=== PATIENT | male | born 1945 | race Caucasian/White ===

== ENCOUNTER 2024-12-18 11:32 | Outpatient (AMB) | payer MEDICARE, SELFPAY ==
--- NOTE | 2024-12-18 12:14 | MHC.OFFVIS ---
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 He is presenting with evaluation concerns for tremors and neuropathy. He notes that despite an increased dosage of carbidopa-levodopa, prescribed to manage resting hand tremors indicative of Parkinson's Disease, the symptoms have remained unimproved. His current approach to suppressing tremors involves intentional thumb movements. Parkinsonian symptoms have also manifested with gait irregularities, primarily shuffling movements, without significant climate change risk assessor the last few months. The patient is concurrently experiencing symptoms of neuropathy characterized by burning pain and muscle atrophy. The neuropathy is managed with high doses of gabapentin, supplemented by oxycodone for pain relief. Despite these measures, functional difficulties persist, contributing to deficits in hand strength and dexterity. His medical history includes atrial fibrillation managed with an implant and well-controlled diabetes with maintained blood sugar levels. Significant past events include a fall resulting in trauma and a leg bypass surgery. There is no recent change in symptoms or additional systemic manifestations noted. [facility] Medical History (Updated 12/18/24 @ 12:33 by Neha Ansari MD) Peripheral neuropathy Osteoarthritis Multifactorial gait disorder Review of Systems Const Details: - Neurological: Reports hand tremors, muscle atrophy, and changes in gait. Denies any new stroke symptoms. - Musculoskeletal: Reports pain and muscle atrophy associated with arthritis and neuropathy. - Endocrine: Denies recent changes in blood sugar levels or symptoms attributed to diabetes. - Cardiovascular: Reports controlled AFib with an implant. Physical Exam Neuro Other: Mental Status: Alert and oriented to person, place, and time. Normal attention. Normal spontaneous speech, fluency, and comprehension. No obvious issues with mood and memory. Affect is appropriate. Cranial Nerves: CN II: Visual harris full to confrontation, visual acuity intact. CN III, IV, : Pupils equal, round, reactive to light and accommodation. Extraocular movements are normal. CN V: Facial sensation is normal. CN VII: Facial movements symmetrical. CN VIII: Hearing intact to bedside conversation is normal. CN IX, X: Palate elevates symmetrically. CN XI: Shoulder shrug and head turn symmetrical. CN XII: Tongue midline without atrophy or fasciculations. Significant hand muscle atrophy, left hand resting tremor Extrapyramidal: Full facial expressions and blinking. No rigidity. Movements are appropriate with no tremor or abnormality. Speech: Normal; no dysarthria or tremor. Assessment & Plan Assessment & Plan (1) Multifactorial gait disorder: Code(s): R26.89 - Other abnormalities of gait and mobility Category: Medical (2) Peripheral neuropathy: Code(s): G62.9 - Polyneuropathy, unspecified Category: Medical Qualifiers: Peripheral neuropathy type: polyneuropathy, unspecified Qualified Code(s): G62.9 - Polyneuropathy, unspecified (3) Parkinson disease: Code(s): G20.A1 - Parkinson's disease without dyskinesia, without mention of fluctuations Category: Medical Qualifiers: Dyskinesia presence: without dyskinesia Fluctuating manifestations: without fluctuating manifestations Qualified Code(s): G20.A1 - Parkinson's disease without dyskinesia, without mention of fluctuations (4) Osteoarthritis: Code(s): M19.90 - Unspecified osteoarthritis, unspecified site Category: Medical Qualifiers: Osteoarthritis location: unspecified site Osteoarthritis type: unspecified Qualified Code(s): M19.90 - Unspecified osteoarthritis, unspecified site Plan Impression: a: Multifactorial gait disorder b: Significant arthritis c: Significant Neuropathy d: Parkinson disease Rec: a: Continue carbidopapa levodopa 25/100 3 times a day b: EMG/NCS arms to classify in upper extremities c: Gabapentin dose probably can be decreased d: CT brain w/o cont to r/o alternate cause of parkinson, like NPH Orders: Orders CT head/brain wo IV con Today G20.A1 - Parkinson's disease without dyskinesia, without mention of fluctuations NE nerve conduction velocity Today G62.9 - Polyneuropathy, unspecified NE electromyogram (EMG) Today G62.9 - Polyneuropathy, unspecified Coding Level of Care Code Est Pt Level 4 (51220) Diagnoses Multifactorial gait disorder R26.89 Peripheral polyneuropathy G62.9 Peripheral neuropathy type: polyneuropathy, unspecified Parkinson's disease without dyskinesia or fluctuating manifestations G20.A1 Dyskinesia presence: without dyskinesia Fluctuating manifestations: without fluctuating manifestations Osteoarthritis, unspecified osteoarthritis type, unspecified site M19.90 Osteoarthritis location: unspecified site Osteoarthritis type: unspecified
--- OUTSIDE RECORDS SUMMARY | 2024-12-18 12:53 | XMS_ITS | Clinical Summary ---
Author Organization [address] [facility] Address [address] [place] [address] Phone Care Team Providers Care Test Baker Name Role Phone Snow Cueto MD Primary Care Provider Allergies No known active allergies Medications No known medications Active Problems Problem Noted Date Diagnosed Date CKD (chronic kidney disease) stage 3, GFR 30-59 ml/min ([facility] V24, [facility] V28) 07/04/2013 DJD (degenerative joint disease) 07/04/2013 DM (diabetes mellitus), type 2 with neurological complications ([facility] V24, [facility] V28) 07/04/2013 Type 2 diabetes mellitus wit h renal manifestations, controlled ([facility] V24, [facility] V28) 07/04/2013 GERD (gastroesophageal reflux disease) 4 Mixed hyperlipidemia 07/04/2013 Surgical History Surgery Date Site/Laterality Comments CARPAL TUNNEL RELEASE 05/03/1994 PROCEDURE: OK NEUROPLASTY &/TRANSPOS MEDIAN NRV CARPAL TUNNE TOTAL KNEE ARTHROPLASTY 05/03/1989 PROCEDURE: HISTORICAL TOTAL KNEE REPLACE; COMMENT: left TONSILLECTOMY 05/03/1955 PROCEDURE: HISTORICAL TONSILLECTOMY APPENDECTOMY 05/03/1954 PROCEDURE: HISTORICAL APPENDECTOMY COLONOSCOPY 04/15/2009 PROCEDURE: OK COLONOSCOPY STOMA DX INCLUDING COLLJ SPEC SPX COLONOSCOPY 07/14/13 [facility] PROCEDURE: OK COLONOSCOPY STOMA DX INCLUDING COLLJ SPEC SPX; COMMENT: tics; would not repeat ESOPHAGOGASTRODUODENOSCOPY 07/14/13 [facility] PROCEDURE: OK ESOPHAGOGASTRODUODENOSCOPY TRANSORAL DIAGNOSTIC; COMMENT: normal OTHER SURGICAL HISTORY 08/03/2021 PROCEDURE: OK SLCTV CATHJ 3RD+ ORD SLCTV ABDL PEL/LXTR BRNCH OTHER SURGICAL HISTORY 08/03/2021 PROCEDURE: X-RAY ABDOMINAL AORTA, LEG ARTERIES OTHER SURGICAL HISTORY 08/03/2021 PROCEDURE: X-RAY EXAM OF ARM/LEG ARTERY OTHER SURGICAL HISTORY 08/03/2021 PROCEDURE: ULTRASOUND GUIDANCE FOR VASCULAR AC Family History Relation Name Status Comments Brother (Age 20) [place] Father (Age 83) MVA; prost ate cancer Mother (Age 50) Breast can cer; DM Social History Tobacco Use Types Packs/Day Years Used Date Smoking Tobacco: Some Days Smokeless Tobacco: Never Tobacco Cessation:Ready to Q uit: Not Asked; Counseling Given: Not Answered Alcohol Use Standard Drinks/Week Comments Yes 0.8 (1 standard drink = 0.6 oz p ure alcohol) Sex and Gender Information Value Date Recorded Sex Assigned at Not on file Legal Sex Male 6:12 AM EST Gender Identity Not on file Sexual Orientation Not on file Obstetrics History Last Filed Vital Signs Vital Sign Reading Time Taken Comments Blood Pressure - - Pulse - - Temperature - - Respiratory Rate - - Oxygen Saturation - - Inhaled Oxygen Concentration - - Weight 79.4 kg (175 lb) 05/10/2024 1:29 PM EST Height 188 cm (6' 2.02 ) 05/10/2024 1:29 PM EST Body Mass Index 22.46 05/10/2024 1:29 PM EST Plan of Treatment Health Maintenance Due Date Last Done Comments Diabetes: Annual Foot Exam 1955 Diabetes: Annual Retina Eye Exam 1955 RSV Immunization Adult Patients (1 - 1-dose 75+ series) 2018 Zoster Vaccines (2 of 2) 04/10/2021 02/13/2021, 01/02 Cholesterol Screening (Lipid Panel) 04/05/2022 Colorectal Cancer Screening: Colonoscopy 04/05/2022 Falls Risk Assessment 04/05/2022 Social Influencers of Health Screening 04/05/2022 Diabetes: Annual Urine Albumin-Creatinine Ratio (uACR) 04/16/2022 Diabetes: Blood Sugar Control Test (HGBA1C) 04/16/2022 01/13/2021 Diabetes: Annual GFR (Glomerular Filtration Rate) 11/03/2023 11/02/2022, 07/02/2022, 02/10/2022, Additional history exists COVID-19 Vaccine ( season) 2024 06/02/2022, 12/19/2020, 12/18/2020, Additional history exists Hypertension/CHF/CAD Annual BMP Blood Test 03/16/2024 11/02/2022, 07/02/2022, 02/10/2022, Additional history exists Depression Screening 05/03/2024 Influenza Vaccine (#1) 2025 , 04/06/2023, 03/19/2022, Additional history exists DTaP,Tdap,and Td Vaccines (3 - Td or Tdap) 02/05/2025 02/05/2015, 05/03/2009 Pneumococcal Vaccine: 50+ Years Completed 11/28/2014, 11/28/2014, 09/16/2011 HIB Vaccines Aged Out No longer eligi ble based on patient's age to complete this topic HPV Vaccines Aged Out No longer eligi ble based on patient's age to complete this topic Hepatitis A Vaccines Aged Out No long er eligible based on patient's age to complete this topic Hepatitis B Vaccines Aged Out No long er eligible based on patient's age to complete this topic IPV Vaccines Aged Out No longer eligi ble based on patient's age to complete this topic MMR Vaccines Aged Out No longer eligi ble based on patient's age to complete this topic Meningococcal ACWY Vaccine Aged Out N o longer eligible based on patient's age to complete this topic Meningococcal B Vaccine Aged Out No l onger eligible based on patient's age to complete this topic RSV Immunization Patients Under 20 months Aged Out No longer eligible based on patient's age to complete this topic Varicella Vaccines Aged Out No longer eligible based on patient's age to complete this topic Insurance [facility] Care Teams Test Baker Relationship Specialty Start Date End Date Snow Cueto MD [address] [place] [address] PCP - General 03/22/13
--- OUTSIDE RECORDS SUMMARY | 2024-12-18 12:53 | XMS_ITS | Clinical Summary ---
Author Organization [facility] Address [address] [place] [id number] Care Team Providers Care Mold Burner Name Role Phone Snow Cueto MD Primary Care Provider [phone] Allergies Active Allergy Reactions Criticality Noted Date Comments Sulfamethoxazole-Trim ethoprim Rash/Dermatitis Low 01/13/2021 Honey Bee Venom Anaphylaxis High 01/13/2021 Pregabalin Unknown/Patient and Family Unable to Define Medium 01/13/2021 Other Hives Medium 01/13/2021 Spider venom- open wounds -cellulitis Medications albuterol (PROVENTIL HFA; VENTOLIN HFA) 108 (90 Base) MCG/ACT inhaler Inhale 2 puffs every 4 (four) hours as needed for wheezing. Take day of surgery If needed. Active buPROPion (WELLBUTRIN SR) 150 MG 12 hr tablet Take 150 mg by mouth 2 (two) times a day in the morning and the early evening.. Take day of surgery Active carvedilol (COREG) 6.25 MG tablet Take 6.25 mg by mouth every morning. Take day of surgery Active VITAMIN D PO Take 5,000 Units by mouth every morning. Stop medication today, 01/13/21 Active apixaban (Eliquis) 5 MG tablet Take 5 mg by mouth 2 (two) times a day. Stop medication on 01/16/21. Active fentaNYL (DURAGESIC) 50 mcg/hr patch Place 1 patch on the skin every third day (72 hrs). Take day of surgery Active folic acid (FOLVITE) 1 MG tablet Take 1 mg by mouth every morning. Stop medication today 01/13/21 Active gabapentin (NEURONTIN) 300 MG capsule Take 300 mg by mouth 4 (four) times a day. Take day of surgery Active lisinopril (PRINIVIL,ZeSTR IL) 2.5 MG tablet Take 2.5 mg by mouth every morning. Do not take day of surgery Active OMEprazole (PriLOSEC) 20 MG capsule Take 20 mg by mouth every morning before breakfast. Take day of surgery Active oxyCODONE (ROXICODONE) 10 mg immediate release tablet Take 10 mg by mouth every 4 (four) hours as needed. Take day of surgery. Active predniSONE (DELTASONE) 20 MG tablet Take 1 mg by mouth 2 (two) times a day. Takes one tab in the morning and 1/2 tab in the evening. Take day of surgery Active simvastatin (ZOCOR) 20 MG tablet Take 20 mg by mouth nightly. Take the night before surgery Active Multiple Vitamin (MULTIVITAMIN ADULT PO) Take 1 tablet by mouth every morning. Stop today, 01/13/21 Active acetaminophen (TYLENOL) 325 MG tabletIndicatio ns:Strain of peroneal tendon, right, initial encounter Take 3 tablets (975 mg total) by mouth 4 times daily (every 6 hours) as needed for mild pain or moderate pain. 1 Active senna-docusate (SENNA-S) 8.6-50 MGIndications:S train of peroneal tendon, right, initial encounter Take 2 tablets by mouth nightly. 60 tablet 1 Active lactulose (ENULOSE) 10 gm/15 mL solutionIndicat ions:Strain of peroneal tendon, right, initial encounter Take 30 mL (20 g total) by mouth every 4 (four) hours as needed (if no bowel movment by day 3). Do not start before January 23, 2021. 240 mL 1 Active Active Problems Problem Noted Date Diagnosed Date Strain of peroneal tendon, right, initial encoun ter 01/20/2021 Osteoporosis 08/20/2020 [facility] current use of anticoagulant 9 Overview (01/13/2021): Last Assessment & Plan: Continue exactly as prescribed. Due to chronic anticoagulation I took extra caution of the right knee aspiration to make sure that he formed stable clot at the procedure site before letting him leave the office. Chronic obstructive pulmonary disease 07/17/2017 Chronic deep vein thrombosis (DVT) of femoral vein of left lower extremity 07/17/2017 Essential hypertension 07/17/2017 Overview (01/13/2021): Last Assessment & Plan: Blood pressure today well controlled on his current regimen. CKD (chronic kidney disease) 07/17/2017 GERD (gastroesophageal reflux disease) 8 Overview (01/13/2021): Last Assessment & Plan: Continue omeprazole 20 mg daily as a gastroprotective agent. Hyperlipidemia 07/17/2017 Overview (01/13/2021): Last Assessment & Plan: Continue simvastatin. PAD (peripheral artery disease) 07/17/2017 Overview (01/13/2021): Last Assessment & Plan: He has been treated with a new prosthesis which fits his stump very well without pain or excessive motion and he is more confident when walking with, and he is quite happy with this. He will go back to the reel system operator to fine tune this prosthetic device. Type 2 diabetes mellitus wit h circulatory disorder, without long-term current use of insulin 07/17/2017 Typical atrial flutter 07/17/2017 Overview (01/13/2021): Last Assessment & Plan: Status post ablation, he is hemodynamically stable on current medications and anticoagulation. Family History Medical History Relation Name Comments Other Brother 1 [place] Lung cancer Brother 2 71 Kidney cancer Father Breast cancer Mother Relation Name Status Comments Brother 1 Alive Brother 2 71 Alive Daughter 1 Alive Daughter 2 Alive Father (Age 82) Mother (Age 52) Sister Alive Son 1 Alive Son 2 Alive Son 3 Alive Social History Tobacco Use Types Packs/Day Years Used Date Smoking Tobacco: Former Cigarettes Smokeless Tobacco: Never Comments:Pipe occasionally Sex and Gender Information Value Date Recorded Sex Assigned at Not on file Legal Sex Male 4:02 PM EDT Gender Identity Not on file Sexual Orientation Not on file Last Filed Vital Signs Vital Sign Reading Time Taken Comments Blood Pressure 126/58 01/20/2021 1:22 PM EDT Pulse 54 01/20/2021 1:22 PM EDT Temperature 35.6 C (96 F) 01/20/2021 1:22 PM EDT Respiratory Rate 16 01/20/2021 1:22 PM EDT Oxygen Saturation 99% 01/20/2021 1:2 2 PM EDT Inhaled Oxygen Concentration - - Weight 85.1 kg (187 lb 9.6 oz) 01/13/2021 11:00 AM EDT with leg prosthesis Height 188 cm (6' 2 ) 01/13/2021 11:00 AM EDT Body Mass Index 24.09 01/13/2021 11:00 AM EDT Plan of Treatment Health Maintenance Due Date Last Done Comments Foot Exam 1955 Lipid Panel 1955 Ophthalmology Exam 1953 Microalbumin/Creatinine Ratio Urine 1961 DTaP/Tdap/Td Vaccines (1 - Tdap) 1962 Pneumococcal Vaccines 50+ (1 of 2 - PCV) 1962 Zoster (Shingles) Vaccine (1 of 2) 1993 RSV Vaccine 60 years and older and Patients (1 - 1-dose 75+ series) 2018 Hemoglobin A1C 07/13/2021 01/13/2021, 10/10/2019 Creatinine with GFR 01/13/2022 01/13/2021 COVID-19 Vaccine ( season) 2024 07/13/2020, 06/08/2020 Influenza Vaccine 12/01/2024 03/01/2019, , 01/05/2017, Additional history exists Hepatitis B Vaccines Aged Out No long er eligible based on patient's age to complete this topic Medical Devices Implanted Type Area Sewer And Cutter Finger Buff Material Device Identifier Shelf Expiration Date Model / Serial / Lot [id number] Screw Interference Bcmps 15mm 5.5mm Acl [employer] Sterl - [id number] Implanted:Qty: 1 on 01/20/2021 by Antwon Lord MD at [facility] Screw Right: Foot [employer] 06/02/2024 [id number] / / [id number] 4.0x 26mm Cannulated Screw Implanted:Qty: 1 on 01/20/2021 by Antwon Lord MD at [facility] Screw Right: Foot [employer] [id number] / / Procedures Procedure Name Priority Date/Time Associated Diagnosis Comments HEMOGLOBIN A1C WITH ESTIMATED AVERAGE GLUCOSE Routine 01/13/2021 1:24 PM EDT Gastroesophageal reflux disease, unspecified whether esophagitis present Type 2 diabetes mellitus with diabetic peripheral angiopathy without gangrene, without long-term current use of insulin (HCC) Chronic bronchitis, unspecified chronic bronchitis type (HCC) Essential hypertension Preop examination Strain of peroneal tendon, right, initial encounter COMPREHENSIVE METABOLIC PANEL Routine 01/13/2021 1:24 PM EDT Gastroesophageal reflux disease, unspecified whether esophagitis present Type 2 diabetes mellitus with diabetic peripheral angiopathy without gangrene, without long-term current use of insulin (HCC) Chronic bronchitis, unspecified chronic bronchitis type (HCC) Essential hypertension Preop examination Strain of peroneal tendon, right, initial encounter from Last 3 Months or Most Recently Relevant to Health Maintenance Results * Hemoglobin A1c with Estimated Average Glucose (01/13/2021 1:24 PM EDT) Hemoglobin A1C 4.8 <5.7 % 01/13/2021 11:03 PM EDT Comment: A1c% Interpretation 5.7 - 6.0 Increase risk of diabetes 6.1 - 6.4 Higher risk of diabetes > or = 6.5 Consistent with diabetes Diabetes Care, 33(Supp 1):S1-S61, 2009 Estimated Average Glucose 91 mg/dL 01/13/2021 11:03 PM EDT Blood specimen (specimen) Blood specimen / Unknown 01/13/2021 1:24 PM EDT 01/13/2021 8:15 PM EDT us Damian Dockery [facility] BLOOD ORDERABLES Final Result [facility] [address] [place] [address] * (ABNORMAL) Comprehensive Metabolic Panel (01/13/2021 1:24 PM EDT) Glucose 90 65 - 99 mg/dL 01/13/2021 9:40 PM [facility] Comment:Fasting: <100 mg/dL, Non-Fasting: <200 mg/dL (ADA 2005) Blood Urea Nitrogen (BUN) 26(H) 8 - 21 mg/dL 01/13/2021 9:40 PM [facility] Creatinine 1.3 0.5 - 1.3 mg/dL 01/13/2021 9:40 PM [facility] eGFR 54(L) >59 01/13/2021 9:40 PM [facility] Comment:MDRD in mL/min/1.73 sq meters. GFR - 65 >59 01/13/2021 9:40 PM [facility] Comment:MDRD in mL/min/1.73 sq meters. Sodium 139 136 - 145 mmol/L 01/13/2021 9:40 PM [facility] Potassium 5.5(H) 3.4 - 5.3 mmol/L 01/13/2021 9:40 PM [facility] Chloride 105 98 - 107 mmol/L 01/13/2021 9:40 PM [facility] CO2 23 22 - 33 mmol/L 01/13/2021 9:40 PM [facility] Calcium 9.1 8.7 - 10.5 mg/dL 01/13/2021 9:40 PM [facility] Alkaline Phosphatase 254(H) 45 - 128 U/L 01/13/2021 9:40 PM [facility] Aspartate Aminotrans (AST) 67(H) 10 - 55 U/L 01/13/2021 9:40 PM [facility] Alanine Aminotrans (ALT) 59(H) 10 - 55 U/L 01/13/2021 9:40 PM [facility] Bilirubin, Total 0.7 0.2 - 1.0 mg/dL 01/13/2021 9:40 PM [facility] Protein, Total 6.8 6.3 - 8.3 g/dL 01/13/2021 9:40 PM EDT Albumin 3.8 3.4 - 4.8 g/dL 01/13/2021 9:40 PM EDT BUN/Creatinine Ratio 20 10.0 - 25.0 Ratio 01/13/2021 9:40 PM EDT Globulin 3.0 1.5 - 3.9 g/dL 01/13/2021 9:40 PM EDT Albumin/Globulin Ratio 1.3 1.0 - 3.0 Ratio 01/13/2021 9:40 PM EDT Anion Gap 11 7 - 17 01/13/2021 9:40 PM EDT Blood specimen (specimen) (Plasma/Serum) 01/13/2021 1:24 PM EDT 01/13/2021 8:15 PM EDT Damian Dockery [facility] BLOOD ORDERABLES Final Result Performing Organization Address City/State/[facility] Co de Phone Number [facility] [address] [id number] from Last 3 Months or Most Recently Relevant to Health Maintenance Insurance [facility] MEDICARE [facility] MEDICARE Advance Directives * Full Code (Latest Code Status on File) Date Activated Date Inactivated Comments 01/20/2021 9:39 AM * Full Code Date Activated Date Inactivated Comments 01/20/2021 7:35 AM 01/20/2021 9:39 AM Care Teams Mold Burner Relationship Specialty Start Date End Date Snow Cueto MD [address] [place] [id number] PCP - General Family Medicine 01/01/21
--- OUTSIDE RECORDS SUMMARY | 2024-12-18 12:53 | XMS_ITS | Encounter Summary ---
Author Organization [facility] Address [address] [place] [address] Phone Care Team Providers Care Physicist Solid State Name Role Phone Snow Cueto MD Primary Care Provider [phone] Zenon Bruce MD Unavailable [email or web address] Chyna James MD Unavailable [phone] Encounter Details Date Type Department Care Team (Late st Contact Info) Description 06/06/2021 Procedure Pass Non-Invasive Cardiology [address] [place] [address] Social History Tobacco Use Types Packs/Day Years Used Date Smoking Tobacco: Former Pipe Q uit: 06/16/2012 Smokeless Tobacco: Never 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 Alcohol Use Standard Drinks/Week Comments Never 0 (1 standard drink = 0.6 oz pur e alcohol) Sex and Gender Information Value Date Recorded Sex Assigned at Male 02/26/2019 7:27 PM EDT Legal Sex Male 10:10 PM EDT Gender Identity Male 02/26/2019 7:27 PM EDT Sexual Orientation Don't know 02/28/2024 5: 32 PM EDT documented as of this encounter Plan of Treatment Upcoming Encounters Date Type Department Care Team (Late st Contact Info) Description 12/20/2024 1:30 AM EDT Home Care Visit [facility] [address] [place] [phone] Monae Orr RN [address] [place] [address] carlos 12/22/2024 Home Care Visit [facility] [address] [place] [phone] Monae Orr, JUVE [address] [place] [address] carlos 12/27/2024 12:30 AM EDT Home Care Visit [facility] [address] [place] [phone] Monae Orr, JUVE [address] [place] [address] carlos 12/29/2024 Home Care Visit [facility] [address] [place] [phone] Monae Orr RN [address] [place] [phone] carlos 01/02/2025 1:00 PM EDT Office Visit [facility] [address] [place] [address] [address]rd Floor, [address] [address] Echo Mckeon DNP [address] [place] [phone] 01/03/2025 12:30 AM EDT Home Care Visit [facility] [address] [place] [phone] Monae Orr, JUVE [address] [place] [address] carlos 01/05/2025 Home Care Visit [facility] [address] [place] [phone] Monae Orr, JUVE [address] [place] [address] carlos 01/10/2025 12:30 AM EDT Home Care Visit [facility] [address] [place] [phone] Monae Orr RN [address] [place] [address] carlos 01/12/2025 Appointment [facility] [address], [place] [phone] Monae Orr RN [address] [place] [address] carlos 03/01/2025 4:00 PM EDT Office Visit [facility] Rheumatology [address] [place] [address] Chyna James MD [address] [facility], [facility] [address] [place] [address] [email or web address] documented as of this encounter Visit Diagnoses Not on filedocumented in this encounter Additional Health Concerns Infection Onset Date Last Indicated Resolved Time CoV-Risk 10/10/2021 10/10/2021 10/21/2021 1:22 AM EDT CoV-Risk 11/26/2022 11/26/2022 12/07/2022 1:21 AM EDT CoV-Exposed Comment:Positive COVID-19 02/28/2024 02/28/2024 02/28/2024 7:2 9 PM EDT CoV-Risk 02/28/2024 02/28/2024 02/28/2024 7:29 PM EDT COVID-19 02/28/2024 02/28/2024 03/20/2024 1:24 AM EST documented as of this encounter Care Teams Physicist Solid State Relationship Specialty Start Date End Date Snow Cueto MD [address] [place] [phone] [email or web address] - General 10/19/17 Zenon Bruce MD [email or web address] Historical LMR Provider 02/18/17 Chyna James MD [address] [place] [address], [address] [address] Historical LMR Provider 02/18/17 documented as of this encounter Additional Source Comments The information contained in this document represents components of the legal health record. It is not the complete legal health record.[facility]
--- OUTSIDE RECORDS SUMMARY | 2024-12-18 12:53 | XMS_ITS | Patient Health Record ---
Author Organization [facility] Address [address] [place] [address] Care Team Providers Care Consulting Technical Manager Name Role Phone Snow Cueto Primary Care Provider Unavailab Jeannette Espinal Unavailable [phone] Nasim Bella Unavailable [phone] Allergies Allergen (clinical drug ingredient) Drug/Non Drug Allergy documented on EMR Reaction Allergy Type Onset Date Status Bee Sting Unknown Allergy Active Results Component Value Reference Range Notes HEMOGLOBIN A1C (GLYCOHEMOGLO BIN) Reviewed date:12/30/2023 02:10:52 PM Interpretation: Performing Lab: Notes/Report: HEMOGLOBIN A1C % (HH) 6.1 HEMOGLOBIN A1C (GLYCOHEMOGLO BIN) Reviewed date:10/25/2024 03:30:27 PM Interpretation: Performing Lab: Notes/Report: HEMOGLOBIN A1C % (HH) 5.8 Reason For Referral No Information Medications Medication SIG (Take, Route, Frequency, Duration) Notes Start Date End Date Status Keflex 500 MG 1 capsule Orally bianca ry 12 hrs; Duration: 30 days 03/21/2015 Not-Taking Probiotic Not-Taking Extra Depth Diabetic Shoes with 3 Pair Custom heat-molded multi-density innersoles for 1 year Dx: 07/14/2018 A ctive Diabetic Insoles Act khalif Vitamin B-12 100 MCG 1 tablet Orally Onc e a day Active Omeprazole 20 MG 1 capsule 30 minutes before morning meal Orally Once a day; Duration: 30 day(s) Active Meloxicam 7.5 MG 1 tablet Orally bid pc; Duration: 30 days 03/21/2015 Not-Taking Albuterol PRN Active OxyCONTIN Not-Taking Ranitidine & Diet Manage Prod Not-Taking Doxycycline 7 Days Not-Taki ng Carvedilol Active Bupropion & Diet Manage Prod Active Multivitamin Active Augmentin 500-125 MG 1 tablet Orally Twi ce a day; Duration: 7 days 02/21/2015 Not-Taking PreserVision AREDS A ctive Orencia 125 MG/ML 1 ml Subcutaneous 12/19/2015 Not-Taking fentaNYL 50 MCG/HR 1 patch to skin Transdermal Active Morphine Sulfate 15 MG 1 tablet as neede d Orally twice a day Not-Taking Eliquis 2.5 MG Orally Twice daily Active Wellbutrin Not-Takin g Coreg Active Sulindac Not-Taking Augmentin 500-125 MG as directed Orally every 12 hrs; Duration: 30 days 02/25/2015 Not-Taking Methotrexate 1 tab Oral Active Lisinopril 2.5 MG 1 tablet Orally Once a day; Duration: 30 day(s) Active Gabapentin Active Folic Acid 1 MG 1 tablet Orally twic e a day Active Simvastatin 20 MG 1 tablet in the even ing Orally Once a day Active predniSONE 1 MG 1 tablet Orally Once a day Active oxyCODONE HCl 5 MG 1 tablet Orally ever y 6 hrs Active Immunizations Vaccine Route Administration Date Status Comme nts Influenza Unknown 06/12/2014 Administered Influenza Unknown 02/12/2015 Administered Influenza Unknown 01/02/2016 Administered Influenza Unknown 02/03/2017 Administered Influenza Unknown 01/01/2018 Administered Influenza Unknown 01/01/2021 Administered Influenza Unknown 03/03/2023 Administered Influenza Unknown 02/01/2024 Administered Pneumococcal Unknown 02/13/2016 Administered COVID-19 Moderna Vaccine Unknown 01/01/2021 Administere d 1st 06/08/2020 2nd 06/29/2020 Social History Tobacco Use: Social History Observation Description Date Details (start date - stop date) Never Smoker NA - NA Tobacco use other than smoking: Question Answer Notes Are you an other tobacco user? No Tobacco Control (Standard) Question Answer Notes Tobacco use: Nonsmoker Additional Findings: Tobacco non-user Current no nsmoker AUDIT-C (Standard) Question Answer Notes Did you have a drink containing alcohol in the p ast year? No Points 0 Interpretation Negative Section Notes: eye exam 05/2014 flu shot 01/2015 eye exam 05/2014 flu shot 01/2015 eye exam 05/2014 flu shot 01/2015 eye exam 05/2014 flu shot 01/2015 eye exam 05/2014 flu shot 01/2015 Problems Problem Type SNOMED Code ICD Code Onset Dates Problem Status W/U Status Risk Notes Problem Ischemic ulcer of right heel, limited to breakdown of skin (L97.411) Active confirmed Response to treatment Vital Signs Blood pressure diastolic 65 mm Hg 10/25/2024 Height 6 ft 1 in in 10/25/2024 Blood pressure systolic 115 mm Hg 10/25/2024 Weight 197 lbs 10/25/2024 BMI 25.99 kg/m2 10/25/2024 Procedures Procedure Date Ordered Date Performed Result Body Sit e 62560-AZHMKNW NAIL, 1-5 10/25/2024 N/A Encounters Encounter Location Date Provider Diagnosis [address] [address] 12/30/2023 Nasim Bella Other hammer toe(s) (acquired), right foot M20.41 ; Pain in right toe(s) M79.674 ; Type 2 diabetes mellitus with diabetic polyneuropathy E11.42 and Tinea unguium B35.[address] [address] 10/25/2024 Jeannette Vee Type 2 diabetes mellitus with diabetic polyneuropathy E11.42 ; Tinea unguium B35.1 ; Ischemic ulcer of right heel, limited to breakdown of skin L97.411 and Deep tissue injury T14.8XXA [address] [address] 10/25/2024 Jeannette Vee Assessments Encounter Date Diagnosis (ICD Code) Assessment Notes Treatment Notes Treatment Clinical Notes Section Notes 12/30/2023 Other hammer toe(s) (acquired), right foot (ICD-10 - M20.41) 10/25/2024 Type 2 diabetes mellitus with diabetic polyneuropathy (ICD-10 - E11.42) 10/25/2024 Tinea unguium (ICD-10 - B35.1) 10/25/2024 Ischemic ulcer of right heel, limited to breakdown of skin (ICD-10 - L97.411) Response to treatment 12/30/2023 Pain in right toe(s) (ICD-10 - M79.674) 12/30/2023 Type 2 diabetes mellitus with diabetic polyneuropathy (ICD-10 - E11.42) 10/25/2024 Deep tissue injury (ICD-10 - T14.8XXA) 12/30/2023 Tinea unguium (ICD-10 - B35.1) Plan Of Treatment Pending Test Test Name Order Date X ray : Foot, right 2V 03/18/2011 X ray : Foot, right 2V 02/23/2011 X ray : Foot, right 2V 03/05/2011 X ray : Foot, right 2V 04/13/2011 X ray : Foot, right 2V 06/29/2011 X ray : Foot, right 2V 11/23/2011 X ray : Foot, right 2V 12/03/2011 X ray : Foot, right 2V 12/17/2011 X ray : Foot, right 2V 04/22/2015 X ray : Foot, right 2V 05/06/2015 X ray : Foot, right 2V 05/22/2015 Hemoglobin A1c 04/22/2015 Microalbumin, 24 hr Urine 05/01/2015 X ray : Foot, right 3V 05/21/2020 X ray : Foot, right 3V 12/27/2014 X ray : Foot, right 3V 10/05/2011 X ray : Foot, right 3V 02/16/2011 08798-QHELWGY NAIL, -01/22/2011 11960-DBEMEIP NAIL, 05-0709/03/2011 74384-EFWINJZ NAIL, 05-0704/13/2011 02091-ISIOFXC NAIL, 05-0706/29/2011 28851-LFBTCEX NAIL, 05-0711/12/2011 84001-NAIUABK NAIL, 05-0712/27/2014 26767-JEQBRZG NAIL, -07/31/2015 64201-HYQQFPU NAIL, 05-0701/27/2012 74070-WWVLQTS NAIL, 05-0704/13/2012 06157-ASACFAX NAIL, 05-0707/27/2012 11999-CAGWRKI NAIL, 05-0712/07/2012 68965-KSHSLSC NAIL, 05-0704/05/2013 51536-ZMUCCHN NAIL, 05-0708/07/2013 42551-CVYPCCQ NAIL, 05-0712/11/2013 29213-XNAJWZB NAIL, 1-5 04/12/2014 68696-LRLZGJK NAIL, -5 09/29/2017 75787-LHXVZOF NAIL, -5 12/23/2017 13339-ATGATUU NAIL, -5 03/31/2018 34750-EKOSQES NAIL, 1-5 10/10/2015 36766-TDPQJLV NAIL, -5 12/19/2015 56135-DMJMIDD NAIL, -5 06/15/2016 77029-EBYDCIR NAIL, -5 03/16/2016 22813-TTCBIBU NAIL, -5 12/16/2016 21211-YERYHRC NAIL, -5 03/10/2017 03456-SZYAFJR NAIL, -5 07/05/2017 49529-HXQMAIE NAIL, -10/25/2024 53038-Swakvwvh Plate 04/12/2014 08803-Ousjqben Plate 12/27/2014 55838-Gtzbiziz Plate 04/13/2011 36625- Debride <25 sq cm 10/12/2011 07921- Debride <25 sq cm 10/28/2011 57858- Debride <25 sq cm 09/03/2011 91855- Debride <25 sq cm 03/11/2015 99615- Debride <25 sq cm 12/27/2014 20305- Debride <25 sq cm 01/31/2015 18154- Debride <25 sq cm 05/17/2014 91091- Debride <25 sq cm 04/12/2014 43936- Debride <25 sq cm 03/20/2021 62521-OHXVBFX SKIN/TISSUE 07/31/2021 00666-IAYWPOD SKIN/TISSUE 07/01/2020 36867-AMZEGAR SKIN/TISSUE 04/17/2020 35675-STTHANH SKIN/TISSUE 01/31/2015 39676-BZKKVER SKIN/TISSUE 02/21/2015 22663-VGFOZKJ SKIN/TISSUE 03/11/2015 36182-ETNFOEL SKIN/TISSUE 03/21/2015 07542-FOGMCBE SKIN/TISSUE 02/25/2015 26562-BKMFECF SKIN/TISSUE 10/05/2011 37149-DQJUXZL SKIN/TISSUE 11/12/2011 22395-WJBKAJR SKIN/TISSUE 01/22/2011 19789-CAVQOLG SKIN/TISSUE 02/16/2011 79439-QHTA SKIN LESIONS, OVER 4 07/31/19 16 31441-DULN SKIN LESIONS, OVER 4 12/28/19 15 00688-FBKX SKIN LESIONS, OVER 4 12/12/19 14 99385-HCLN SKIN LESIONS, OVER 4 08/08/19 14 92731-LYHA SKIN LESIONS, OVER 4 03/31/20 18 29616-XCEY SKIN LESIONS, OVER 4 12/24/19 18 97646-WDIC SKIN LESIONS, OVER 4 07/15/19 19 51539-RQCZ SKIN LESIONS, OVER 4 10/19/19 19 02415-KDGC SKIN LESIONS, OVER 4 01/17/20 19 21780-ISBR SKIN LESIONS, OVER 4 05/24/19 20 97207-IWBN SKIN LESIONS, OVER 4 08/31/19 20 67735-BXMC SKIN LESIONS, OVER 4 12/29/19 20 81434-FTJL SKIN LESIONS, OVER 4 04/17/20 20 74133-NZHJ SKIN LESIONS, OVER 4 03/10/20 17 40125-RZMJ SKIN LESIONS, OVER 4 03/16/20 16 40790-KZEG SKIN LESIONS, OVER 4 06/15/19 17 83868-AVNB SKIN LESIONS, OVER 4 09/15/19 17 50580-WRBV SKIN LESIONS, OVER 4 12/17/19 17 37253-ZAJC SKIN LESIONS, OVER 4 12/19/19 16 92578-SUAG SKIN LESIONS, OVER 4 10/10/19 16 77923-UYJT SKIN LESIONS, OVER 4 07/06/19 18 36992-CINC SKIN LESIONS, OVER 4 03/20/20 21 06874-LFMP SKIN LESIONS, 2 TO 4 08/01/19 22 94274-LYGK SKIN LESIONS, 2 TO 4 09/30/19 18 83066-NNVE SKIN LESIONS, 2 TO 4 04/05/20 13 34629-HJTA SKIN LESIONS, 2 TO 4 12/08/19 13 20633-QNUK SKIN LESIONS, 2 TO 4 07/28/19 13 53347-NATD SKIN LESIONS, 2 TO 4 04/13/20 12 46527-ELGL SKIN LESIONS, 2 TO 4 02/22/20 15 53280-JYAZ SKIN LESIONS, 2 TO 4 01/23/20 11 46973-YYSZ SKIN LESIONS, 2 TO 4 04/13/20 11 33775-JGDB SKIN LESIONS, 2 TO 4 06/29/19 12 92711-CONP SKIN LESIONS, 2 TO 4 01/27/20 12 60410-TVLA SKIN LESIONS, 2 TO 4 09/03/19 12 30482-EUBPJYFE OF HEMATOMA/FLUID 011 35808-EJTXWRRK OF HEMATOMA/FLUID 018 08436-PDVQGKWH OF HEMATOMA/FLUID 018 50722-UPNFAFDU OF HEMATOMA/FLUID 020 85830-EYQROXQS OF HEMATOMA/FLUID 021 11765- Short Leg Cast 02/23/2011 93681- Unna Boot 03/05/2011 Next Appt Details Provider Name:Jeannette Garg johnny, 01/29/2025 02:30:00 PM, [address] [facility], [place], [address], Insurance Providers Payer Name Payer Address Payer Phone Subscriber Number Group Number Insured Name Patient Relationship to Insured Coverage Start Date Coverage End Date [employer] [address] [place] [address] [id number] [place] Nayak Self - patient is the insured Medical (General) History Medical History History ICD Code mumps measles chicken pox Arthritis Rheumatoid arthritis Macular degeneration type II diabetes Surgical History Surgery Date(Month/Year) carpal tunnel surgery hernia shoulder surgery left foot amputation 2010 hammer toe 11/11 colonoscopy/endoscopy 2014 hammertoe right 04/18/2015 right cataract 01/2018 left cataract 01/2018t stent 06/2020 Rt foot sx 01/20/21 Hospitalization History Reason Date(Month/Year) las 6 months, a few visits to ER 03/2022 [facility] -everyother day [facility] wound clinic - was admit mikey DX celulitis - removed LT ft due to infection 04/2017 Admitted to [facility] and transferred to [facility], x 4 days, fall 03/2014
--- OUTSIDE RECORDS SUMMARY | 2024-12-18 12:53 | XMS_ITS | Patient Health Record ---
Author Organization [facility] Address [address] [facility] [address] [place] [address] Care Team Providers Care Mill Order Scheduler Name Role Phone Liane Miranda Unavailable [phone] Figueroa Gracia Unavailable [phone] Allergies Allergen (clinical drug ingredient) Drug/Non Drug Allergy documented on EMR Reaction Allergy Type Onset Date Status sulfamethoxazole / trimethoprim Bactrim Unknown Drug Allergy Active pregabalin Lyrica Unknown Drug Allergy Active Reason For Referral No Information Medications Medication SIG (Take, Route, Frequency, Duration) Notes Start Date End Date Status Albuterol Sulfate HFA 108 (90 Base) MCG/ACT 1 puff as needed Inhalation every 4 hrs 03/23/2024 Active Methotrexate Sodium 2.5 MG as directed Orally 03/04 Active Ammonium Lactate 12 % 1 application Exte rnally Twice a day 03/23/2024 Active Naloxone HCl 0.4 MG/ML as directed Injection 03/23 Active Azithromycin 250 MG as directed Orally 03/23/2024 Active oxyCODONE HCl 10 MG 1 tablet as needed O rally every 6 hrs 03/23/2024 Active buPROPion HCl ER (SR) 150 MG 1 tablet in the morning Orally Once a day; Duration: 30 day(s) 03/23/2024 Active Simvastatin 20 MG 1 tablet in the even ing Orally Once a day; Duration: 30 day(s) 03/23/2024 Active Diclofenac 03/23/2024 Active Eliquis 5 MG as directed Orally 03/23/2024 Active EPINEPHrine 0.3 MG/0.3ML as directed Injection Active fentaNYL 50 MCG/HR 1 patch to skin Transdermal 03/23/2024 Active Gabapentin 300 MG 1 capsule Orally Onc e a day; Duration: 30 day(s) 03/23/2024 Active Ibuprofen 800 MG 1 tablet with food o r milk as needed Orally every 8 hrs 03/23/2024 Active Carbidopa-Levodopa 25-100 MG 2 tablets Orally 3x daily Ac tive K[place] [id number] UNIT/GM 1 application Ex ternally Twice a day 03/23/2024 Active Social History Tobacco Use: Social History Observation Description Date Details (start date - stop date) Never Smoker NA - NA Tobacco Control (Standard) Question Answer Notes Tobacco use: Nonsmoker Section Notes: Retired Disabled Lives with 8 children Former smoker, smokes occasional pipe rare alcohol Retired Disabled Lives with 8 children Former smoker, smokes occasional pipe rare alcohol Problems Problem Type SNOMED Code ICD Code Onset Dates Problem Status W/U Status Risk Notes Problem Essential hypertension (21207681) Essential (primary) hypertension (I10) Active confirmed Problem Chronic obstructive pulmonary disease (68594086) Chronic obstructive pulmonary disease, unspecified (J44.9) Active confirmed Problem Chronic ulcer of foot (827723891) Non-pressure chronic ulcer of right heel and midfoot with fat layer exposed (L97.412) Active confirmed Problem Chronic ulcer of right foot (disorder) (86401240176546080) 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) Active confirmed Problem Chronic ulcer of skin (88206344) Non-pressure chronic ulcer of skin of other sites with unspecified severity (L98.499) Active confirmed Problem 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) Active confirmed Problem Peripheral vascular disease (449115354) Peripheral vascular disease (I73.9) Active confirmed Problem Gastroesophageal reflux disease (497818659) Gastroesophageal reflux disease, unspecified whether esophagitis present (K21.9) Active confirmed Problem Neuropathy (544247903) Neuropathy (G62.9) Active confirmed Problem Chronic kidney disease stage 3 (disorder) (276014184) Chronic kidney disease, stage 3 (N18.30) Active confirmed Problem Atrial fibrillation (47791849) Atrial fibrillation (I48.91) Active confirmed Problem Degenerative joint disease (019102831) Degenerative joint disease (M19.90) Active confirmed Problem Abdominal aortic aneurysm (972314253) Abdominal aortic aneurysm (I71.40) Active confirmed Problem Age-related macular degeneration (disorder) (048519155) Macular degeneration (H35.30) Active confirmed Vital Signs Heart Rate 70 /min 12/18/2024 Temperature 97.2 degrees Fahrenheit 12/18/2024 Respiratory Rate 18 /min 12/18/2024 Height-cm 187.96 cm 12/18/2024 Oximetry 92 % 12/18/2024 Blood pressure diastolic 60 mm Hg 12/18/2024 Weight-kg 85.73 kg 12/18/2024 Height 74 in 12/18/2024 Blood pressure systolic 100 mm Hg 12/18/2024 Weight 189 lbs 12/18/2024 BMI 24.26 kg/m2 12/18/2024 Encounters Encounter Location Date Provider Diagnosis [facility] [address] [address] 12/18/2024 Figueroa Gracia Peripheral vascular disease I73.9 and Non-pressure chronic ulcer of right heel and midfoot with fat layer exposed L97.412 [facility] [address] [address] 04/03/2024 Liane Miranda Peripheral vascular disease I73.9 ; Non-pressure chronic ulcer of other part of right foot with necrosis of muscle L97.513 ; Non-pressure chronic ulcer of right heel and midfoot with fat layer exposed L97.412 and Neuropathy G62.9 [facility] [address] [address] 04/10/2024 Liane Miranda Peripheral vascular disease I73.9 ; Non-pressure chronic ulcer of other part of right foot with necrosis of muscle L97.513 ; Non-pressure chronic ulcer of right heel and midfoot with fat layer exposed L97.412 and Neuropathy G62.9 [facility] [address] [address] 04/17/2024 Liane Miranda Peripheral vascular disease I73.9 ; Non-pressure chronic ulcer of other part of right foot with necrosis of muscle L97.513 ; Non-pressure chronic ulcer of right heel and midfoot with fat layer exposed L97.412 ; Neuropathy G62.9 and Cellulitis of right leg L03.115 [facility] [address] [address] 04/24/2024 Liane Miranda Peripheral vascular disease I73.9 ; Non-pressure chronic ulcer of other part of right foot with necrosis of muscle L97.513 ; Non-pressure chronic ulcer of right heel and midfoot with fat layer exposed L97.412 ; Neuropathy G62.9 and Cellulitis of right leg L03.[address] [address] 05/08/2024 Liane Miranda Peripheral vascular disease I73.9 ; Non-pressure chronic ulcer of other part of right foot with necrosis of muscle L97.513 ; Non-pressure chronic ulcer of right heel and midfoot with fat layer exposed L97.412 and Neuropathy G62.[address] [address] 05/15/2024 Liane Miranda Peripheral vascular disease I73.9 ; Non-pressure chronic ulcer of other part of right foot with necrosis of muscle L97.513 ; Non-pressure chronic ulcer of right heel and midfoot with fat layer exposed L97.412 and Neuropathy G62.[address] [address] 05/29/2024 Liane Miranda Peripheral vascular disease I73.9 ; Non-pressure chronic ulcer of other part of right foot with necrosis of muscle L97.513 ; Non-pressure chronic ulcer of right heel and midfoot with fat layer exposed L97.412 and Neuropathy G62.[address] [address] 06/26/2024 Liane Miranda Peripheral vascular disease I73.9 ; Non-pressure chronic ulcer of other part of right foot with necrosis of muscle L97.513 ; Non-pressure chronic ulcer of right heel and midfoot with fat layer exposed L97.412 and Neuropathy G62.[address] [address] 07/10/2024 Liane Miranda Peripheral vascular disease I73.9 ; Non-pressure chronic ulcer of other part of right foot with necrosis of muscle L97.513 and Non-pressure chronic ulcer of right heel and midfoot with fat layer exposed L97.[address] [address] 07/24/2024 Figueroa Gracia Peripheral vascular disease I73.9 ; Non-pressure chronic ulcer of other part of right foot with necrosis of muscle L97.513 and Non-pressure chronic ulcer of right heel and midfoot with fat layer exposed L97.[address] [address] 11/13/2024 Liane Miranda Peripheral vascular disease I73.9 and Non-pressure chronic ulcer of right heel and midfoot with fat layer exposed L97.[address] [address] 11/20/2024 Liane Miranda Peripheral vascular disease I73.9 and Non-pressure chronic ulcer of right heel and midfoot with fat layer exposed L97.[address] [address] 12/04/2024 Liane Miranda Peripheral vascular disease I73.9 and Non-pressure chronic ulcer of right heel and midfoot with fat layer exposed L97.[address] [address] 03/23/2024 Liane Miranda [facility] [address] [address] 11/14/2024 Liane Miranda [facility] [address] [address] 11/14/2024 Liane Miranda [facility] [address] [address] 11/14/2024 Liane Miranda [facility] [address] [address] 11/17/2024 Liane Miranda Assessments Encounter Date Diagnosis (ICD Code) Assessment Notes Treatment Notes Treatment Clinical Notes Section Notes 04/03/2024 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) 04/03/2024 Peripheral vascular disease (ICD-10 - I73.9) Kehinde has recurrent posterior-lateral Right heel ulcer and a newer Right 5th toe ulcer. Unfortunately, with this contracted 5th toe, the ulcer has breeched into the bone I believe. I reassured that there are no signs of skin infection. We will monitor this toe very closely. May need to see Vascular sooner. I will see about getting recent arterial testing. He should get back into a shoe that will help offload the toes and the heel. His will call Leon the Swimming Professor to talk with him about options. He also has the globoped shoe as an option. We reviewed moist wound care instructions: moisturize intact skin and protect periwound. Cleanse wound with NS or fragrance free soap. Apply dressing as described above and change as directed. Keep covered otherwise. Do not air dry. Control leg edema to aid in healing. Wear compression for waking hours every day. Elevate ankles to heart level when sitting. Call sooner if any questions or concerns. They understand and agree with plan and I answered all questions to their satisfaction. ILiane, examined, evaluated, and treated the patient. Dr. Paul Mello was available for any questions or concerns that I may have had. 04/10/2024 Peripheral vascular disease (ICD-10 - I73.9) Kehinde has recurrent posterior-lateral Right heel ulcer and a newer Right 5th toe ulcer. The heel is healing. Unfortunately, with this contracted 5th toe, the ulcer has breeched into the bone. I performed bone debridement today. I reassured that there are no signs of skin infection. We will monitor this toe very closely. May need to see Vascular sooner and we will reassess this over the next few weeks. He should get back into a shoe that will help offload the toes and the heel. His will call Leon the Swimming Professor to talk with him about options. He also has the globoped shoe as an option. We reviewed moist wound care instructions: moisturize intact skin and protect periwound. Cleanse wound with NS or fragrance free soap. Apply dressing as described above and change as directed. Keep covered otherwise. Do not air dry. Control leg edema to aid in healing. Wear compression for waking hours every day. Elevate ankles to heart level when sitting. Call sooner if any questions or concerns. They understand and agree with plan and I answered all questions to their satisfaction. Liane Rogers, examined, evaluated, and treated the patient. Dr. Paul Mello was available for any questions or concerns that I may have had. 04/17/2024 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) 04/17/2024 Peripheral vascular disease (ICD-10 - I73.9) Kehinde has recurrent posterior-lateral Right heel ulcer and a newer Right 5th toe ulcer. His arterial circulation seems to be stable on exam. The heel is stable although, the shoe that he continues to wear during PT, is not ideal as I think it is rubbing and pressing on the heel ulcer. Begin wearing his Gloped heel offloading shoe again to aid in better offloading. Unfortunately, with this contracted 5th toe, the toe ulcer has breeched into the bone. I performed bone debridement last week, but it continues to probe to bone, so I am concerned about the risk of deeper infection and he may need toe amputation. Begin Doxycycline and I reviewed potential adverse effects. [place] back to Dr. Bella his Legal Recovery Specialist as he may need 5th toe ampuation. We reviewed moist wound care instructions: moisturize intact skin and protect periwound. Cleanse wound with NS or fragrance free soap. Apply dressing as described above and change as directed. Keep covered otherwise. Do not air dry. Control leg edema to aid in healing. Wear compression for waking hours every day. Elevate ankle to heart level when sitting. Call sooner if any questions or concerns. They understand and agree with plan and I answered all questions to their satisfaction. I, Liane Miranda WEL[employer]TER AR[employer]-C, examined, evaluated, and treated the patient. Dr. Paul Mello was available for any questions or concerns that I may have had. 04/24/2024 Peripheral vascular disease (ICD-10 - I73.9) Kehinde has a recurrent posterior-lateral Right heel ulcer and a newer Right 5th toe ulcer. His arterial circulation seems to be stable on exam but the 5th toe is breeching into the joint, so I have asked him to see Dr. Bella for eval for a toe amputation. The heel is stable although, the surrounding skin is macerated. So, he will d/c the silicone bordered foam and use barrier to the periwound and gauze and rhett. Cont wearing his Gloped heel offloading shoe again to aid in better offloading. Complete the Doxycycline as planned. We reviewed moist wound care instructions: moisturize intact skin and protect periwound. Cleanse wound with NS or fragrance free soap. Apply dressing as described above and change as directed. Keep covered otherwise. Do not air dry. Control leg edema to aid in healing. Wear compression for waking hours every day. Elevate ankle to heart level when sitting. Call sooner if any questions or concerns. They understand and agree with plan and I answered all questions to their satisfaction. ILiane, examined, evaluated, and treated the patient. Dr. Paul Mello was available for any questions or concerns that I may have had. I have personally spent 20 minutes total time today in preparation, patient care, and documentation for this visit, including the following: review of clinical lab tests; review of medical tests/procedures/serv ices. 05/08/2024 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) see above 05/08/2024 Peripheral vascular disease (ICD-10 - I73.9) Kehinde has a recurrent posterior-lateral Right heel ulcer and a newer Right 5th toe ulcer. Dr. Bella performed bone debridement and tendon release to save the toe and will see him this week for close f/u. We applied betadine and dcd to the toe. The heel is improving so cont offloading. Cont Aquacel Ag. Cont wearing his Gloped heel offloading shoe again to aid in better offloading. They will use skin lotion or lac hydrin daily to the foot and leg. We reviewed moist wound care instructions: moisturize intact skin and protect periwound. Cleanse wound with NS or fragrance free soap. Apply dressing as described above and change as directed. Keep covered otherwise. Do not air dry. Control leg edema to aid in healing. Wear compression for waking hours every day. Elevate ankle to heart level when sitting. Call sooner if any questions or concerns. They understand and agree with plan and I answered all questions to their satisfaction. I, Liane POLLACK, examined, evaluated, and treated the patient. Dr. Paul Mello was available for any questions or concerns that I may have had. 05/15/2024 Peripheral vascular disease (ICD-10 - I73.9) Kehinde has a recurrent posterior-lateral Right heel ulcer and Right 5th toe ulcer. Dr. Bella performed bone debridement and tendon release a couple weeks ago to save the toe and he has done well. For the toe cont betadine and dcd and change 3 times to daily prn. The heel is improving so cont offloading. Cont Aquacel Ag. Cont wearing his Gloped heel offloading shoe again to aid in better offloading. They will use skin lotion or lac hydrin daily to the foot and leg. We reviewed moist wound care instructions: moisturize intact skin and protect periwound. Cleanse wound with NS or fragrance free soap. Apply dressing as described above and change as directed. Keep covered otherwise. Do not air dry. Control leg edema to aid in healing. Wear compression for waking hours every day. Elevate ankle to heart level when sitting. Call sooner if any questions or concerns. They understand and agree with plan and I answered all questions to their satisfaction. ILiane, examined, evaluated, and treated the patient. Dr. Paul Mello was available for any questions or concerns that I may have had. 05/29/2024 Peripheral vascular disease (ICD-10 - I73.9) Kehinde has a recurrent posterior-lateral Right heel ulcer and Right 5th toe ulcer. Dr. Bella performed bone debridement and tendon release 3 weeks ago to save the toe and he has done well. The heel has improved. The toe is stable. Use betadine and dcd to the toe and heel. Daily to every other day dressing change. Cont wearing his Gloped heel offloading shoe again to aid in offloading. They will use skin lotion or lac hydrin daily to the foot and leg for the extra dry skin. 2 week f/u. sooner if issues. ILiane, examined, evaluated, and treated the patient. Dr. Paul Mello was available for any questions or concerns that I may have had. 06/26/2024 Peripheral vascular disease (ICD-10 - I73.9) Kehinde presents for his f/u with his today. The two ulcers are doing well. He will cont using betadine and DCD and changing dressings daily. He would like to take a break from the offloading Globoped shoe. He may, but he will slowly get into his diabetic shoe. Wear only 2-3 hours per day and then check the foot. If he does welll doing that for 1 week, he can start slowly increasing shoe wear time. After examination, I discussed the indication of debridement and he was agreeable. I then performed debridement to remove devitalized tissues as outlined. He tolerated procedure well. The wound site were then cleansed with wound cleanser and thereafter, a dressing as noted above was applied onto the wound site and zinc to mignon wound areas. The sites were then covered with a dry dressing. I, Liane RONQUILLO-Daisy, examined, evaluated , and treated the patient. Dr. Paul Mello was available for any questions or concerns that I may have had. 07/10/2024 Peripheral vascular disease (ICD-10 - I73.9) Kehinde presents for his f/u with his today. Doing well. All of his wounds appear to be healed. I do want to check on him in 1 month since he breaks down easily. We reviewed good skin care and diabetic foot care in detail. To help with protection: using a good skin cream like Eucerin or Cerave daily. use skin prep and a dressing to help cushion these areas. I, Liane RONQUILLO-Daisy, examined, evaluated , and treated the patient. Dr. Paul Mello was available for any questions or concerns that I may have had. 07/24/2024 Peripheral vascular disease (ICD-10 - I73.9) 11/13/2024 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) 11/13/2024 Peripheral vascular disease (ICD-10 - I73.9) Kehinde presents for with his today for recurrent right posterior heel ulceration. I pared a callus on right plantar 1st MTP but there was no ulcer. the lateral foot had a callus but there is no ulcer. For the recurrent right heel ulcer, begin Aquacel Ag. I reassured that there is no sign of infection. After examination, I discussed the indication of debridement and he was agreeable. I then performed debridement to remove devitalized tissues as outlined. He tolerated procedure well. The wound site were then cleansed with wound cleanser and thereafter, a dressing as noted above was applied onto the wound site and zinc to mignon wound areas. The sites were then covered with a dry dressing. He will get back into his globoped heel offloading shoe. We reviewed good skin care and diabetic foot care in detail. To help with protection: using a good skin cream like Eucerin or Cerave daily. use skin prep and a dressing to help cushion these areas. I, Liane RONQUILLO-C, examined, evaluated , and treated the patient. Dr. Paul Mello was available for any questions or concerns that I may have had. 11/20/2024 Peripheral vascular disease (ICD-10 - I73.9) Kehinde presents for with his today for recurrent right posterior heel ulceration. X-ray of right heel to r/o cause for pain. May be neuropathic heel pain. Cont Aquacel Ag. I reassured that there is no sign of infection AND it measures smaller. After examination, I discussed the indication of debridement and he was agreeable. I then performed debridement to remove devitalized tissues as outlined. He tolerated procedure well. The wound site were then cleansed with wound cleanser and thereafter, a dressing as noted above was applied onto the wound site and zinc to mignon wound areas. The sites were then covered with a dry dressing. Cont wearing his globoped heel offloading shoe. We reviewed good skin care and diabetic foot care in detail and reulceration prevention. We talked about options for pressure, friction and shearing. To help with protection: using a good skin cream like Eucerin or Cerave daily. use skin prep and a dressing to help cushion these areas. I, Liane RONQUILLO-Daisy, examined, evaluated , and treated the patient. Dr. Paul Mello was available for any questions or concerns that I may have had. 12/04/2024 Peripheral vascular disease (ICD-10 - I73.9) Kehinde presents for with his today for recurrent right posterior heel ulceration. X-ray of right heel from 11/20 was reviewed with him today and does not show any osteomyelitis of the heel. He does have bone spurs dorsal aspect of talonavicular joint and plantar aspect with no significant change from 09/20/23. Cont Aquacel Ag. I reassured that there is no sign of infection AND it measures smaller. After examination, I discussed the indication of debridement and he was agreeable. I then performed debridement to remove devitalized tissues as outlined. He tolerated procedure well. The wound site were then cleansed with wound cleanser and thereafter, a dressing as noted above was applied onto the wound site and zinc to mignon wound areas and dcd. Cont wearing his globoped heel offloading shoe. We reviewed good skin care and diabetic foot care in detail and reulceration prevention. We talked about options for pressure, friction and shearing. To help with protection: using a good skin cream like Eucerin or Cerave daily. use skin prep and a dressing to help cushion these areas. ILiane-C, examined, evaluated , and treated the patient. Dr. Paul Mello was available for any questions or concerns that I may have had. 12/18/2024 Peripheral vascular disease (ICD-10 - I73.9) Kehinde presents for with his today for recurrent right posterior heel ulceration. X-ray of right heel from 11/20 was reviewed with him today and does not show any osteomyelitis of the heel. He does have bone spurs dorsal aspect of talonavicular joint and plantar aspect with no significant change from 09/20/23. Cont Aquacel Ag. I reassured that there is no sign of infection AND it measures smaller. After examination, I discussed the indication of debridement and he was agreeable. I then performed debridement to remove devitalized tissues as outlined. He tolerated procedure well. The wound site were then cleansed with wound cleanser and thereafter, a dressing as noted above was applied onto the wound site and zinc to mignon wound areas and dcd. Cont wearing his globoped heel offloading shoe. We reviewed good skin care and diabetic foot care in detail and reulceration prevention. We talked about options for pressure, friction and shearing. To help with protection: using a good skin cream like Eucerin or Cerave daily. use skin prep and a dressing to help cushion these areas. I, Liane RONQUILLO-C, examined, evaluated , and treated the patient. Dr. Paul Mello was available for any questions or concerns that I may have had. 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) see above see above 05/29/2024 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) see above see above 05/15/2024 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) see above see above 04/24/2024 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) see above 05/08/2024 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) 04/17/2024 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) 04/03/2024 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) 04/10/2024 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) 04/03/2024 Neuropathy (ICD-10 - G62.9) 04/10/2024 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) 04/24/2024 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) 04/17/2024 Neuropathy (ICD-10 - G62.9) 05/08/2024 Neuropathy (ICD-10 - G62.9) 05/15/2024 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) 05/29/2024 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) 06/26/2024 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) 07/10/2024 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 I confirm the above care provided was rendered under my general supervision as initially planned and subsequently discussed and supervised by me. 12/18/2024 Other Today they are noted to be afebrile, and all other vital signs are noted to be in normal limits for this patient. Nursing removed there dressing(s), and I examined there wound(s), with no overt underlying s/s of infectious property noted, and no foul odor. WOUND NOTED TO: Today the wound is noted with based on assessment and measurements from last visit. The wound bed is noted with adherent / nonadherent slough, granular / hypergranulated tissue. The periwound is noted with callus / fibrinous rim. The wound is noted OVAL, CIRCULAR, IRREGULAR in shape. I reviewed debridement and rational, and they were agreeable to the procedure. I then procedure with debridement to removed devitalized tissue as outline above. They tolerated the procedure well. I cleansed there wound with Dakin's, then rinsed with saline, thereafter nursing applied to the wound bed, zinc to the periwound, followed by a dry-clean dressing. Continue with the above dressing orders continue with your scheduled FU wound care appointment and call with any questions or concerns WITH COMPRESSION: They were instructed to elevate ankles to heart level when sitting to keep control of leg edema. If they have pain to the leg, they will elevate. If elevation does not relieve pain in 1 hr, they need to be evaluated. Call us or PCP or seek urgent care. They understand and agree with plan and all questions were answered to their satisfaction. IFigueroa, MSN, MILK TANKER DRIVER, WELDER FITTER ARC-C, examined, evaluated , and treated the patient. Dr. Paul Mello was available for any questions or concerns that I may have had. A total of 35 minutes was spent on this visit (face to face and non face to face) documenting HPI and performing physical exam, reviewing previous notes and testing, reviewing and adjusting treatment plan, counseling the patient on treatment choices, disease process, expected outcomes, and documenting the findings in the note. Jg Rogers MD confirm that TIANA Silvestre CWS understands and adheres to the guidelines of the established clinical protocols in the office. I confirm the above care provided was rendered under my general supervision as initially planned and subsequently discussed and supervised by me. 04/24/2024 Other Jg Rogers MD confirm that TIANA Silvestre CWS understands and adheres to the guidelines of the established clinical protocols in the office. I confirm the above care provided was rendered under my general supervision as initially planned and subsequently discussed and supervised by me. 05/08/2024 Other Jg Rogers MD confirm that TIANA Silvestre CWS understands and adheres to the guidelines of the established clinical protocols in the office. I confirm the above care provided was rendered under my general supervision as initially planned and subsequently discussed and supervised by me. 05/15/2024 Other Jg Rogers MD confirm that TIANA Silvestre CWS understands and adheres to the guidelines of the established clinical protocols in the office. I confirm the above care provided was rendered under my general supervision as initially planned and subsequently discussed and supervised by me. 05/29/2024 Other Jg Rogers MD confirm that TIANA Silvestre CWS understands and adheres to the guidelines of the established clinical protocols in the office. I confirm the above care provided was rendered under my general supervision as initially planned and subsequently discussed and supervised by me. 06/26/2024 Other Jg Rogers MD confirm that TIANA Silvestre CWS understands and adheres to the guidelines of the established clinical protocols in the office. I confirm the above care provided was rendered under my general supervision as initially planned and subsequently discussed and supervised by me. 07/10/2024 Other Jg Rogers MD confirm that TIANA Silvestre CWS understands and adheres to the guidelines of the established clinical protocols in the office. I confirm the above care provided was rendered under my general supervision as initially planned and subsequently discussed and supervised by me. 07/24/2024 Other Resolved area to RLE wounds right heel, right 5th digit Patient is afebrile with no signs of skin infection. There was 100 % epithelialization noted with no open area. No debridement was performed at today's visit. Encouraged to elevate BLE as tolerated and to use protective dressing for next few days for new fragile skin. Patient was educated to call wound clinic with any questions comments or concerns. Thank you for allowing us to care for your wound was presents and stated that they would just call and not have follow-up due to they frequently come and rather not pay co[pays for being extra cautious A total of 35 minutes was spent on this visit (face to face and non face to face) documenting HPI and performing physical exam, reviewing previous notes and testing, reviewing and adjusting treatment plan, counseling the patient on treatment choices, disease process, expected outcomes, and documenting the findings in the note. IFigueroa, MSN, MILK TANKER DRIVER, WELDER FITTER ARC-C, examined, evaluated , and treated the patient. Dr. Paul Mello was available for any questions or concerns that I may have had. Jg Rogers MD confirm that Figueroa Gracia, MSN, MILK TANKER DRIVER, WELDER FITTER ARC-C understands and adheres to the guidelines of the established clinical protocols in the office. I confirm the above care provided was rendered under my general supervision as initially planned and subsequently discussed and supervised by me. 11/13/2024 Other Jg Rogers MD confirm that TIANA Silvestre CWS understands and adheres to the guidelines of the established clinical protocols in the office. I confirm the above care provided was rendered under my general supervision as initially planned and subsequently discussed and supervised by me. 11/20/2024 Other Jg Rogers MD confirm that TIANA Silvestre CWS understands and adheres to the guidelines of the established clinical protocols in the office. I confirm the above care provided was rendered under my general supervision as initially planned and subsequently discussed and supervised by me. 12/04/2024 Other Jg Rogers MD confirm that TIANA Silvestre CWS understands and adheres to the guidelines of the established clinical protocols in the office. I confirm the above care provided was rendered under my general supervision as initially planned and subsequently discussed and supervised by me. Plan Of Treatment Next Appt Details Provider Name:Liane arndt, 01/08/2025 11:00:00 AM, [address] [place] [address], [phone], Insurance Providers Payer Name Payer Address Payer Phone Subscriber Number Group Number Insured Name Patient Relationship to Insured Coverage Start Date Coverage End Date [facility] [address] [place], [place] [id number] [place] Self - patient is the insured 2 Medical (General) History Medical History History ICD Code Neuropathy G62.9 Essential (primary) hypertension I10 Abdominal aortic aneurysm I71.40 Other complications of amputation stump T87.89 Non-pressure chronic ulcer of skin of ot her sites with unspecified severity L98.499 Macular degeneration H35.30 Atrial fibrillation I48.91 Peripheral vascular disease I73.9 Chronic obstructive pulmonary disease, u nspecified J44.9 Acute kidney injury N17.9 Degenerative joint disease M19.90 Gastroesophageal reflux disease, unspeci fied whether esophagitis present K21.9 Mixed hyperlipidemia E78.2 Acute embolism and thrombosi s of unspecified deep veins of left lower extremity I82.402 Chronic kidney disease, stage 3 N18.30 Rheumatoid arthritis M06.9 Opioid dependence F11.20 Surgical History Surgery Date(Month/Year) Debridement of BKA wound cholecystectomy carpal tunnel surgery Knee replacement Left Below knee amputation Left appendectomy tonsillectomy Left leg bypass surgery IVC filter placement
== END 2024-12-18 12:41 | disposition home or self-care (01) ==
LOC: HO.HSM 11:32
PROVIDERS: PCP Family Medicine; Referring Provider Family Medicine; Visit Provider Psychiatry & Neurology Neurology
DX: R26.89 Other abnormalities of gait and mobility (principal); G62.9 Polyneuropathy, unspecified; G20.A1 Parkinson's disease without dyskinesia, without mention of fluctuations; M19.90 Unspecified osteoarthritis, unspecified site
CPT/HCPCS: 99214

== ENCOUNTER → 2024-12-18 11:32 | Outpatient (BNVA) | payer MEDICARE, SELFPAY | PROVIDERS: PCP Family Medicine; Referring Provider Family Medicine; Visit Provider Psychiatry & Neurology Neurology | DX: R26.89 Other abnormalities of gait and mobility (principal); G62.9 Polyneuropathy, unspecified; G20.A1 Parkinson's disease without dyskinesia, without mention of fluctuations; M19.90 Unspecified osteoarthritis, unspecified site | CPT/HCPCS: 99212 ==

== ENCOUNTER 2024-12-27 13:57 | Outpatient (REF) | payer MEDICARE, SELFPAY ==
--- OUTSIDE RECORDS SUMMARY | 2024-12-27 14:49 | XMS_ITS | Encounter Summary ---
Author Organization Located Within [facility] Address [address] [place] [address] [place] [address] Phone Care Team Providers Care Euclid Operator Name Role Phone Snow Cueto MD Primary Care Provider [phone] Zenon Bruce MD Unavailable [email or web address] Chyna James MD Unavailable Encounter Details Date Type Department Care Team (Late st Contact Info) Description 06/04/2021 Procedure Pass OR Admitting Dept - Virtual Department [address] [place] [address] Social History Tobacco Use Types Packs/Day Years [...] Care Team (Late st Contact Info) Description 01/02/2025 1:00 PM EDT Office Visit [facility] [address] [place] [address] 3rd Floor, [address] [place] [address] Echo Mckeon DNP [address] [place] [address], [address] [place] [address] 01/03/2025 12:30 AM EDT Home [facility] Visit [facility] [address] [place] [phone] Monae Orr RN [address] [place] [address] carlso 01/05/2025 Home Care Visit [facility] [address] [place] [phone] Monae Orr RN [address] [place] [phone] carlos 01/10/2025 12:30 AM EDT Home Care Visit [facility] [address] [place] [phone] Monae Orr RN [address] [place] [phone] carlos 01/12/2025 Appointment [facility] [address] [place] [phone] Monae Orr RN [address] [place] [address] carlos 03/01/2025 4:00 PM EDT Office Visit [facility] Rheumatology [address] [place] [address] Chyna James MD [address] [place] [address] [address] [place] [address] [email or web address] documented as of this encounter Visit [...] documented as of this encounter Care Teams Euclid Operator Relationship Specialty Start Date End Date Snow Cueto MD [address] [place] [phone] [email or web address] PCP - General 02/18/17 Zenon Bruce MD [email or web address] Historical LMR Provider 02/18/17 Chyna James MD [address] [place] [phone] [email or web address] Historical LMR Provider 02/18/17 documented as of this encounter Additional Source Comments The information contained in this document represents components of the legal health record. It is not the complete legal health record.Loc[facility]
--- OUTSIDE RECORDS SUMMARY | 2024-12-27 14:49 | XMS_ITS | Encounter Summary ---
Author Organization [facility] Address [address] [facility] [address] [place] [address] Phone Care Team Providers Care Flexible Babysitter Name Role Phone Snow Cueto MD Primary Care Provider [phone] Zenon Bruce MD Unavailable [email or web address] Chyna James MD Unavailable [phone] Encounter Details Date Type Department Care Team (Late st Contact Info) Description 06/06/2021 Procedure Pass Non-Invasive Cardiology [address] [place], [place] [phone] Social History Tobacco Use Types Packs/Day Years [...] Description 01/02/2025 1:00 PM EDT Office Visit [facility] [address] [facility] 3rd Floor, [address] [place], [place] [phone] Echo Mckeon DNP [address] [facility], [address] [place] [phone] 01/03/2025 12:30 AM EDT Home Care Visit [facility] [address] [place] [phone] Monae Orr, JUVE [address] [place] [address] carlos 01/05/2025 Home Care Visit [facility] [address] [place] [phone] Monae Orr, JUVE [address] [place] [phone] carlos 01/10/2025 12:30 AM EDT Home Care Visit [facility] [address] [place] [phone] Monae Orr RN [address] [place] [phone] carlos 01/12/2025 Appointment [facility] [address] [place] [phone] Monae Orr RN [address] [place] [address] carlos 03/01/2025 4:00 PM EDT Office Visit [facility] Rheumatology [address] [place] [address] Chyna James MD [address] [facility], [address] [place] [address] [email or web address] documented as of this encounter Visit [...] documented as of this encounter Care Teams Flexible Babysitter Relationship Specialty Start Date End Date Snow Cueto MD [address] [place] [phone] [email or web address] PCP - General 02/18/17 Zenon Bruce MD [email or web address] Historical LMR Provider 02/18/17 Chyna James MD [address] [place] [address] [address] [place] [address] [email or web address] Historical LMR Provider 02/18/17 documented as of this encounter Additional Source Comments The information contained in this document represents components of the legal health record. It is not the complete legal health record.[facility]
--- OUTSIDE RECORDS SUMMARY | 2024-12-27 14:49 | XMS_ITS | Encounter Summary ---
Author Organization [facility] Address [address] [facility] [address] [place] [address] Phone Care Team Providers Care Philatelic Consultant Name Role Phone Snow Cueto MD Primary Care Provider [phone] Snow Cueto MD Unavailable [phone] Zenon Bruce MD Unavailable [email or web address] Chyna James MD Unavailable [phone] Encounter Details Date Type Department Care Team (Late st Contact Info) Description 03/01/2019 Ancillary Orders [facility] Orthopedics & Sports Medicine [address] [place] [phone] Albert Bailey PA-C [address] [place] [address] Orthopedics & Sports Medicine, [facility]. 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 Alcohol Use Standard Drinks/Week Comments Yes 0 (1 standard drink = 0.6 oz pur e alcohol) ON OCCASION Sex and Gender Information Value Date Recorded Sex Assigned at Male 02/26/2019 7:27 PM EDT Legal Sex Male 10:10 PM EDT Gender Identity Male 02/26/2019 7:27 PM EDT Sexual Orientation Don't know 02/28/2024 5: 32 PM EDT documented as of this encounter Plan of Treatment Upcoming Encounters Date Type Department Care Team (Late st Contact Info) Description 01/02/2025 1:00 PM EDT Office Visit [facility] [address] 3rd Floor, [address] [place] [address] Echo Mckeon DNP [address] [facility], [address] [address] 01/03/2025 12:30 AM EDT Home Care Visit [facility] [address] [place] [phone] Monae Orr RN [address] [place] [phone] carlos 01/05/2025 Home Care Visit [facility] [address] [place] [phone] Monae Orr RN [address] [place] [phone] carlos 01/10/2025 12:30 AM EDT Home Care Visit [facility] [address] [place] [phone] Monae Orr RN [address] [place] [phone] carlos 01/12/2025 Appointment [facility] [address] [place] [phone] Monae Orr RN [address] [place] [phone] carlos 03/01/2025 4:00 PM EDT Office Visit [facility] Rheumatology [address] [place] [address] Chyna James MD [address] [facility], [address] [place] [address] [email or web address] documented as of this encounter Results * XR ELBOW 3 OR MORE VIEWS (RIGHT) (03/01/2019 11:27 AM EDT) Narrative SYSTEMGENERATED, DOCUMENTATION - 03/01/2019 11:27 AM EDT This image report has been auto-finalized and has not been read by a Radiologist. Interpretation has been included in the provider encounter note for this date of service. us Albert Bailey PA-C IMG XR UPPER EXTREMITY Final Result documented in this encounter Visit Diagnoses Diagnosis Right elbow pain Pain in joint, upper arm Right elbow pain Pain in joint, upper arm documented in this encounter Additional Health Concerns Infection Onset Date Last Indicated Resolved Time CoV-Risk Comment:Neg [email or web address] 04/14/2021 04/16/2021 04/16/2021 1:[address] CoV-Risk 10/10/2021 10/10/2021 10/21/2021 1:22 AM EDT CoV-Risk 11/26/2022 11/26/2022 12/07/2022 1:21 AM EDT CoV-Exposed Comment:Positive COVID-19 02/28/2024 02/28/2024 02/28/2024 7:2 9 PM EDT CoV-Risk 02/28/2024 02/28/2024 02/28/2024 7:29 PM EDT COVID-19 02/28/2024 02/28/2024 03/20/2024 1:24 AM EST documented as of this encounter Care Teams Philatelic Consultant Relationship Specialty Start Date End Date Snow Cueto MD [address] [place] [phone] [email or web address] - General 02/18/17 Snow Cueto MD [address] [place] [address] Historical LMR Provider 02/18/17 2 Zenon Bruce MD [email or web address] Historical LMR Provider 02/18/17 Chyna James MD [address] [place] [address], [facility] [address] [phone] [email or web address] Historical LMR Provider 02/18/17 documented as of this encounter Additional Source Comments The information contained in this document represents components of the legal health record. It is not the complete legal health record.[facility]
--- OUTSIDE RECORDS SUMMARY | 2024-12-27 14:49 | XMS_ITS | Encounter Summary ---
Author Organization [facility] Address [address] [employer] [facility] [address] [place] [address] Phone Care Team Providers Care Creel Selector Name Role Phone Snow Cueto MD Primary Care Provider [phone] Snow Cueto MD Unavailable [phone] Zenon Bruce MD Unavailable [email or web address] Chyna James MD Unavailable [phone] Encounter Details Date Type Department Care Team (Late st Contact Info) Description 04/14/2021 Procedure Pass [facility], Ct Scan - [address] [address] Social History Tobacco Use Types Packs/Day Years [...] PM EDT documented as of this encounter Functional Status * Calculated C-SSRS Risk Score (Lifetime/Recent) Answer Date of Assessment Author No Risk Indicated 04/14/2021 5:24 PM Poly Napoles RN * Combs Suicide Severity Rating Scale (Screener/Recent Self-Report) Question Answer Date of Assessment Author 1. Wish to be (Past 1 Month) No 021 5:24 PM Poly Napoles, JUVE 2. Non-Specific Active Suici jordin Thoughts (Past 1 Month) No 04/14/2021 5:24 PM Poly Napoles , RN 6. Suicidal Behavior (Lifetime) No 5:24 PM Poly Napoles, JUVE documented as of this encounter Plan of Treatment Upcoming Encounters Date Type Department Care Team (Late st Contact Info) Description 01/02/2025 1:00 PM EDT Office Visit [facility] 22 [facility] 3rd Floor, [address] [place] [address] [phone] Echo Mckeon DNP [address] [address] 01/03/2025 12:30 AM EDT Home Care Visit [facility] [address] [place] [phone] Monae Orr RN [address] [place] [address] carlos 01/05/2025 Home Care Visit [facility] [address] [place] [phone] Monae Orr RN [address] [place] [address] carlos 01/10/2025 12:30 AM EDT Home Care Visit [facility] [address] [place] [phone] Monae Orr, JUVE [address] [place] [address] carlos 01/12/2025 Appointment [facility] [address] [place] [phone] Monae Orr, RN [address] [place] [address] [email or web address] 03/01/2025 4:00 PM EDT Office Visit [facility] Rheumatology [address] [place] [address] Chyna James MD 22 [facility], [address] [place] [address] [email or web address] documented as of this encounter Visit [...] documented as of this encounter Care Teams Creel Selector Relationship Specialty Start Date End Date Snow Cueto MD [address] [place] [address] [email or web address] PCP - General 02/18/17 Snow Cueto MD [address] [place] [address] [email or web address] Historical LMR Provider 02/18/17 2 Zenon Bruce MD [email or web address] Historical LMR Provider 02/18/17 Chyna James MD [address] [place] [address], [place] [address] [email or web address] Historical LMR Provider 02/18/17 documented as of this encounter Additional Source Comments The information contained in this document represents components of the legal health record. It is not the complete legal health record.[facility]
--- OUTSIDE RECORDS SUMMARY | 2024-12-27 14:49 | XMS_ITS | Encounter Summary ---
Author Organization [facility] Address [address] [facility] [address] [place] [address] Phone Care Team Providers Care Physician Liaison Name Role Phone Snow Cueto MD Primary Care Provider Snow Cueto MD Unavailable [phone] Zenon Bruce MD Unavailable [email or web address] Chyna James MD Unavailable [phone] Encounter Details Date Type Department Care Team (Late st Contact Info) Description 06/06/2020 Procedure Pass [facility] Cardiovascular And Interventional Radiology [address] [place] [address] Social History Tobacco Use Types Packs/Day Years [...] Description 01/02/2025 1:00 PM EDT Office Visit [facility] 22 [facility] 3rd Floor, [address] [place] [address] Echo Mckeon DNP 22 [facility], [address] [place] [address] 01/03/2025 12:30 AM EDT Home Care Visit [facility] [address] [place] [phone] Monae Orr, JUVE [address] [place] [address] carlos 01/05/2025 Home Care Visit [facility] [address] [place] [phone] Monae Orr, JUVE [address] [place] [address] carlos 01/10/2025 12:30 AM EDT Home Care Visit [facility] [address] [place] [phone] Monae Orr RN [address] [place] [address] [email or web address] 01/12/2025 Appointment [facility] [address] [place] [phone] Monae Orr, JUVE [address] [place] [address] carlos 03/01/2025 4:00 PM EDT Office Visit [facility] Rheumatology [address] [place] [address] Chyna James MD 22 [facility], [facility] [address] [place] [address] [email or web address] documented as of this encounter Visit [...] documented as of this encounter Care Teams Physician Liaison Relationship Specialty Start Date End Date Snow Cueto MD [address] [place] [address] [email or web address] PCP - General 02/18/17 Snow Cueto MD [address] [place] [address] [email or web address] Historical LMR Provider 02/18/17 2 Zenon Bruce MD [email or web address] Historical LMR Provider 02/18/17 Chyna James MD [address] [place] [address], [facility] [address] [place] [address] [email or web address] Historical LMR Provider 02/18/17 documented as of this encounter Additional Source Comments The information contained in this document represents components of the legal health record. It is not the complete legal health record.[facility]
--- OUTSIDE RECORDS SUMMARY | 2024-12-27 14:49 | XMS_ITS | Patient Health Record ---
Author Organization [facility] Address 7 [facility] [address] [place] [address] Care Team Providers Care Student Accounts Coordinator Name Role Phone Liane Miranda Unavailable [phone] AngelicaVaughn riveral Unavailable [phone] Figueroa Gracia Unavailable [phone] Allergies Allergen (clinical drug ingredient) Drug/Non Drug [...] MG 2 tablets Orally 3x daily Ac batsheva Landrya [id number] UNIT/GM 1 application Ex ternally Twice a [...] W/U Status Risk Notes Problem Essential hypertension (98308504) Essential (primary) hypertension (I10) Active confirmed Problem Chronic obstructive pulmonary disease (49946858) Chronic obstructive pulmonary disease, unspecified (J44.9) Active confirmed Problem Chronic ulcer of foot (698984616) Non-pressure chronic ulcer of right heel and midfoot with fat layer exposed (L97.412) Active confirmed Problem Chronic ulcer of right foot (disorder) (01478606387177471) 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) Active confirmed Problem Chronic ulcer of skin (86811220) Non-pressure chronic ulcer of skin of other sites with unspecified severity (L98.499) Active confirmed Problem 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) Active confirmed Problem Peripheral vascular disease (301864557) Peripheral vascular disease (I73.9) Active confirmed Problem Gastroesophageal reflux disease (064105243) Gastroesophageal reflux disease, unspecified whether esophagitis present (K21.9) Active confirmed Problem Neuropathy (656058306) Neuropathy (G62.9) Active confirmed Problem Chronic kidney disease stage 3 (disorder) (289998254) Chronic kidney disease, stage 3 (N18.30) Active confirmed Problem Atrial fibrillation (28399535) Atrial fibrillation (I48.91) Active confirmed Problem Degenerative joint disease (190760468) Degenerative joint disease (M19.90) Active confirmed Problem Abdominal aortic aneurysm (388465562) Abdominal aortic aneurysm (I71.40) Active confirmed Problem Age-related macular degeneration (disorder) (843886092) Macular degeneration (H35.30) Active confirmed Vital Signs [...] 12/18/2024 Encounters Encounter Location Date Provider Diagnosis [address] [address] 04/03/2024 Liane Miranda Peripheral vascular disease I73.9 ; Non-pressure chronic ulcer of other part of right foot with necrosis of muscle L97.513 ; Non-pressure chronic ulcer of right heel and midfoot with fat layer exposed L97.412 and Neuropathy G62.[address] [address] 04/10/2024 Liane Miranda Peripheral vascular disease I73.9 ; Non-pressure chronic ulcer of other part of right foot with necrosis of muscle L97.513 ; Non-pressure chronic ulcer of right heel and midfoot with fat layer exposed L97.412 and Neuropathy G62.[address] [address] 04/17/2024 Liane Miranda Peripheral vascular disease I73.9 ; Non-pressure chronic ulcer of other part of right foot with necrosis of muscle L97.513 ; Non-pressure chronic ulcer of right heel and midfoot with fat layer exposed L97.412 ; Neuropathy G62.9 and Cellulitis of right leg L03.[address] [address] 04/24/2024 Liane Miranda Peripheral vascular disease I73.9 ; Non-pressure chronic ulcer of other part of right foot with necrosis of muscle L97.513 ; Non-pressure chronic ulcer of right heel and midfoot with fat layer exposed L97.412 ; Neuropathy G62.9 and Cellulitis of right leg L03.[address] [address] 05/08/2024 Liane Miranda Peripheral vascular disease I73.9 ; Non-pressure chronic ulcer of other part of right foot with necrosis of muscle L97.513 ; Non-pressure chronic ulcer of right heel and midfoot with fat layer exposed L97.412 and Neuropathy G62.[address] [address] 05/15/2024 Liane Miradna Peripheral vascular disease I73.9 ; Non-pressure chronic ulcer of other part of right foot with necrosis of muscle L97.513 ; Non-pressure chronic ulcer of right heel and midfoot with fat layer exposed L97.412 and Neuropathy G62.[address] [address] 05/29/2024 Liaen Miranda Peripheral vascular disease I73.9 ; Non-pressure chronic ulcer of other part of right foot with necrosis of muscle L97.513 ; Non-pressure chronic ulcer of right heel and midfoot with fat layer exposed L97.412 and Neuropathy G62.[address] [address] 06/26/2024 Liane Miranda Peripheral vascular disease I73.9 ; Non-pressure chronic ulcer of other part of right foot with necrosis of muscle L97.513 ; Non-pressure chronic ulcer of right heel and midfoot with fat layer exposed L97.412 and Neuropathy G62.[address] [address] 07/10/2024 Liane Miranda Peripheral vascular disease I73.9 ; Non-pressure chronic ulcer of other part of right foot with necrosis of muscle L97.513 and Non-pressure chronic ulcer of right heel and midfoot with fat layer exposed L97.[address] [address] 07/24/2024 Figueroa Gracia Peripheral vascular disease I73.9 ; Non-pressure chronic ulcer of other part of right foot with necrosis of muscle L97.513 and Non-pressure chronic ulcer of right heel and midfoot with fat layer exposed L97.[address] [address] 11/13/2024 Liane Miranda Peripheral vascular disease I73.9 and Non-pressure chronic ulcer of right heel and midfoot with fat layer exposed L97.[address] [address] 11/20/2024 Lianemoose Miranda Peripheral vascular disease I73.9 and Non-pressure chronic ulcer of right heel and midfoot with fat layer exposed L97.[address] [address] 12/04/2024 Lianemoose Miranda Peripheral vascular disease I73.9 and Non-pressure chronic ulcer of right heel and midfoot with fat layer exposed L97.[address] [address] 12/18/2024 Figueroa Gracia Peripheral vascular disease I73.9 and Non-pressure chronic ulcer of right heel and midfoot with fat layer exposed L97.[address] [address] 03/23/2024 Liane Miranda [facility] [address] [address] 11/14/2024 Liane Miranda [facility] [address] [address] 11/14/2024 Liane Miranda [address] [address] 11/14/2024 Liane Miranda [facility] [address] [address] 11/17/2024 Liane Miranda Assessments Encounter Date Diagnosis [...] the heel. His will call Leon the Bottle Sorter to talk with him about options. He [...] the heel. His will call Leon the Bottle Sorter to talk with him about options. He [...] Doxycycline and I reviewed potential adverse effects. [place] back to Dr. Bella his Bottom Liner as he may need 5th toe ampuation. [...] questions to their satisfaction. I, Liane Miranda PILLOW AGENT-C, examined, evaluated, and treated the patient. Dr. [...] all questions to their satisfaction. I, Liane RONQUILLO-C, examined, evaluated, and treated the patient. Dr. [...] all questions to their satisfaction. I, Liane RONQUILLO-Daisy, examined, evaluated, and treated the patient. Dr. [...] answered all questions to their satisfaction. Liane Rogers-Daisy, examined, evaluated, and treated the patient. Dr. [...] skin. 2 week f/u. sooner if issues. Liane Rogers-Daisy, examined, evaluated, and treated the patient. Dr. [...] covered with a dry dressing. I, Liane RONQUILLO-C, examined, evaluated , and [...] to help cushion these areas. I, Liane Miranda PILLOW AGENT-C, examined, evaluated , and treated the patient. Dr. Paul Mello was available for any questions or concerns that I may have had. 12/18/2024 Peripheral vascular disease (ICD-10 - I73.9) 12/18/2024 Non-pressure chronic ulcer of right heel [...] of right leg (ICD-10 - L03.115) 06/12/2024 Jg Smith MD confirm that Liane Miranda, YG-BC, CWS understands and adheres to the guidelines [...] and documenting the findings in the note. I, Figueroa Gracia, MSN, INDUSTRIAL ENGINEER, PILLOW AGENT-C, examined, evaluated , and treated the patient. Dr. Paul Mello was available for any questions or concerns that I may have had. Jg Rogers MD confirm that Figueroa Gracia MSN, INDUSTRIAL ENGINEER, PILLOW AGENT-C understands and adheres to the guidelines of [...] and no foul odor. WOUND NOTED TO: right heel wound: Today the wound is notedas stable with based on assessment and measurements from last visit. The wound bed is noted with nonadherent thin yellow slough, granular tissue. The periwound is noted with dry skin and some maceration The wound is noted oval in shape. I reviewed debridement and rational, and they were agreeable to the procedure. I then procedure with debridement to removed devitalized tissue as outline above. They tolerated the procedure well. I cleansed there wound with Dakin's, then rinsed with saline, thereafter nursing applied aquacel to the wound bed, zinc to the periwound, followed by a dry-clean dressing. Continue with the above dressing orders continue with your scheduled FU wound care appointment and call with any questions or concerns I, Figueroa Gracia, MSN, INDUSTRIAL ENGINEER, PILLOW AGENT-C, examined, evaluated , and treated the patient. Dr. Paul Mello was available for any questions or concerns that I may have had. A total of 30 minutes was spent on this visit (face to face and non face to face) documenting HPI and performing physical exam, reviewing previous notes and testing, reviewing and adjusting treatment plan, counseling the patient on treatment choices, disease process, expected outcomes, and documenting the findings in the note. I, Jg Mello MD confirm that Figueroa Gracia, MSN, INDUSTRIAL ENGINEER, PILLOW AGENT-C understands and adheres to the guidelines of the established clinical protocols in the office. I confirm the above care provided was rendered under my general supervision as initially planned and subsequently discussed and supervised by me. Plan Of Treatment Next Appt Details Provider Name:Jg Mello, 12/27/2024 10:30:00 AM, [address] [place], [address], Provider Name:Liane arndt, 01/08/2025 11:00:00 AM, [address] [place], [address], Insurance Providers Payer Name Payer Address Payer Phone Subscriber Number Group Number Insured Name Patient Relationship to Insured Coverage Start Date Coverage End Date [facility] [address] [place], [place] [id number] [phone] [id number] [place] Nayak Self - patient is [...]
--- OUTSIDE RECORDS SUMMARY | 2024-12-27 14:49 | XMS_ITS | Encounter Summary ---
Author Organization [facility] Address [address] [place] [address] [place] [address] Phone Care Team Providers Care Director Of Vocational Training Name Role Phone Snow Cueto MD Primary Care Provider [phone] Zenon Bruce MD Unavailable [email or web address] Chyna James MD Unavailable [phone] Encounter Details Date Type Department Care Team (Late st Contact Info) Description 07/30/2021 Transcribe Orders Virtual Department [address] [place] [address] Humphrey Miranda NP [address] [place] [address] 2_[place] [address] [email or web address] Type 2 diabetes mellitus with foot ulcer, unspecified 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 (Primary Dx); Pain of foot, unspecified laterality Social History Tobacco Use Types Packs/Day Years [...] Description 01/02/2025 1:00 PM EDT Office Visit [facility] [address]rd Floor, [address] [place] [address] Echo Mckeon DNP 22 [facility], [address] [address] 01/03/2025 12:30 AM EDT Home Care Visit [facility] [address] [place] [phone] Monae Orr RN [address] [place] [address] carlos 01/05/2025 Home Care Visit [facility] [address] [place] [phone] Monea Orr RN [address] [place] [phone] carlos 01/10/2025 12:30 AM EDT Home Care Visit [facility] [address] [place] [phone] Monae Orr RN [address] [place] [address] carlos 01/12/2025 Appointment [facility] [address] [place] [phone] Monae Orr RN [address] [place] [address] carlos 03/01/2025 4:00 PM EDT Office Visit [facility] Rheumatology [address] [place] [address] Chyna James MD 22 [facility], [address] [place] [address] [email or web address] documented as of this encounter Results * XR FOOT 3 OR MORE VIEWS (RIGHT) (07/30/2021 4:13 PM EDT) Anatomical Region Laterality Modality Foot Right Computed Radiogr aphy 07/31/2021 9:25 AM EDT Impressions 07/31/2021 9:29 AM EDT Progressive soft tissue swelling with apparent plantar-lateral midfoot ulcer without specific radiographic findings of acute osteomyelitis or other significant change since 04/14/2021. POS - [id number] Narrative 07/31/2021 9:29 AM EDT COMPARISON: 04/14/2021 FINDINGS: Frontal, lateral, and oblique views were obtained. There is diffuse soft tissue swelling of the midfoot and forefoot which seems to represent a change from the previous examination. There appears be a chronic and possibly progressive soft tissue defect along the plantar lateral aspect of the foot near the fifth metatarsal base but no zone of cortical destruction or periosteal elevation are noted to have developed. Resorptive changes along the distal margins of the third and fourth proximal phalanges again noted as are stable postoperative and degenerative changes. Procedure Note Figueroa Patterson MD - 07/31/2021 COMPARISON: 04/14/2021 FINDINGS: Frontal, lateral, and oblique views were obtained. There is diffuse softtissue swelling of the midfoot and forefoot which seems to represent achange from the previous examination. There appears be a chronic andpossibly progressive soft tissue defect along the plantar lateral aspectof the foot near the fifth metatarsal base but no zone of corticaldestruction or periosteal elevation are noted to have developed.Resorptive changes along the distal margins of the third and fourthproximal phalanges again noted as are stable postoperative anddegenerative changes. IMPRESSION: Progressive soft tissue swelling with apparent plantar-lateral midfootulcer without specific radiographic findings of acute osteomyelitis orother significant change since 04/14/2021. 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- Primary Pain of foot, unspecified laterality Type 2 diabetes mellitus with foot ulcer, unspecified whether [facility] insulin use Pain of foot, unspecified laterality documented in this encounter Additional Health Concerns Infection Onset Date Last Indicated Resolved Time CoV-Risk 10/10/2021 10/10/2021 10/21/2021 1:22 AM EDT CoV-Risk 11/26/2022 11/26/2022 12/07/2022 1:21 AM EDT CoV-Exposed Comment:Positive COVID-19 02/28/2024 02/28/2024 02/28/2024 7:2 9 PM EDT CoV-Risk 02/28/2024 02/28/2024 02/28/2024 7:29 PM EDT COVID-19 02/28/2024 02/28/2024 03/20/2024 1:24 AM EST documented as of this encounter Care Teams Director Of Vocational Training Relationship Specialty Start Date End Date nSow Cueto MD [address] [place] [phone] [email or web address] PCP - General 02/18/17 Zenon Bruce MD [email or web address] Historical LMR Provider 02/18/17 Chyna James MD [address] [place] [address] [address] [place] [address] [email or web address] Historical LMR Provider 02/18/17 documented as of this encounter Additional Source Comments The information contained in this document represents components of the legal health record. It is not the complete legal health record.[facility]
--- OUTSIDE RECORDS SUMMARY | 2024-12-27 14:50 | XMS_ITS | Patient Health Record ---
Author Organization [facility] Address [address] [place] [address] Care Team Providers Care Cement Car Dumper Name Role Phone Snow Cueto Primary Care Provider Unavailab Jeannette Espinal Unavailable [phone] Nasim Bella Unavailable [phone] Allergies Allergen (clinical drug ingredient) Drug/Non Drug Allergy documented on EMR Reaction Allergy Type Onset Date Status Bee Sting Unknown Allergy Active Results Component Value Reference Range Notes HEMOGLOBIN A1C (GLYCOHEMOGLO BIN) Reviewed date:10/25/2024 03:30:27 [...] Ordered Date Performed Result Body Sit e 23319-RTCRSDC NAIL, 1-5 10/25/2024 N/A Encounters Encounter Location Date Provider Diagnosis [address] [address] 12/30/2023 Nasim Bella Other hammer toe(s) (acquired), right foot M20.41 ; Pain in right toe(s) M79.674 ; Type 2 diabetes mellitus with diabetic polyneuropathy E11.42 and Tinea unguium B35.[address] [address] 10/25/2024 Jeannette Vee Type 2 diabetes mellitus with diabetic polyneuropathy E11.42 ; Tinea unguium B35.1 ; Ischemic ulcer of right heel, limited to breakdown of skin L97.411 and Deep tissue injury T14.8XXA [address] [address] 10/25/2024 Jeannette Vee Assessments Encounter Date Diagnosis [...] X ray : Foot, right 3V 02/16/2011 06935-MVJRUJM NAIL, -01/22/2011 24536-WRAVHCH NAIL, -09/03/2011 95384-WLJQKHI NAIL, -04/13/2011 88732-XDMBXHS NAIL, -06/29/2011 89614-NFEHOVS NAIL, -11/12/2011 54397-KTTZIEQ NAIL, -12/27/2014 58381-IUDZJRU NAIL, -07/31/2015 24272-WMJDCSX NAIL, -01/27/2012 03133-HEHIPQE NAIL, -04/13/2012 57574-OSQZMPU NAIL, -07/27/2012 37777-PDFCSGN NAIL, -12/07/2012 58835-RTVQMFI NAIL, -04/05/2013 38992-XIWQCCU NAIL, -08/07/2013 15960-ICQUUVK NAIL, -12/11/2013 82422-FUCTKUR NAIL, -04/12/2014 20682-PVARGFY NAIL, -09/29/2017 41609-EZKFGNR NAIL, -12/23/2017 50916-KJWKWEM NAIL, 1-5 03/31/2018 62798-PLHVXFM NAIL, 1-5 10/10/2015 43904-UFPLUWF NAIL, 1-5 12/19/2015 57564-ZWAEWKP NAIL, 1-5 06/15/2016 71202-OCAJJSP NAIL, 1-5 03/16/2016 60221-AWCRDIC NAIL, 1-5 12/16/2016 51300-ZMNPLTC NAIL, 1-5 03/10/2017 70313-JHSKZQZ NAIL, 1-5 07/05/2017 02051-KYEPBOJ NAIL, 1-5 10/25/2024 88544-Ttttoxdr Plate 04/12/2014 07820-Yvvwokzm Plate 12/27/2014 18159-Ziqjuzwe Plate 04/13/2011 22139- Debride <25 sq cm 10/12/2011 93785- Debride <25 sq cm 10/28/2011 54667- Debride <25 sq cm 09/03/2011 52092- Debride <25 sq cm 03/11/2015 89552- Debride <25 sq cm 12/27/2014 67070- Debride <25 sq cm 01/31/2015 49933- Debride <25 sq cm 05/17/2014 82244- Debride <25 sq cm 04/12/2014 90483- Debride <25 sq cm 03/20/2021 98181-HGKIOAE SKIN/TISSUE 07/31/2021 05701-VHWXARH SKIN/TISSUE 07/01/2020 75541-MWHBOXT SKIN/TISSUE 04/17/2020 42007-NBNVPTV SKIN/TISSUE 01/31/2015 98637-EHAGCIG SKIN/TISSUE 02/21/2015 70677-FBOJDRA SKIN/TISSUE 03/11/2015 10127-POATPFN SKIN/TISSUE 03/21/2015 60060-SOBYRRW SKIN/TISSUE 02/25/2015 62067-XRQHGGB SKIN/TISSUE 10/05/2011 30818-KCGGYIN SKIN/TISSUE 11/12/2011 49402-ZXMQBPN SKIN/TISSUE 01/22/2011 17074-PKJKYPI SKIN/TISSUE 02/16/2011 16582-HXTD SKIN LESIONS, OVER 4 07/31/19 16 02840-TTKO SKIN LESIONS, OVER 4 12/28/19 15 79156-CUQF SKIN LESIONS, OVER 4 12/12/19 14 97379-ZTYQ SKIN LESIONS, OVER 4 08/08/19 14 28476-PEVH SKIN LESIONS, OVER 4 03/31/20 18 56021-NIXK SKIN LESIONS, OVER 4 12/24/19 18 73231-UVPR SKIN LESIONS, OVER 4 07/15/19 19 90885-ATQY SKIN LESIONS, OVER 4 10/19/19 19 16057-APIR SKIN LESIONS, OVER 4 01/17/20 19 04630-VAJH SKIN LESIONS, OVER 4 05/24/19 20 12810-LKUN SKIN LESIONS, OVER 4 08/31/19 20 95281-QCSK SKIN LESIONS, OVER 4 12/29/19 20 09386-IURB SKIN LESIONS, OVER 4 04/17/20 20 98283-YWRF SKIN LESIONS, OVER 4 03/10/20 17 19755-KNWE SKIN LESIONS, OVER 4 03/16/20 16 70196-MJNM SKIN LESIONS, OVER 4 06/15/19 17 87643-YCHF SKIN LESIONS, OVER 4 09/15/19 17 89726-VADG SKIN LESIONS, OVER 4 12/17/19 17 96351-VGMP SKIN LESIONS, OVER 4 12/19/19 16 50776-ENXQ SKIN LESIONS, OVER 4 10/10/19 16 05521-MDDU SKIN LESIONS, OVER 4 07/06/19 18 01698-MMTC SKIN LESIONS, OVER 4 03/20/20 21 72246-AAXO SKIN LESIONS, 2 TO 4 08/01/19 22 62423-AAMT SKIN LESIONS, 2 TO 4 09/30/19 18 07320-RYBY SKIN LESIONS, 2 TO 4 04/05/20 13 40337-HMNC SKIN LESIONS, 2 TO 4 12/08/19 13 28681-PCQJ SKIN LESIONS, 2 TO 4 07/28/19 13 77016-LWFA SKIN LESIONS, 2 TO 4 04/13/20 12 16398-YOJX SKIN LESIONS, 2 TO 4 02/22/20 15 33523-MPZW SKIN LESIONS, 2 TO 4 01/23/20 11 37993-DZWC SKIN LESIONS, 2 TO 4 04/13/20 11 61269-ULIV SKIN LESIONS, 2 TO 4 06/29/19 12 69649-WIZE SKIN LESIONS, 2 TO 4 01/27/20 12 89374-EGCY SKIN LESIONS, 2 TO 4 09/03/19 12 12698-IZTKKFEN OF HEMATOMA/FLUID 011 75343-BWLIIDQO OF HEMATOMA/FLUID 018 59726-NFNBKBOP OF HEMATOMA/FLUID 018 43826-DUSGKUJS OF HEMATOMA/FLUID 020 29540-WZIFEGFZ OF HEMATOMA/FLUID 021 08943- Short Leg Cast 02/23/2011 35792- Unna Boot 03/05/2011 Next Appt Details Provider Name:Jeannette Garg johnny, 01/29/2025 02:30:00 PM, [address] [place], [address], Insurance Providers Payer Name Payer Address Payer Phone Subscriber Number Group Number Insured Name Patient Relationship to Insured Coverage Start Date Coverage End Date [employer] [place] Medicare Advantage One [facility] [address] [place] [address] [phone] [id number] Cuauhtemoc Nayak Self - patient is the [...] months, a few visits to ER 03/2022 [facility] Wound care -everyother day [facility] wound clinic - was admit KERVIN jensen celulitis - removed LT ft due to infection 04/2017 Admitted to [facility] and transferred to [facility], x 4 days, fall 03/2014
--- OUTSIDE RECORDS SUMMARY | 2024-12-27 14:50 | XMS_ITS | Encounter Summary ---
Author Organization [facility] Address [address] [facility] [address] [place] [address] Phone Care Team Providers Care Line Server Name Role Phone Snow Cueto MD Primary Care Provider [phone] Zenon Bruce MD Unavailable [email or web address] Chyna James MD Unavailable [phone] Encounter Details Date Type Department Care Team (Late st Contact Info) Description 11/26/2022 Procedure Pass [facility], Ct Scan - [address] [address] Social History Tobacco Use Types Packs/Day Years Used Date Smoking Tobacco: Former Pipe Q uit: 06/16/2012 Smokeless Tobacco: Never 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 Not on mitra e 08/28/2022 Are you concerned about learning? Not on file 08/28/2022 No 08/28/2022 No 08/28/2022 Digital Access Answer Date Recorded No 09/25/2022 No 09/25/2022 Reliable internet access at home? Not on file 09/25/2022 Device with a working camera? Not on file Sex and Gender Information Value Date Recorded Sex Assigned at Male 02/26/2019 7:27 PM EDT Legal Sex Male 10:10 PM EDT Gender Identity Male 02/26/2019 7:27 PM EDT Sexual Orientation Don't know 02/28/2024 5: 32 PM EDT documented as of this encounter Plan of Treatment Upcoming Encounters Date Type Department Care Team (Late st Contact Info) Description 01/02/2025 1:00 PM EDT Office Visit [facility] [address] 3rd Floor, [address] [place] [address] Echo Mckeon DNP 22 [facility], [address] [place] [address] 01/03/2025 12:30 AM EDT Home Care Visit [facility] [address] [place] [phone] Monae Orr RN [address] [place] [address] carlos 01/05/2025 Home Care Visit [facility] [address] [place] [phone] Monae Orr RN [address] [place] [address] carlos 01/10/2025 12:30 AM EDT Home Care Visit [facility] [address] [place] [phone] Monae Orr, JUVE [address] [place] [address] carlos 01/12/2025 Appointment [facility] [address] [place] [phone] Monae Orr, JUVE [address] [place] [address] carlos 03/01/2025 4:00 PM EDT Office Visit [facility] Rheumatology [address] [place] [address] Chyna James MD [address] [place] [phone] [email or web address] documented as of this encounter Visit Diagnoses Not on filedocumented in this encounter Additional Health Concerns Infection Onset Date Last Indicated Resolved Time CoV-Risk 11/26/2022 11/26/2022 12/07/2022 1:21 AM EDT CoV-Exposed Comment:Positive COVID-19 02/28/2024 02/28/2024 02/28/2024 7:2 9 PM EDT CoV-Risk 02/28/2024 02/28/2024 02/28/2024 7:29 PM EDT COVID-19 02/28/2024 02/28/2024 03/20/2024 1:24 AM EST documented as of this encounter Care Teams Line Server Relationship Specialty Start Date End Date Snow Cueto MD [address] [place] [phone] [email or web address] PCP - General 02/18/17 Zenon Bruce MD [email or web address] Historical LMR Provider 02/18/17 Chyna James MD [address] [place] [address] [email or web address] Historical LMR Provider 02/18/17 documented as of this encounter Additional Source Comments The information contained in this document represents components of the legal health record. It is not the complete legal health record.[facility]
--- OUTSIDE RECORDS SUMMARY | 2024-12-27 14:50 | XMS_ITS | Encounter Summary ---
Author Organization [facility] Address [address] [place] [address] [place] [address] Phone Care Team Providers Care Qm Consultant Name Role Phone Snow Cueto MD Primary Care Provider [phone] Zenon Bruce MD Unavailable [email or web address] Chyna James MD Unavailable [phone] Reason for Referral * MRI/CAT Scan - Closed Specialty Diagnoses / Procedures Referred By Contac t Referred To Contact Radiology Diagnoses Disorientation, unspecified Procedures CT Head CHG CT SCAN,HEAD/BRAIN,W/O CONTRAST Ayah Wren NP [address] [place] [phone] Phone: tel: fax: Referral ID Status Reason Start Date Expiration Date Visits Re quested Visits Authorized [id number] Closed 02/02/2022 04/03/2022 1 1 Encounter Details Date Type Department Care Team (Late st Contact Info) Description 02/02/2022 Transcribe Orders Virtual Department [address] [place] [address] Ayah Rao NP [address] [place], [place] [phone] Disorientation, unspecified (Primary Dx) Social History Tobacco Use Types Packs/Day Years [...] Description 01/02/2025 1:00 PM EDT Office Visit [facility] [address] [facility] 3rd Floor, [address] [place] [address] Echo Mckeon DNP 22 [facility], [address] [address] [email or web address] 01/03/2025 12:30 AM EDT Home Care Visit [facility] [address] [place] [phone] Monae Orr RN [address] [place] [address] [email or web address] 01/05/2025 Home Care Visit [facility] [address] [place] [address] Monae Orr RN [address] [place] [address] [email or web address] 01/10/2025 12:30 AM EDT Home Care Visit [facility] [address] [place] [address] Monae Orr RN [address] [place] [address] [email or web address] 01/12/2025 Appointment [facility] [address] [place], [place] [phone] Monae Orr RN [address] [place] [address] carlos 03/01/2025 4:00 PM EDT Office Visit [facility] Rheumatology [address] [place] [address] Chyna James MD 22 [facility], [address] [place] [address] [email or web address] documented as of this encounter Results * CT HEAD WITHOUT CONTRAST (02/02/2022 5:11 PM EDT) Anatomical Region Laterality Modality Head Computed Tomogra phy 02/02/2022 6:30 PM EDT Impressions 02/02/2022 6:40 PM EDT Motion degraded study. Within this confine: 1.No acute intracranial findings. 2.Mild-moderate cerebral volume loss. 3.Mild chronic microvascular ischemic disease. Narrative 02/02/2022 6:[address] HEAD WITHOUT CONTRAST TECHNIQUE: Multidetector-row CT of the head was performed without intravenous contrast using tailored dose modulation techniques. Images were reconstructed in the axial, coronal, and sagittal planes. COMPARISON: 08/04/2015 FINDINGS: Patient motion artifact mildly degrades the study. Within this confine: Brain Parenchyma: No midline shift, mass effect, parenchymal hemorrhage, or evidence of acute territorial infarct. Mild bilateral periventricular white matter hypodensities are consistent with chronic microvascular ischemic disease. Atherosclerotic calcifications of the cavernous carotid arteries are seen. Ventricular System and Extra-Axial Spaces: Mild- moderate cerebral volume loss. No extra-axial fluid collections. Basal cisterns are patent. No hydrocephalus. Osseous and Extracranial Structures: Mild to moderate mucosal thickening of the right maxillary sinus and ethmoid air cells. The remaining visualized paranasal sinuses and mastoid air cells are clear. There are bilateral ocular lens implants. No orbital abnormality. Procedure Note Cony Lutz MD - 02/02/2022 CT HEAD WITHOUT CONTRAST TECHNIQUE: Multidetector-row CT of the head was performed withoutintravenous contrast using tailored dose modulation techniques. Imageswere reconstructed in the axial, coronal, and sagittal planes. COMPARISON: 08/04/2015 FINDINGS: Patient motion artifact mildly degrades the study. Within this confine: Brain Parenchyma: No midline shift, mass effect, parenchymal hemorrhage,or evidence of acute territorial infarct. Mild bilateral periventricularwhite matter hypodensities are consistent with chronic microvascularischemic disease. Atherosclerotic calcifications of the cavernous carotid arteries areseen. Ventricular System and Extra-Axial Spaces: Mild- moderate cerebral volumeloss. No extra-axial fluid collections. Basal cisterns are patent. Nohydrocephalus. Osseous and Extracranial Structures: Mild to moderate mucosal thickeningof the right maxillary sinus and ethmoid air cells. The remainingvisualized paranasal sinuses and mastoid air cells are clear. There arebilateral ocular lens implants. No orbital abnormality. IMPRESSION: Motion degraded study. Within this confine: 1.No acute intracranial findings. 2.Mild-moderate cerebral volume loss. 3.Mild chronic microvascular ischemic disease. Ayah Rao INDUSTRIAL RELATIONS COUNSELOR IM CT HEAD/NECK Final Result documented in this encounter Visit Diagnoses Diagnosis Disorientation, unspecified- Primary Disorientation, unspecified documented in this encounter Additional Health Concerns Infection Onset Date Last Indicated Resolved Time CoV-Risk 11/26/2022 11/26/2022 12/07/2022 1:21 AM EDT CoV-Exposed Comment:Positive COVID-19 02/28/2024 02/28/2024 02/28/2024 7:2 9 PM EDT CoV-Risk 02/28/2024 02/28/2024 02/28/2024 7:29 PM EDT COVID-19 02/28/2024 02/28/2024 03/20/2024 1:24 AM EST documented as of this encounter Care Teams Qm Consultant Relationship Specialty Start Date End Date Snow Cueto MD [address] [place] [address] [email or web address] - General 02/18/17 Zenon Bruce MD [email or web address] Historical LMR Provider 02/18/17 Chyna James MD [address] [place] [address], [facility] [address] [place] [address] [email or web address] Historical LMR Provider 02/18/17 documented as of this encounter Additional Source Comments The information contained in this document represents components of the legal health record. It is not the complete legal health record.[facility]
--- OUTSIDE RECORDS SUMMARY | 2024-12-27 14:50 | XMS_ITS | Encounter Summary ---
Author Organization [facility] Address [address] [place] [address] [place] [address] Phone Care Team Providers Care Cobbler Sole Name Role Phone Snow Cueto MD Primary Care Provider Snow Cueto MD Unavailable [phone] Zenon Bruce MD Unavailable [email or web address] Chyna James MD Unavailable [phone] Encounter Details Date Type Department Care Team (Latest Contact Info) Description 04/28/2017 Ancillary Orders [facility] [address] Floor, [address] [place] [address] Iram Roy PA [address] Sai [address] [place] [address] Atrial fibrillation and flutter Social History Tobacco Use Types Packs/Day Years Used Date Smoking Tobacco: Never Assessed Sex and Gender Information Value Date Recorded Sex Assigned at Male 02/26/2019 7:27 PM EDT Legal Sex Male 10:10 PM EDT Gender Identity Male 02/26/2019 7:27 PM EDT Sexual Orientation Don't know 02/28/2024 5: 32 PM EDT documented as of this encounter Plan of Treatment Upcoming Encounters Date Type Department Care Team (Late st Contact Info) Description 01/02/2025 1:00 PM EDT Office Visit [facility] [address] Floor, [address] [place] [address] Echo Mckeon DNP 22 [facility], [facility] [address] [place] [address] [email or web address] 01/03/2025 12:30 AM EDT Home Care Visit [facility] [address] [place] [phone] Monae Orr, JUVE [address] [place] [address] carlos 01/05/2025 Home Care Visit [facility] [address] [place] [phone] Monae Orr RN [address] [place] [address] carlos 01/10/2025 12:30 AM EDT Home Care Visit [facility] [address] [place] [phone] Monae Orr RN [address] [place] [address] carlos 01/12/2025 Appointment [facility] [address] [place] [phone] Monae Orr RN [address] [place] [address] carlos 03/01/2025 4:00 PM EDT Office Visit [facility] Rheumatology [address] [place] [address] Chyna James MD 22 [facility], [facility] [address] [place] [address] [email or web address] documented as of this encounter Visit Diagnoses Diagnosis Atrial fibrillation and flutter documented in this encounter Additional Health Concerns [...] documented as of this encounter Care Teams Cobbler Sole Relationship Specialty Start Date End Date Snow Cueto MD [address] [place] [phone] [email or web address] - General 02/18/17 Snow Cueto MD [address] [place] [address] [email or web address] Historical LMR Provider 02/18/17 2 Zenon Bruce MD [email or web address] Historical LMR Provider 02/18/17 Chyna James MD [address] [place] [address], [address] [place] [address] [email or web address] Historical LMR Provider 02/18/17 documented as of this encounter Additional Source Comments The information contained in this document represents components of the legal health record. It is not the complete legal health record.[facility]
--- OUTSIDE RECORDS SUMMARY | 2024-12-27 14:50 | XMS_ITS | Encounter Summary ---
Author Organization [facility] Address [address] [facility] [address] [place] [address] Phone Care Team Providers Care Tear Down Man Name Role Phone Snow Cueto MD Primary Care Provider [phone] Zenon Bruce MD Unavailable [email or web address] Chyna James MD Unavailable [phone] Encounter Details Date Type Department Care Team (Late st Contact Info) Description 02/02/2022 Procedure Pass Non-Invasive Cardiology [address] [place], [place] [phone] Social History Tobacco Use Types Packs/Day Years [...] Description 01/02/2025 1:00 PM EDT Office Visit [facility] 22 [facility] 3rd Floor, [address] [place], [place] [phone] Echo Mckeon DNP 22 [facility], [address] [place] [address] 01/03/2025 12:30 AM EDT Home Care Visit [facility] [address] [place] [phone] Monae Orr, JUVE [address] [place] [address] carlos 01/05/2025 Home Care Visit [facility] [address] [place] [phone] Monae Orr RN [address] [place] [address] carlos 01/10/2025 12:30 AM EDT Home Care Visit [facility] [address] [place] [phone] Monae Orr RN [address] [place] [address] carlos 01/12/2025 Appointment [facility] [address] [place] [phone] Monae Orr RN [address] [place] [phone] carlos 03/01/2025 4:00 PM EDT Office Visit [facility] Rheumatology [address] [place] [address] Chyna James MD 22 [facility], [facility] [address] [place] [address] [email or web address] [...] documented as of this encounter Care Teams Tear Down Man Relationship Specialty Start Date End Date Snow Cueto MD [address] [place] [phone] [email or web address] PCP - General 02/18/17 Zenon Bruce MD [email or web address] Historical LMR Provider 02/18/17 Chyna James MD [address] [place] [address] [address] [place] [address] [email or web address] Historical LMR Provider 02/18/17 documented as of this encounter Additional Source Comments The information contained in this document represents components of the legal health record. It is not the complete legal health record.[facility]
--- OUTSIDE RECORDS SUMMARY | 2024-12-27 14:50 | XMS_ITS | Clinical Summary ---
Author Organization [facility] Address [address] [place] [address] Phone Care Team Providers Care Property Portfolio Officer Name Role Phone Snow Cueto MD Primary Care Provider Allergies No known active allergies Medications No known medications Active Problems Problem Noted Date Diagnosed Date CKD (chronic kidney disease) stage 3, GFR 30-59 ml/min ([facility] V24, [facility] V28) 07/04/2013 DJD (degenerative joint disease) 07/04/2013 DM (diabetes mellitus), type 2 with neurological complications ([facility] V24, [facility] V28) 07/04/2013 Type 2 diabetes mellitus wit h renal manifestations, controlled ([facility] V24, [facility] V28) 07/04/2013 GERD (gastroesophageal reflux disease) 4 Mixed hyperlipidemia 07/04/2013 Surgical History Surgery Date Site/Laterality Comments CARPAL TUNNEL RELEASE 05/03/1994 PROCEDURE: [place] NEUROPLASTY &/TRANSPOS MEDIAN NRV CARPAL TUNNE TOTAL KNEE ARTHROPLASTY 05/03/1989 PROCEDURE: HISTORICAL TOTAL KNEE REPLACE; COMMENT: left TONSILLECTOMY 05/03/1955 PROCEDURE: HISTORICAL TONSILLECTOMY APPENDECTOMY 05/03/1954 PROCEDURE: HISTORICAL APPENDECTOMY COLONOSCOPY 04/15/2009 PROCEDURE: [place] COLONOSCOPY STOMA DX INCLUDING COLLJ SPEC SPX COLONOSCOPY 07/14/13 [facility] PROCEDURE: [place] COLONOSCOPY STOMA DX INCLUDING COLLJ SPEC SPX; COMMENT: tics; would not repeat ESOPHAGOGASTRODUODENOSCOPY 07/14/13 [facility] PROCEDURE: AZ ESOPHAGOGASTRODUODENOSCOPY TRANSORAL DIAGNOSTIC; COMMENT: normal OTHER SURGICAL HISTORY 08/03/2021 PROCEDURE: [place] SLCTV CATHJ 3RD+ ORD SLCTV ABDL PEL/LXTR [...] patient's age to complete this topic Insurance [facility] Care Teams Property Portfolio Officer Relationship Specialty Start Date End Date Snow Cueto MD [address] [place] [address] PCP - General 03/22/13
--- OUTSIDE RECORDS SUMMARY | 2024-12-27 14:50 | XMS_ITS | Clinical Summary ---
Author Organization [facility] Address [address] [place] [address] Care Team Providers Care Solderer Furnace Name Role Phone Snow Cueto MD Primary Care Provider [phone] Allergies Active Allergy Reactions Criticality Noted Date [...] right, initial encoun ter 01/20/2021 Osteoporosis 08/20/2020 [facility] current use of anticoagulant 9 Overview (01/13/2021): [...] this. 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 Type [...] this topic Medical Devices Implanted Type Area Physician Compensation Analyst Device Identifier Shelf Expiration Date Model / Serial / Lot [id number] Screw Interference Bcmps 15mm 5.5mm Acl [employer] Ster[employer] - [id number] Implanted:Qty: 1 on 01/20/2021 by Antwon Lord MD at [facility] Screw Right: Foot [employer] 06/02/2024 [id number] / / [id number] 4.0x 26mm Cannulated Screw Implanted:Qty: 1 on 01/20/2021 by Antwon Lord MD at [facility] Screw Right: Foot [employer] [id number] / / Procedures Procedure Name Priority Date/Time [...] 4.8 <5.7 % 01/13/2021 11:03 PM EDT [facility] Comment: A1c% Interpretation 5.7 - 6.0 Increase risk of diabetes 6.1 - 6.4 Higher risk of diabetes > or = 6.5 Consistent with diabetes Diabetes Care, 33(Supp 1):S1-S61, 2009 Estimated Average Glucose 91 mg/dL 01/13/2021 11:03 PM EDT [facility] Blood specimen (specimen) Blood specimen / Unknown 01/13/2021 1:24 PM EDT 01/13/2021 8:15 PM EDT us Damian Dockery SHOE WORKER LAB BLOOD ORDERABLES Final Result [facility]PITAL [facility] [address] [place] [address] * (ABNORMAL) Comprehensive Metabolic Panel (01/13/2021 1:24 PM EDT) Glucose 90 65 - 99 mg/dL 01/13/2021 9:40 PM [facility] Comment:Fasting: <100 mg/dL, Non-Fasting: <200 mg/dL (ADA 2005) Blood Urea Nitrogen (BUN) 26(H) 8 - 21 mg/dL 01/13/2021 9:40 PM [facility] Creatinine 1.3 0.5 - 1.3 mg/dL 01/13/2021 9:40 PM [facility] eGFR 54(L) >59 01/13/2021 9:40 PM [facility] Comment:MDRD in mL/min/1.73 sq meters. GFR - 65 >59 01/13/2021 9:40 PM [facility] Comment:MDRD in mL/min/1.73 sq meters. Sodium 139 136 - 145 mmol/L 01/13/2021 9:40 PM [facility] Potassium 5.5(H) 3.4 - 5.3 mmol/L 01/13/2021 9:40 PM [facility] Chloride 105 98 - 107 mmol/L 01/13/2021 9:40 PM [facility] CO2 23 22 - 33 mmol/L 01/13/2021 9:40 PM [facility] Calcium 9.1 8.7 - 10.5 mg/dL 01/13/2021 9:40 PM [facility] Alkaline Phosphatase 254(H) 45 - 128 U/L 01/13/2021 9:40 PM [facility] Aspartate Aminotrans (AST) 67(H) 10 - 55 U/L 01/13/2021 9:40 PM [facility] Alanine Aminotrans (ALT) 59(H) 10 - 55 U/L 01/13/2021 9:40 PM [facility] Bilirubin, Total 0.7 0.2 - 1.0 mg/dL 01/13/2021 9:40 PM [facility] Protein, Total 6.8 6.3 - 8.3 g/dL 01/13/2021 9:40 PM EDT [facility] Albumin 3.8 3.4 - 4.8 g/dL 01/13/2021 9:40 PM EDT [facility] BUN/Creatinine Ratio 20 10.0 - 25.0 Ratio 01/13/2021 9:40 PM EDT [facility] Globulin 3.0 1.5 - 3.9 g/dL 01/13/2021 9:40 PM EDT [facility] Albumin/Globulin Ratio 1.3 1.0 - 3.0 Ratio 01/13/2021 9:40 PM EDT [facility] Anion Gap 11 7 - 17 01/13/2021 9:40 PM EDT [facility] Blood specimen (specimen) (Plasma/Serum) 01/13/2021 1:24 PM EDT 01/13/2021 8:15 PM EDT Damian Dockery SHOE WORKER LAB BLOOD ORDERABLES Final Result Performing Organization Address City/State/[facility] Co de Phone Number HOSPITAL LAB [address] [address] from Last 3 Months or Most Recently Relevant to Health Maintenance Insurance [facility] Advance Directives * Full Code (Latest Code Status on File) Date Activated Date Inactivated Comments 01/20/2021 9:39 AM * Full Code Date Activated Date Inactivated Comments 01/20/2021 7:35 AM 01/20/2021 9:39 AM Care Teams Solderer Furnace Relationship Specialty Start Date End Date Snow Cueto MD [address] [place] [address] PCP - General Family Medicine 01/01/21
--- OUTSIDE RECORDS SUMMARY | 2024-12-27 14:50 | XMS_ITS | Encounter Summary ---
Author Organization [facility] Address [email or web address] [facility] [address] [place] [address] Phone Care Team Providers Care Fisher Scallop Name Role Phone Snow Cueto MD Primary Care Provider Snow Cueto MD Unavailable [phone] Zenon Bruce MD Unavailable [email or web address] Chyna James MD Unavailable [phone] Encounter Details Date Type Department Care Team (Late st Contact Info) Description 01/15/2021 Procedure Pass Non-Invasive Cardiology [address] [place] [address] Social History Tobacco Use Types Packs/Day Years [...] Description 01/02/2025 1:00 PM EDT Office Visit [facility] [address], [address] [place], [place] [phone] Echo Mckeon DNP 22 [facility], [address] [place] [address] 01/03/2025 12:30 AM EDT Home Care Visit [facility] [address] [place] [phone] Monae Orr, JUVE [address] [place] [address] carlos 01/05/2025 Home Care Visit [facility] [address] [place] [phone] Monae Orr, JUVE [address] [place] [address] carlos 01/10/2025 12:30 AM EDT Home Care Visit [facility] [address] [place] [phone] Monae Orr RN [address] [place] [address] carlos 01/12/2025 Appointment [facility] [address] [place] [phone] Monae Orr RN [address] [place] [address] carlos 03/01/2025 4:00 PM EDT Office Visit [facility] Rheumatology [address] [place] [phone] Chyna James MD 22 [facility], [facility] [address] [place] [address] [email or web address] documented as of [...] documented as of this encounter Care Teams Fisher Scallop Relationship Specialty Start Date End Date Snow Cueto MD [address] [place] [address] [email or web address] PCP - General 02/18/17 Snow Cueto MD [address] [place] [address] [email or web address] Historical LMR Provider 02/18/17 2 Zenon Bruce MD [email or web address] Historical LMR Provider 02/18/17 Chyna James MD [address] [place] [address] [address] [place] [address] [email or web address] Historical LMR Provider 02/18/17 documented as of this encounter Additional Source Comments The information contained in this document represents components of the legal health record. It is not the complete legal health record.[facility]
--- OUTSIDE RECORDS SUMMARY | 2024-12-27 14:50 | XMS_ITS | Encounter Summary ---
Author Organization [facility] Address [address] [facility] [address] [place] [address] Phone Care Team Providers Care Tender Coordinator Name Role Phone Snow Cueto MD Primary Care Provider Zenon Bruce MD Unavailable [email or web address] Chyna James MD Unavailable [phone] Encounter Details Date Type Department Care Team (Late st Contact Info) Description 07/16/2021 Procedure Pass Non-Invasive Cardiology [address] [place], [place] [phone] Social History Tobacco Use Types Packs/Day Years [...] Description 01/02/2025 1:00 PM EDT Office Visit [facility] [address] [facility] 3rd Floor, [address] [place], [place] [phone] Echo Mckeon DNP [address] [facility], [address] [place] [address] 01/03/2025 12:30 AM EDT Home Care Visit [facility] [address] [place] [phone] Monae Orr, JUVE [address] [place] [phone] carlos 01/05/2025 Home Care Visit [facility] [address] [place] [phone] Monae Orr RN [address] [place] [phone] carlos 01/10/2025 12:30 AM EDT Home Care Visit [facility] [address] [place] [phone] Monae Orr RN [address] [place] [address] carlos 01/12/2025 Appointment [facility] [address] [place] [phone] Monae Orr RN [address] [place] [phone] carlos 03/01/2025 4:00 PM EDT Office Visit [facility] Rheumatology [address] [place] [address] Chyna James MD 22 [facility] [address] [place] [address] [email or web address] documented as of this encounter Visit Diagnoses Not on filedocumented in this encounter Additional Health Concerns Infection Onset Date Last Indicated Resolved Time CoV-Risk 10/10/2021 10/10/2021 10/21/2021 1:22 AM EDT CoV-Risk 11/26/2022 11/26/2022 12/07/2022 1:21 AM EDT [facility]-Exposed Comment:Positive COVID-19 02/28/2024 02/28/2024 02/28/2024 7:2 9 PM EDT CoV-Risk 02/28/2024 02/28/2024 02/28/2024 7:2 9 PM EDT COVID-19 02/28/2024 02/28/2024 03/20/2024 1:24 AM EST documented as of this encounter Care Teams Tender Coordinator Relationship Specialty Start Date End Date Snow Cueto MD [address] [place] [phone] [email or web address] PCP - General 02/18/17 Zenon Bruce MD [email or web address] Historical LMR Provider 02/18/17 Chyna James MD [address] [place] [address] [address] [place] [address] [email or web address] Historical LMR Provider 02/18/17 documented as of this encounter Additional Source Comments The information contained in this document represents components of the legal health record. It is not the complete legal health record.[facility]
--- OUTSIDE RECORDS SUMMARY | 2024-12-27 14:50 | XMS_ITS | Clinical Summary ---
Author Organization [facility] Address [address] [place] [id number] Phone Care Team Providers Care Sheet Tester Name Role Phone Snow Cueto MD Primary Care Provider [phone] Zenon Bruce MD Unavailable [email or web address] [email or web address] [place] Chyna James MD Unavailable [phone] Allergies Active Allergy Reactions Criticality Noted Date Comments Bee Venom Protein (Honey Bee) Anaphylaxis High 03/03 Nsaids (Non-Steroidal Anti-Inflammatory Drug) Other (See Comments) Low 01/13/2021 Pregabalin Unknown Low 01/13/2021 Spider Venom Unknown Low 04/11/2018 Sulfamethoxazole-Trimethoprim Rash Low 2020 Medications buPROPion (WELLBUTRIN SR) 150 MG SR 12 hr tablet 1 tab bid Active apixaban (ELIQUIS) 5 mg tablet Take 5 mg by mouth 2 (two) times a day. Active oxyCODONE HCl 10 mg Tab Take 10 mg by mouth every 6 (six) hours as needed (moderate pain). Active simvastatin (ZOCOR) 20 MG tablet Take 20 mg by mouth nightly at bedtime. Active cholecalciferol (VITAMIN D3) 5,000 unit capsule 5,000 units daily Active therapeutic multivitamin tablet Take 1 tablet by mouth daily. Active gabapentin (NEURONTIN) 300 MG capsule Take 600 mg by mouth 4 (four) times a day. 9 Active lancets 28 gauge Misc Inject 1 each under the skin every morning. 0 Active blood sugar diagnostic (FREESTYLE LITE) Strp strips Inject 1 each under the skin every morning. 0 Active albuterol 90 mcg/actuation inhaler Inhale 2 puffs into the lungs every 4 (four) hours as needed. 1 Active fentaNYL (DURAGESIC) 50 mcg/hr APPLY 1 PATCH TOPICALLY EVERY 3 DAYS 1 Active acetaminophen (TYLENOL) 325 mg tablet Take 2 tablets (650 mg total) by mouth every 6 (six) hours as needed for mild pain. 0 2 Active omeprazole (PRILOSEC) 20 MG capsule Take 1 capsule (20 mg total) by mouth daily. 2 Active lisinopril (PRINIVIL,ZESTRIL ) 2.5 MG tablet Take 2.5 mg by mouth daily. Active diclofenac sodium (VOLTAREN) 1 % Gel APPLY 2 GRAMS TOPICALLY TO THE AFFECTED AREA TWICE DAILY NEEDED FOR KNEE PAIN 200 g 1 4 Active carbidopa-levodop a (SINEMET) 25-100 mg per tablet Take 2 tablets by mouth 3 (three) times a day. 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 TAKE 1 TABLET(1000 MCG) BY MOUTH DAILY 90 tablet 3 5 Active methotrexate 2.5 MG Oral tabletIndications :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 with positive rheumatoid factor TAKE 6 TABLETS(15 MG) BY MOUTH EVERY 7 DAYS 72 tablet 5 Active predniSONE (DELTASONE) 1 MG tabletIndications :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 with positive rheumatoid factor TAKE 1 TABLET(1 MG) BY MOUTH DAILY 30 tablet 2 5 Active Active Problems Problem Noted Date Diagnosed Date Vitamin D insufficiency 04/12/2024 Assessment & Plan (04/28/2024 7:17 PM EST): Continue vitamin D supplementation to keep serum level within optimal range: 40- 45 ng/ml. Pneumonia due to infectious organism, unspecified laterality, unspecified part of lung 02/28/2024 Assessment & Plan (02/29/2024 7:53 AM EDT): Patient presented with cough and fever CXR shows b/l hazy opacities, unclear if this is secondary to covid or bacterial pna Empirically started on IV rocephin and azithromycin Will follow up legionella and strep pneumo serology, MRSA pcr Blood cx have been NTD COVID 02/28/2024 Assessment & Plan (02/29/2024 7:52 AM EDT): Diagnosed with COVID about 2 weeks ago, prescribed Lagevrio 02/16 which he only took for 3 days due to diarrhea Remains covid positive Atrial fibrillation 02/28/2024 Assessment & Plan (02/29/2024 9:13 AM EDT): HR controlled Continue anticoagulation with eliquis, patient also has a history of DVT Chronic prescription opiate use 01/05/2024 Assessment & Plan (10/27/2024 4:38 PM EDT): Take exactly as prescribed, try to limit frequency by employing non-for pharmacologic measures such as topical creams, warm packs, patches, regular relaxation/mediation/positive imagery sessions etc. Build up regular exercise routine up to the goal of 30-45 minutes daily. Monitor for increasing shortness of breath, reduced respiratory drive, increasing constipation Assessment & Plan (04/12/2024 1:58 PM EST): Take exactly as prescribed, try to limit frequency by employing non-for pharmacologic measures such as topical creams, warm packs, patches, regular relaxation/mediation/positive imagery sessions etc. Build up regular exercise routine up to the goal of 30-45 minutes daily. Monitor for increasing shortness of breath, reduced respiratory drive, increasing constipation Assessment & Plan (01/05/2024 1:32 PM EDT): Take exactly as prescribed, try to limit frequency by employing non-for pharmacologic measures such as topical creams, warm packs, patches, regular relaxation/mediation/positive imagery sessions etc. Build up regular exercise routine up to the goal of 30-45 minutes daily. Monitor for increasing shortness of breath, reduced respiratory drive, increasing constipation Anticoagulated 07/02/2022 Assessment & Plan (10/27/2024 4:38 PM EDT): Avoid falls, injuries and cuts. Monitor for excessive bruising and bleeding. Assessment & Plan (04/12/2024 1:59 PM EST): Avoid falls, injuries and cuts. Monitor for excessive bruising and bleeding. Assessment & Plan (07/14/2022 7:27 PM EDT): Avoid falls, injuries and cuts. Monitor for excessive bruising and bleeding. NSAID long-term use 07/02/2022 Assessment & Plan (01/05/2024 1:32 PM EDT): Take the lowest dose, with least frequency, for shortest time. Remember to take it always with food. Favor topical over oral preparations. Assessment & Plan (07/14/2022 7:27 PM EDT): Take the lowest dose, with least frequency, for shortest time. Remember to take it always with food. Favor topical over oral preparations. Vitamin D deficiency 07/02/2022 Assessment & Plan (07/14/2022 7:24 PM EDT): Continue daily vitamin D 5000 units to keep serum level in optimal range: 40-45 ng/ml. Pneumonia 10/10/2021 Assessment & Plan (10/12/2021 12:30 PM EDT): Patient has not had any productive cough or worsening shortness of breath however he reports with deep inspiration he has right-sided pleuritic pain Chest x-ray shows right upper lobe infiltrate Legionella/strep pneumo urine antigen negative MRSA swab negative COVID swab x 2 negative Blood cultures no growth x 1 day, final results pending Patient states he is feeling better. He was noted to have a temp of 100.4 last night around 7:30pm. He wants to go home but given his recent hx of bacteremia I explained we should wait for the final results of the BC. - I will continue him on Cefepime for now and d/c vanco as his MRSA was negative until BC have resulted -continue to trend procal S/P laparoscopic cholecystectomy 06/18/2021 Choledocholithiasis with acute cholecystitis Assessment & Plan (04/17/2021 6:44 PM EST): Patient presented with fevers and chills but no abdominal pain nausea vomiting. Patient empirically started on Zosyn with improvement in his fever curve. -Labs ED revealed elevated transaminases, alk phos to 440, total bilirubin 2.4. -CT scan with cholelithiasis and choledocholithiasis. -Blood cultures no growth x1 day. GI consult appreciated recommend antibiotics, hold Eliquis, ERCP. 04/17 patient had ERCP at [facility] by Dr. Palomino. Report notes that patient's bile duct was filled with sludge and stones, sphincterotomy and sphincteroplasty was performed. The cholangiogram did not opacify the cystic duct and given that patient did not have a date for cholecystectomy a biliary stent was placed to maintain Dr. Garcia T until cholecystectomy. Pancreatic stent was also placed to decrease risk of post ERCP pancreatitis. Plan -Patient to follow-up with GI for removal of stent in 2 to 3 months. -Surgical follow-up for cholecystectomy -Continue to hold Eliquis. -Continue treatment with Zosyn. Sepsis 04/16/2021 Assessment & Plan (04/16/2021 5:46 PM EST): Patient met criteria for sepsis on admission with fever chills hypotension. He status post resuscitation with IV fluids and continues on IV Zosyn. 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 -No evidence of acute infection of the wound on exam. No purulent drainage or erythema. -Patient seen by wound care nurse consult appreciated. Plan -Things per wound nurse. Fever in adult 04/15/2021 Assessment & Plan (04/15/2021 1:59 AM EST): Patient presents with fever and chills. Most likely etiology is this right lateral foot ulcer. This does appear to be more chronic in nature but has some possibly new surrounding erythema. He had recently been treated with a course of doxycycline for this as an outpatient. Also considered is pneumonia based on chest xray but this is less likely given lack or respiratory symptoms. Patient also has elevated LFTs and abdominal source of infection considered but patient does not have any symptoms of abdominal infection. Patient technically met sepsis criteria in the ED for fever and initial respiratory rate of 22 with presumed right foot source and hypotension. He has a normal lactate. - Continue vancomycin and zosyn for likely infected diabetic foot ulcer - F/u urine and blood cultures - Trend procalcitonin - Patient received fluid bolus in ED with continue resuscitation with maintenance IV fluids. Elevated LFTs 04/15/2021 Assessment & Plan (04/15/2021 1:51 AM EST): Elevated LFTs in patient on methotrexate with benign abdominal exam. - F/u CT abdomen - Consider RUQ US with abdominal CT without contrast is unremarkable - Consider holding methotrexate and rheumatology consult Osteoporosis 08/20/2020 Carpal tunnel syndrome of right wrist 08/20/2020 Charcot's joint 01/03/2020 Effusion of right knee 09/29/2019 Assessment & Plan (08/12/2020 4:31 PM EDT): He has secondary osteoarthritis in this knee and from time to time aspiration and corticosteroid injection can be helpful but he does not necessarily need that today and while he is healing from an amputation in the right great toe which was involved with osteomyelitis I feel we should try to minimize his exposure to glucocorticoids. Assessment & Plan (10/01/2019 11:02 AM EDT): Procedure: After an informed oral consent, under sterile conditions using Ethyl chloride spray for local anesthesia and 3 cc 1% Lidocaine as topical anesthetic I have aspirated 31 cc of clear synovial fluid from his right knee via medial approach. Following aspiration I have injected 40 mg DepoMedrol and 2 cc 1% Lidocaine into Right knee from medial approach uneventfully. Details of post-procedure care were explained to the patient in the office and given in writing. 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 Refrain from alcohol drinking while taking methotrexate. Hold methotrexate whenever running fever, feeling sick or taking antibiotics. Wait at least 48 hours after the last dose of antibiotic to make sure that infection does not return before going back to his weekly usual methotrexate schedule. Assessment & Plan (04/12/2024 2:12 PM EST): Take exactly as prescribed. Refrain from alcohol drinking while taking methotrexate. Hold methotrexate whenever running fever, feeling sick or taking antibiotics. Wait at least 48 hours after the last dose of antibiotic to make sure that infection does not return before going back to his weekly usual methotrexate schedule. Assessment & Plan (01/05/2024 1:32 PM EDT): Take exactly as prescribed. Refrain from alcohol drinking while taking methotrexate. Hold methotrexate whenever running fever, feeling sick or taking antibiotics. Wait at least 48 hours after the last dose of antibiotic to make sure that infection does not return before going back to his weekly usual methotrexate schedule. Assessment & Plan (08/12/2020 4:32 PM EDT): No signs or symptoms of methotrexate toxicity. Assessment & Plan (10/01/2019 11:09 AM EDT): Take exactly as prescribed. Refrain from alcohol drinking while taking methotrexate. Hold methotrexate whenever running fever, feeling sick or taking antibiotics. Wait at least 48 hours after the last dose of antibiotic to make sure that infection does not return before going back to his weekly usual methotrexate schedule. Non-rheumatic mitral regurgitation 10/11/2018 Assessment & Plan (01/29/2022 2:26 PM EDT): Mild on echo in 2019. No new symptoms. Plan to repeat an echo in surveillance in the next year or so. [facility] current use of anticoagulant 9 Assessment & Plan (01/05/2024 1:33 PM EDT): Continue exactly as prescribed. Due to chronic anticoagulation I took extra caution of the right knee aspiration to make sure that he formed stable clot at the procedure site before letting him leave the office. Assessment & Plan (10/01/2019 11:08 AM EDT): Continue exactly as prescribed. Due to chronic anticoagulation I took extra caution of the right knee aspiration to make sure that he formed stable clot at the procedure site before letting him leave the office. Localized osteoarthritis of shoulder regions, bi lateral 03/08/2018 Assessment & Plan (07/25/2018 12:36 PM EDT): Reviewed the previous shoulder x-rays which indicated severe bilateral glenohumeral and acromioclavicular osteoarthritis. We will need to live around the arthritis as he is not a candidate for total joint arthroplasty. If he has quite a bit of pain a rescue intra-articular steroid injection could be helpful but that is not the case now. Assessment & Plan (03/08/2018 12:26 PM EST): Severe, bilateral, left greater than right secondary osteoarthritis of the glenohumeral shoulder joint. Reviewed x-ray today of the left shoulder showing severe loss in range of motion, chronic rotator cuff tear, and subchondral cyst formation in the humeral head. We talked about the possibility of total shoulder replacement and he states that he spoke to his orthopedic surgeon about this last year who felt that there was not enough viable bone to receive the prosthesis. No need to inject this as it will not help. We will see if he can live around the restriction in range of motion. He may use a soft rolled up towel under both axillae at night which would help his nocturnal pain. He will continue on gabapentin. Augmentation and his pain medicine may be necessary. Osteoarthritis of right knee 10/19/2017 Assessment & Plan (01/25/2019 11:14 AM EDT): Both rheumatoid and secondary osteoarthritis of the right knee conspire to cause advanced tricompartmental disease which has not responded to protracted, prednisone, or intra-articular aspiration and cortisone injection so I am referring him back to his orthopedic surgeon for evaluation on total knee arthroplasty. Assessment & Plan (03/08/2018 12:25 PM EST): Severe secondary tricompartmental osteoarthritis of the right knee is flaring with a large effusion decreased range of motion tenderness and pain. I will aspirate and inject cortisone into the knee today. We will see how this goes. Assessment & Plan (10/19/2017 12:57 PM EDT): Pain and swelling in the right knee secondary osteoarthritis of be treated today with aspiration and local injection. Peripheral vascular disease 07/17/2017 Assessment & Plan (10/27/2024 4:38 PM EDT): Continue regular walking and follow-up with vascular specialist as scheduled. Assessment & Plan (04/28/2024 7:18 PM EST): Continue regular walking and follow-up with vascular specialist as scheduled. Assessment & Plan (01/19/2023 1:56 PM EDT): Recent YANG normal, YELITZA showing no recurrent stenosis in right SFA stent. He is happy to hear this. He has no concerning symptoms. He will continue Eliquis and pravastatin. Followed by Dr Kasper at [facility]- requests we fax most recent arterial studies to her office. I have asked the MA team to do this. Assessment & Plan (01/29/2022 2:25 PM EDT): Recent YANG normal, YELITZA showing no recurrent stenosis in right SFA stent. He is happy to hear this. He has no concerning symptoms. He will continue Eliquis and pravastatin. Assessment & Plan (10/12/2021 12:14 PM EDT): - Patient has history of left BKA that has healed well, he also has right SFA stenting with right fifth metatarsal foot excision and I&D performed on 08/02/2021 with pathology negative for osteomyelitis status post completion of antibiotics course and now with wound VAC He is suppose to have an appt tomorrow but will cancel as he is currently in the hospital. -wound care consult Assessment & Plan (04/17/2021 6:45 PM EST): Apixaban on hold and ERCP today 04/17. Restart when okay by GI. Assessment & Plan (11/16/2017 5:07 PM EDT): He has been treated with a new prosthesis which fits his stump very well without pain or excessive motion and he is more confident when walking with, and he is quite happy with this. He will go back to the substation designer to fine tune this prosthetic device. History of left below knee amputation 07/17/2017 Assessment & Plan (10/27/2024 4:38 PM EDT): Over 5 years ago secondary to circulatory problem. He is aware about ongoing circulatory issues and need for regular walking, avoidance of weight gain injuries and need for close follow-up with his vascular specialist. Assessment & Plan (04/28/2024 7:20 PM EST): Over 5 years ago secondary to circulatory problem. He is aware about ongoing circulatory issues and need for regular walking, avoidance of weight gain injuries and need for close follow-up with his vascular specialist. Assessment & Plan (01/25/2019 11:15 AM EDT): 10 you current wound care therapy and looking forward to fitting him with a prosthesis. Understands the slow improvement in wound healing is likely secondary to his immunosuppressive medications and chronic inflammatory state. Assessment & Plan (07/25/2018 12:36 PM EDT): No signs of blistering or chafing of the skin in the stump. He is getting used to the prosthetic device. Assessment & Plan (03/08/2018 12:23 PM EST): Doing reasonably well with this without signs or symptoms of stump infection. Advised to stop cigarette smoking. Type 2 diabetes mellitus wit h circulatory disorder, without long-term current use of insulin 07/17/2017 Assessment & Plan (11/26/2024 10:46 PM EDT): Reviewed need for avoiding high concentrated sugars food products. Well-balanced nutritionally diet in smaller, more frequent meals: 4-5 times daily. Assessment & Plan (02/29/2024 7:51 AM EDT): Diet controlled Monitor point of care, cover with insulin sliding scale as needed Assessment & Plan (10/12/2021 12:19 PM EDT): -Patient is not on any diabetic medications at home. Most recent hemoglobin A1c from 9 months ago was 4.8 His blood sugar was noted at 44 this am and was given OJ and food with repeat noted at 96. -continue to monitor POCs with meals -given his low BS will hold on the humalog ss for now -diabetic diet Assessment & Plan (04/16/2021 5:49 PM EST): History of type 2 diabetes on chronic prednisone for RA. Blood sugars very well controlled in the 80s throughout the course today. -Continue carbohydrate consistent diet. -Continue to monitor with [id number] glucose and insulin sliding scale coverage. Essential hypertension 07/17/2017 Assessment & Plan (02/29/2024 7:51 AM EDT): BP on the low side in the ED, improved after 1L NS given by EMS, hold lisinopril He is on a very low dose of prednisone for RA, am cortisol normal Assessment & Plan (01/19/2023 1:56 PM EDT): BP in office today 118/78. Continue 2.5 mg lisinopril daily. Assessment & Plan (01/29/2022 2:27 PM EDT): Tells me that BP at home is usually around 120-130 systolic. He is not on any antihypertensives at this time, follows a low sodium diet. Assessment & Plan (10/12/2021 12:13 PM EDT): Patient is managed on lisinopril at home however this was held on admission secondary to elevated creatinine. Blood pressures continue to be stable and creatinine remains slightly elevated at 1.3 - continue to hold lisinopril for now and closely monitor blood pressures. -We will also closely watch creatinine. Assessment & Plan (04/16/2021 5:52 PM EST): Blood pressure stable and well-controlled on lisinopril 2.5 mg daily. -Monitor blood pressures per protocol. Assessment & Plan (01/15/2021 10:27 AM EDT): His blood pressure has been trending on the lower side at home. Here in the office is 96/60. He was still taking carvedilol 6.25 mg twice daily,Though it was recommended to be discontinued on his discharge in August 2020 after his A. fib ablation. I have asked him to stop taking his Coreg at this time to help improve his heart rate possibly improve his first-degree AV block as well as improving his hypotension. He is currently asymptomatic with the bradycardia or hypotension. He is here today for cardiac clearance prior to foot surgery this upcoming Wednesday. From a cardiology standpoint no further cardiac testing needed at this time. He is a moderate risk for an intermittent risk surgery per NSQIP calculator. Okay to hold Eliquis prior to procedure and bridge with Lovenox per surgeons discretion as well as restarting anticoagulation at surgeon discretion but as soon as possible Assessment & Plan (04/11/2018 3:27 PM EST): Blood pressure today well controlled on his current regimen. GERD (gastroesophageal reflux disease) 8 Assessment & Plan (10/27/2024 4:38 PM EDT): Avoid late, large, spicy meals. Keep headboard elevated at 45 angle for nighttime. Assessment & Plan (08/12/2020 4:31 PM EDT): Continue omeprazole 20 mg daily as a gastroprotective agent. Assessment & Plan (11/16/2017 5:05 PM EDT): This has been stable on current medications. Chronic obstructive pulmonary disease 07/17/2017 Hyperlipidemia 07/17/2017 Assessment & Plan (01/19/2023 1:57 PM EDT): Continue simvastatin. LDL goal < 70 mg/dL. Assessment & Plan (01/29/2022 2:28 PM EDT): We do not have recent lipids available in our system. His tells me that he recently had these checked at PCP's office- will request. Continue simvastatin. Assessment & Plan (04/11/2018 3:28 PM EST): Continue simvastatin. 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 Continue Eliquis. He has a Fixational ILR that we will continue to remotely monitor. Assessment & Plan (01/29/2022 2:26 PM EDT): Asymptomatic. Continue Eliquis. Assessment & Plan (10/12/2021 12:19 PM EDT): Patient is followed by [facility], last seen in July 2021. It appears he had been on Coreg but since off. His current NE interval is noted at 338 (he does have a hx of 1st degree AV block) Heart rate well controlled. -Continue anticoagulation with Eliquis Assessment & Plan (01/15/2021 10:11 AM EDT): S/p ablation he was asked to discontinue his blockers post procedure in August however this was missed and he has continued to take carvedilol 6.25 mg twice daily. We will discontinue this medication today for a bradycardic and prolonged NE interval. He is asymptomatic with this. He also has had some hypotensive blood pressure readings and again is asymptomatic. We will continue to monitor his ILR. He will continue Eliquis 5 mg twice daily for anticoagulation. Assessment & Plan (12/16/2020 2:36 PM EDT): Status post ablation, he is hemodynamically stable on current medications and anticoagulation. Assessment & Plan (04/11/2018 3:27 PM EST): He remains in atrial flutter. Adequate rate control on his current meds. He is appropriately anticoagulated. He is completely asymptomatic. We will continue with rate control. Follow-up has been arranged for [address] Castillo. 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 with positive rheumatoid factor 02/22/2017 Assessment & Plan (10/27/2024 4:55 PM EDT): Clinically stable laboratory [place] still anemic with mild ESR and CRP elevation. Get new set of monitoring lab prior to next visit in 4 months -standing orders in [facility] and carefully continue current dose of weekly oral methotrexate at 15 mg every Wednesday in addition to daily 1 mg folic acid and 1 mg prednisone. Importance of proper hydration particularly on the day of weekly methotrexate dose strongly encouraged. Reminded not to take NSAIDs on the day of weekly methotrexate intake. Try carefully decrease frequency of prednisone when able from 1 mg daily to 1 mg every other day. Continue gentle, regular exercise routine preceded by the warm pack and warm shower to his tolerance. Avoid falls, injuries, overuse and sick contacts. Call if problems or questions. Return for monitoring labs and visit in 4 months or earlier if problems. Procedure: After an informed oral/written consent, under sterile conditions using Ethyl chloride spray for local anesthesia I have injected 40 mg Kenalog and 2 cc 1% Lidocaine into Right knee from medial approach uneventfully. Details of post-procedure care were explained to the patient in the office and given in writing. Provider: Chyna James MD Patient: Cuauhtemoc Nayak : 1945 Date: 10/27/2024 Assessment & Plan (04/28/2024 7:17 PM EST): Clinically stable laboratory [place] still anemic with mild ESR and CRP elevation. Get new set of monitoring lab prior to next visit in 4 months -standing orders in [facility] and carefully continue current dose of weekly oral methotrexate at 15 mg every Wednesday in addition to daily 1 mg folic acid and 1 mg prednisone. Importance of proper hydration particularly on the day of weekly methotrexate dose strongly encouraged. Reminded not to take NSAIDs on the day of weekly methotrexate intake. Try carefully decrease frequency of prednisone when able from 1 mg daily to 1 mg every other day. Continue gentle, regular exercise routine preceded by the warm pack and warm shower to his tolerance. Avoid falls, injuries, overuse and sick contacts. Call if problems or questions. Return for monitoring labs and visit in 4 months or earlier if problems. Procedure: After an informed oral/written consent, under sterile conditions using Ethyl chloride spray for local anesthesia I have injected 40 mg Kenalog and 2 cc 1% Lidocaine into Right knee from infero-medial approach uneventfully. Details of post-procedure care were explained to the patient in the office and given in writing. Provider: Chyna James MD Patient: Cuauhtemoc Nayak : 1945 Date: 04/12/2024 Assessment & Plan (02/29/2024 7:51 AM EDT): Hold methotrexate while treating infection Assessment & Plan (01/05/2024 2:23 PM EDT): Clinically stable laboratory [place] still anemic with mild ESR and CRP elevation. Get new set of monitoring lab prior to next visit in 3 months s-standing orders in [facility] and carefully continue current dose of weekly oral methotrexate at 15 mg every Wednesday in addition to daily 1 mg folic acid and 1 mg prednisone. Importance of proper hydration particularly on the day of weekly methotrexate dose strongly encouraged. Reminded not to take NSAIDs on the day of weekly methotrexate intake. Try carefully decrease frequency of prednisone when able from 1 mg daily to 1 mg every other day. Get yearly influenza and COVID-19 newest booster vaccine dose preferably by mid to and February 2024 and hold methotrexate for 2 weekly doses. Continue gentle, regular exercise routine preceded by the warm pack and warm shower to his tolerance. Avoid falls, injuries, overuse and sick contacts. Call if problems or questions. Return for monitoring labs and visit in 4 months or earlier if problems. Assessment & Plan (07/14/2022 7:25 PM EDT): Get new set of monitoring labs-standing orders in [facility] and carefully continue current dose of weekly oral methotrexate at 15 mg every Wednesday in addition to daily 1 mg folic acid and 1 mg prednisone. Continue gentle, regular exercise routine preceded by the warm pack and warm shower to his tolerance. Avoid falls, injuries, overuse and sick contacts. Call if problems or questions. Return for monitoring labs and visit in 4 months or earlier if problems. Assessment & Plan (10/10/2021 4:42 PM EDT): -Continue home dose of methotrexate, 15 mg taken once weekly on Saturdays -Continue low-dose prednisone Assessment & Plan (04/16/2021 5:49 PM EST): Patient with no complaints of joint pain remains on prednisone 1 mg daily. No changes. GI prophylaxis with Protonix. Assessment & Plan (04/15/2021 1:49 AM EST): Patient on methotrexate and chronic prednisone therapy. He has elevated LFTs on admission concerning for possible methotrexate hepatotoxicity, though unlikely to cause hyperbilirubinemia as well. Consider rheumatology consult. 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 Discussed relationship of poor wound healing and immunosuppression and deeper bone infections with both the immunosuppression of methotrexate and prednisone as well as his peripheral arterial disease. He will reduce prednisone to 5 mg in the morning. He will continue on methotrexate at the current dose with folic acid rescue. Long- term potential risks of methotrexate were discussed but he has not exhibited those. We will continue to abstain from alcohol. Previous lab work was reviewed and new lab work will be ordered today. No visits with results within 3 Month(s) from this visit. Latest known visit with results is: Hospital Outpatient Visit on 08/19/2020 Component Date Value Ref Range Status SODIUM 08/19/2020 139 133 - 146 mmol/L Final POTASSIUM 08/19/2020 4.8 3.3 - 5.1 mmol/L Final CHLORIDE 08/19/2020 102 96 - 108 mmol/L Final CO2 08/19/2020 25 21 - 35 mmol/L Final BUN 08/19/2020 27* 6 - 19 mg/dL Final CREATININE 08/19/2020 1.30 0.5 - 1.5 mg/dL Final GLUCOSE 08/19/2020 87 70 - 99 mg/dL Final ALBUMIN 08/19/2020 3.8* 3.9 - 4.8 g/dL Final TOTAL PROTEIN 08/19/2020 6.6 6.5 - 8.0 g/dL Final CALCIUM 08/19/2020 9.3 8.4 - 10.3 mg/dL Final ALKALINE PHOSPHATASE 08/19/2020 135* 39 - 117 U/L Final TOTAL BILIRUBIN 08/19/2020 0.4 0.0 - 1.2 mg/dL Final AST 08/19/2020 24 0 - 37 U/L Final ALT 08/19/2020 8 0 - 40 U/L Final GLOBULIN 08/19/2020 2.8 1 - 4.8 g/dL Final EGFR 08/19/2020 53* >59 mL/min/1.73m2 Final Estimated glomerular filtration rate calculated using the CKD-EPI equation. ANION GAP 08/19/2020 17 10 - 20 mmol/L Final PT 08/19/2020 15.7* 10.2 - 12.9 sec Final INR 08/19/2020 1.4* 0.9 - 1.1 Final Therapeutic range for oral Vitamin K antagonists: 2.0-3.5 WBC 08/19/2020 7.21 4.00 - 11.00 K/uL Final RBC 08/19/2020 3.96 3.90 - 5.69 M/uL Final HGB 08/19/2020 12.8 12.4 - 17.3 g/dL Final HCT 08/19/2020 39.1 37.0 - 51.0 % Final PLT 08/19/2020 211 140 - 430 K/uL Final MCV 08/19/2020 98.7* 78.0 - 97.0 fL Final MCH 08/19/2020 32.3 25.0 - 33.0 pg Final MCHC 08/19/2020 32.7 32.0 - 36.0 g/dL Final RDW 08/19/2020 14.6 11.0 - 15.0 % Final MPV 08/19/2020 11.4 8.4 - 12.8 fl Final NRBC 08/19/2020 0.00 0 /100 WBCs Final ABSOLUTE NRBC 08/19/2020 0.00 0 K/uL Final DIFF METHOD 08/19/2020 Auto Final NEUTS 08/19/2020 81.1* 43.0 - 75.0 % Final LYMPHS 08/19/2020 12.1* 18.2 - 47.4 % Final MONOS 08/19/2020 4.7 4.00 - 11.00 % Final EOS 08/19/2020 1.4 0.0 - 8.0 % Final BASOS 08/19/2020 0.4 0.0 - 2.0 % Final Granulocytes, immature (%) 08/19/2020 0.3 0.0 - 0.9 % Final ABSOLUTE NEUTS 08/19/2020 5.85 1.80 - 7.70 K/uL Final ABSOLUTE LYMPHS 08/19/2020 0.87* 1.00 - 3.10 K/uL Final ABSOLUTE MONOS 08/19/2020 0.34 0.20 - 0.80 K/uL Final ABSOLUTE EOS 08/19/2020 0.10 0.00 - 0.80 K/uL Final ABSOLUTE BASOS 08/19/2020 0.03 0.00 - 0.09 K/uL Final Granulocytes, immature 08/19/2020 0.02 0.00 - 0.05 K/uL Final TSH 08/19/2020 3.63 0.27 - 4.20 uIU/mL Final C REACTIVE PROTEIN 08/19/2020 21.7* 0.0 - 4.0 mg/L Final A/G Ratio 08/19/2020 1.36 1.00 - 4.80 RATIO Final Bilirubin (Indirect) 08/19/2020 NOT CALCULATED 0 - 1.5 mg/dL Final DIRECT BILIRUBIN 08/19/2020 <0.2 0 - 0.3 mg/dL Final Assessment & Plan (08/12/2020 4:30 PM EDT): Severe polyarticular seropositive rheumatoid arthritis in a patient on 2 mg of prednisone daily and low-dose weekly pulse methotrexate. Long-term risks of methotrexate were discussed. He has done well with this medication without evidence of interstitial lung disease or hepatotoxicity. He will remain on methotrexate as long as his repeat liver tests appear normal. Previous lab work was checked. We also talked about the long-range potential risks of prednisone. He will taper by 0.5 mg daily every 3 weeks till off. Pain medication will continue unchanged. Admission on 06/06/2020, Discharged on 06/06/2020 Component Date Value Ref Range Status Ventricular Rate EKG/MIN 06/06/2020 62 BPM Final Atrial Rate 06/06/2020 248 BPM Final QRS Duration 06/06/2020 104 ms Final QT Interval 06/06/2020 422 ms Final QTC Interval 06/06/2020 428 ms Final P [place] 06/06/2020 81 degrees Final R Wave [place] 06/06/2020 28 degrees Final T Wave [place] 06/06/2020 30 degrees Final WBC 06/06/2020 5.89 4.00 - 11.00 K/uL Final Note Reference Range updates to all CBC and Differential results. RBC 06/06/2020 3.68* 3.90 - 5.69 M/uL Final HGB 06/06/2020 11.5* 12.4 - 17.3 g/dL Final Note updated Reference Ranges for all CBC and Differential results. HCT 06/06/2020 35.0* 37.0 - 51.0 % Final PLT 06/06/2020 141 140 - 430 K/uL Final MCV 06/06/2020 95.1 78.0 - 97.0 fL Final MCH 06/06/2020 31.3 25.0 - 33.0 pg Final MCHC 06/06/2020 32.9 32.0 - 36.0 g/dL Final RDW 06/06/2020 13.6 11.0 - 15.0 % Final MPV 06/06/2020 11.4 8.4 - 12.8 fl Final NRBC 06/06/2020 0.00 0 /100 WBCs Final ABSOLUTE NRBC 06/06/2020 0.00 0 K/uL Final SODIUM 06/06/2020 138 133 - 146 mmol/L Final POTASSIUM 06/06/2020 4.4 3.3 - 5.1 mmol/L Final CHLORIDE 06/06/2020 105 96 - 108 mmol/L Final CO2 06/06/2020 25 21 - 35 mmol/L Final ANION GAP 06/06/2020 12 10 - 20 mmol/L Final ACTIVATED CLOT TIME 06/06/2020 169* 82 - 152 sec Final Assessment & Plan (10/04/2019 3:03 PM EDT): Severe polyarticular erosive rheumatoid arthritis affecting large and small joints in the upper and lower antibody and patient consider secondary knee osteoarthritis. Periodic aspiration and cortisone injection will be necessary to control these flares and he will remain on methotrexate. I reviewed his lab test showing no Yuliana Segal. Renal function is slightly lower than before and he was made aware of this. Prednisone will be lowered by 0.5 mg every 3 weeks till off if tolerated and follow-up by telemedicine visit in 6 weeks. All questions were answered. Hospital Outpatient Visit on 09/29/2019 Component Date Value Ref Range Status SODIUM 09/29/2019 139 133 - 146 mmol/L Final POTASSIUM 09/29/2019 4.4 3.3 - 5.1 mmol/L Final CHLORIDE 09/29/2019 103 96 - 108 mmol/L Final CO2 09/29/2019 26 21 - 35 mmol/L Final BUN 09/29/2019 27* 6 - 19 mg/dL Final CREATININE 09/29/2019 1.40 0.5 - 1.5 mg/dL Final GLUCOSE 09/29/2019 93 70 - 99 mg/dL Final ALBUMIN 09/29/2019 3.7* 3.9 - 4.8 g/dL Final TOTAL PROTEIN 09/29/2019 6.3* 6.5 - 8.0 g/dL Final CALCIUM 09/29/2019 9.0 8.4 - 10.3 mg/dL Final ALKALINE PHOSPHATASE 09/29/2019 83 39 - 117 U/L Final TOTAL BILIRUBIN 09/29/2019 0.3 0.0 - 1.2 mg/dL Final AST 09/29/2019 21 0 - 37 U/L Final ALT 09/29/2019 12 0 - 40 U/L Final GLOBULIN 09/29/2019 2.6 1 - 4.8 g/dL Final EGFR 09/29/2019 48* >59 mL/min/1.73m2 Final If patient is black, multiply result by 1.159. Estimated glomerular filtration rate calculated using the CKD-EPI equation. ANION GAP 09/29/2019 14 10 - 20 mmol/L Final WBC 09/29/2019 6.06 4.00 - 11.00 K/uL Final Note Reference Range updates to all CBC and Differential results. RBC 09/29/2019 3.46* 3.90 - 5.69 M/uL Final HGB 09/29/2019 11.1* 12.4 - 17.3 g/dL Final Note updated Reference Ranges for all CBC and Differential results. HCT 09/29/2019 33.4* 37.0 - 51.0 % Final PLT 09/29/2019 200 140 - 430 K/uL Final MCV 09/29/2019 96.5 78.0 - 97.0 fL Final MCH 09/29/2019 32.1 25.0 - 33.0 pg Final MCHC 09/29/2019 33.2 32.0 - 36.0 g/dL Final RDW 09/29/2019 14.9 11.0 - 15.0 % Final MPV 09/29/2019 11.6 8.4 - 12.8 fl Final NRBC 09/29/2019 0.00 0 /100 WBCs Final ABSOLUTE NRBC 09/29/2019 0.00 0 K/uL Final DIFF METHOD 09/29/2019 Auto Final NEUTS 09/29/2019 69.7 43.0 - 75.0 % Final LYMPHS 09/29/2019 14.2* 18.2 - 47.4 % Final MONOS 09/29/2019 13.4* 4.00 - 11.00 % Final EOS 09/29/2019 1.5 0.0 - 8.0 % Final BASOS 09/29/2019 0.7 0.0 - 2.0 % Final Granulocytes, immature (%) 09/29/2019 0.5 0.0 - 0.9 % Final ABSOLUTE NEUTS 09/29/2019 4.23 1.80 - 7.70 K/uL Final ABSOLUTE LYMPHS 09/29/2019 0.86* 1.00 - 3.10 K/uL Final ABSOLUTE MONOS 09/29/2019 0.81* 0.20 - 0.80 K/uL Final ABSOLUTE EOS 09/29/2019 0.09 0.00 - 0.80 K/uL Final ABSOLUTE BASOS 09/29/2019 0.04 0.00 - 0.09 K/uL Final Granulocytes, immature 09/29/2019 0.03 0.00 - 0.05 K/uL Final C REACTIVE PROTEIN 09/29/2019 46.2* 0.0 - 4.0 mg/L Final Assessment & Plan (10/01/2019 11:07 AM EDT): Carefully continue weekly oral 17.5 mg methotrexate as prescribed. Remain on folic acid 1 mg daily. Gentle, regular ROM, stretching and muscle strengthening exercises preceded by warm pack or warm shower. Avoid sick contacts, falls, injuries, overuse. Get labs monitoring safety and efficacy of methotrexate therapy today and every 3 months afterwards. Call if problems or questions otherwise return in 3 months. Assessment & Plan (01/25/2019 11:15 AM EDT): Severe polyarticular erosive rheumatoid arthritis without extra-articular manifestations of disease is active but stable. We talked about the risks and benefits of adding biologic therapy in this patient who is at high risk for sepsis. He will stay on methotrexate at the current dose. He will have a flu vaccine. He will talk to his primary care physician about his scheduled for the Prevnar 13 and Pneumovax 23. It is good that he is no longer smoking. Some benefits of continued course of treatment were discussed in detail. No visits with results within 3 Month(s) from this visit. Latest known visit with results is: Hospital Outpatient Visit on 03/08/2018 Component Date Value Ref Range Status WBC 03/08/2018 7.34 3.40 - 11.20 K/uL Final RBC 03/08/2018 4.00* 4.50 - 5.50 M/uL Final HGB 03/08/2018 12.9* 13.0 - 17.0 g/dL Final HCT 03/08/2018 39.2* 40.0 - 51.0 % Final PLT 03/08/2018 190 130 - 400 K/uL Final MCV 03/08/2018 98.0 79.0 - 98.0 fL Final MCH 03/08/2018 32.3 27.0 - 34.8 pg Final MCHC 03/08/2018 32.9 31.5 - 36.0 g/dL Final RDW 03/08/2018 14.8* 10.8 - 14.6 % Final MPV 03/08/2018 10.8 9.4 - 12.4 fl Final NRBC 03/08/2018 0.00 0.00 /100 WBCs Final ABSOLUTE NRBC 03/08/2018 0.00 0.00 K/uL Final DIFF METHOD 03/08/2018 Auto Final NEUTS 03/08/2018 83.1* 45.30 - 77.70 % Final LYMPHS 03/08/2018 12.3 12.30 - 39.70 % Final MONOS 03/08/2018 3.0* 4.10 - 12.80 % Final EOS 03/08/2018 0.5 0 - 7.2 % Final BASOS 03/08/2018 0.4 0 - 2.80 % Final Granulocytes, immature (%) 03/08/2018 0.7 0.0 - 0.9 % Final ABSOLUTE NEUTS 03/08/2018 6.10 1.40 - 7.70 K/uL Final ABSOLUTE LYMPHS 03/08/2018 0.90 0.60 - 3.20 K/uL Final ABSOLUTE MONOS 03/08/2018 0.22 0.11 - 0.59 K/uL Final ABSOLUTE EOS 03/08/2018 0.04 0.01 - 0.50 K/uL Final ABSOLUTE BASOS 03/08/2018 0.03 0.00 - 0.08 K/uL Final Granulocytes, immature 03/08/2018 0.05 0.00 - 0.05 K/uL Final C REACTIVE PROTEIN 03/08/2018 8.9* 0.0 - 4.0 mg/L Final SODIUM 03/08/2018 139 133 - 146 mmol/L Final POTASSIUM 03/08/2018 5.0 3.3 - 5.1 mmol/L Final CHLORIDE 03/08/2018 102 96 - 108 mmol/L Final CO2 03/08/2018 25 21 - 35 mmol/L Final BUN 03/08/2018 23* 6 - 19 mg/dL Final CREATININE 03/08/2018 1.20 0.5 - 1.5 mg/dL Final GLUCOSE 03/08/2018 113* 70 - 99 mg/dL Final ALBUMIN 03/08/2018 4.3 3.9 - 4.8 g/dL Final TOTAL PROTEIN 03/08/2018 7.0 6.5 - 8.0 g/dL Final CALCIUM 03/08/2018 9.6 8.4 - 10.3 mg/dL Final ALKALINE PHOSPHATASE 03/08/2018 94 39 - 117 U/L Final TOTAL BILIRUBIN 03/08/2018 0.5 0.0 - 1.2 mg/dL Final AST 03/08/2018 16 0 - 37 U/L Final ALT 03/08/2018 9 0 - 40 U/L Final GLOBULIN 03/08/2018 2.7 1 - 4.8 g/dL Final EGFR 03/08/2018 59* >59 mL/min/1.73m2 Final If patient is black, multiply result by 1.159. Estimated glomerular filtration rate calculated using the CKD-EPI equation. ANION GAP 03/08/2018 17 10 - 20 mmol/L Final Assessment & Plan (10/25/2018 11:26 AM EDT): Patient's polyarticular rheumatoid arthritis is quite severe and very active but there are no extra-articular manifestations of disease. Because of repeated stump infections and the immunosuppressive effect of current medications in particular the interference of glucocorticoids with wound healing, we will attempt to taper prednisone by 1 mg every 2 weeks. We will continue on the same dose of methotrexate. Lab work was checked. Lab work will be checked in 2 weeks. No visits with results within 3 Month(s) from this visit. Latest known visit with results is: Hospital Outpatient Visit on 03/08/2018 Component Date Value Ref Range Status WBC 03/08/2018 7.34 3.40 - 11.20 K/uL Final RBC 03/08/2018 4.00* 4.50 - 5.50 M/uL Final HGB 03/08/2018 12.9* 13.0 - 17.0 g/dL Final HCT 03/08/2018 39.2* 40.0 - 51.0 % Final PLT 03/08/2018 190 130 - 400 K/uL Final MCV 03/08/2018 98.0 79.0 - 98.0 fL Final MCH 03/08/2018 32.3 27.0 - 34.8 pg Final MCHC 03/08/2018 32.9 31.5 - 36.0 g/dL Final RDW 03/08/2018 14.8* 10.8 - 14.6 % Final MPV 03/08/2018 10.8 9.4 - 12.4 fl Final NRBC 03/08/2018 0.00 0.00 /100 WBCs Final ABSOLUTE NRBC 03/08/2018 0.00 0.00 K/uL Final DIFF METHOD 03/08/2018 Auto Final NEUTS 03/08/2018 83.1* 45.30 - 77.70 % Final LYMPHS 03/08/2018 12.3 12.30 - 39.70 % Final MONOS 03/08/2018 3.0* 4.10 - 12.80 % Final EOS 03/08/2018 0.5 0 - 7.2 % Final BASOS 03/08/2018 0.4 0 - 2.80 % Final Granulocytes, immature (%) 03/08/2018 0.7 0.0 - 0.9 % Final ABSOLUTE NEUTS 03/08/2018 6.10 1.40 - 7.70 K/uL Final ABSOLUTE LYMPHS 03/08/2018 0.90 0.60 - 3.20 K/uL Final ABSOLUTE MONOS 03/08/2018 0.22 0.11 - 0.59 K/uL Final ABSOLUTE EOS 03/08/2018 0.04 0.01 - 0.50 K/uL Final ABSOLUTE BASOS 03/08/2018 0.03 0.00 - 0.08 K/uL Final Granulocytes, immature 03/08/2018 0.05 0.00 - 0.05 K/uL Final C REACTIVE PROTEIN 03/08/2018 8.9* 0.0 - 4.0 mg/L Final SODIUM 03/08/2018 139 133 - 146 mmol/L Final POTASSIUM 03/08/2018 5.0 3.3 - 5.1 mmol/L Final CHLORIDE 03/08/2018 102 96 - 108 mmol/L Final CO2 03/08/2018 25 21 - 35 mmol/L Final BUN 03/08/2018 23* 6 - 19 mg/dL Final CREATININE 03/08/2018 1.20 0.5 - 1.5 mg/dL Final GLUCOSE 03/08/2018 113* 70 - 99 mg/dL Final ALBUMIN 03/08/2018 4.3 3.9 - 4.8 g/dL Final TOTAL PROTEIN 03/08/2018 7.0 6.5 - 8.0 g/dL Final CALCIUM 03/08/2018 9.6 8.4 - 10.3 mg/dL Final ALKALINE PHOSPHATASE 03/08/2018 94 39 - 117 U/L Final TOTAL BILIRUBIN 03/08/2018 0.5 0.0 - 1.2 mg/dL Final AST 03/08/2018 16 0 - 37 U/L Final ALT 03/08/2018 9 0 - 40 U/L Final GLOBULIN 03/08/2018 2.7 1 - 4.8 g/dL Final EGFR 03/08/2018 59* >59 mL/min/1.73m2 Final If patient is black, multiply result by 1.159. Estimated glomerular filtration rate calculated using the CKD-EPI equation. ANION GAP 03/08/2018 17 10 - 20 mmol/L Final Assessment & Plan (07/25/2018 12:35 PM EDT): Patient with severe polyarticular seropositive erosive rheumatoid arthritis doing reasonably well. No extra articular manifestations of disease or vasculopathy. He will continue on 3 mg of prednisone twice daily as well as the methotrexate at 17.5 mg weekly. No evidence of liver toxicity. He is already had his flu and pneumonia vaccines. He is at high risk for infection being immunocompromised. He should have the shingles vaccine and I instructed him to speak to his primary care physician about this. He will have lab work drawn today. Previous lab work showing a BUN of 23 with a creatinine of 1.2 and an alkaline phosphatase of 94 with an AST of 16 and ALT of 9 a CRP of 8.9 a white count of 7300 with a normal differential hemoglobin of 12.9 with a hematocrit of 39.2. Call him with results of the lab work and pending my review, he will stay on the same dose of methotrexate. Think the best course of action is to not immunocompromised him further with a biologic agents. Only over the summer months I like to try to shave off some of his prednisone to get him down to 3 mg a day or less. Assessment & Plan (03/08/2018 12:24 PM EST): Severe, polyarticular, seropositive, erosive, polyarticular rheumatoid arthritis. Active but stable. No extra-articular manifestations of disease. No toxicity from medications. He will stay on 17.5 mg of methotrexate weekly with 1 mg of folic acid 6 days a week and 3 mg of prednisone twice daily. His narcotic analgesics were changed so he is no longer on OxyContin but is on a 12.5 mcg patch of fentanyl every 72 hours. This was changed by his primary care physician. Laboratory work from October was checked showing hemoglobin of 12.9 with a hematocrit of 39.8 and white count of 4100 with a normal differential and a ALT of 13 with an AST of 6 and stable renal function. Reactive protein was 11.1. He will have repeat blood work done today and I will call him with the results and change his methotrexate appropriately if necessary. Assessment & Plan (11/16/2017 5:05 PM EDT): Patient with polyarticular seropositive rheumatoid arthritis. He still has active polyarticular disease and secondary involvement of both shoulders with both rotator cuff tears which are chronic and glenohumeral osteoarthritis. He has secondary muscular weakness. As I explained to him today, he is not a candidate for total shoulder replacement no orders arthroscopic surgery: To be helpful nor do I believe increasing his antirheumatic medication will be helpful for this. Assistive devices for reaching over his head, strengthening of his rotator cuff tendons and musculature within the pain-free on current below his chest level and emphasizing both triceps and biceps strengthening with low hand weights not exceeding 5 pounds would be helpful here. Periodic injection therapy may be helpful for an acute flare. Pending reviewed his labs his medications will remain unchanged. As I explained to the patient and his today using more than 50% of this 28 minute visit, given his history of severe infection I am not comfortable reinitiating biologic therapy with her Orencia or biologic agent I don't think he needs it at this time. All of their questions were answered. I will call him with results of his lab work. Assessment & Plan (10/19/2017 12:59 PM EDT): Patient has active polyarticular seropositive erosive rheumatoid arthritis. We talked about the immunosuppressive effect of methotrexate, Orencia, and prednisone on the nonhealing cellulitic area on the left stump. After full discussion of risks and benefits and weighing a contribution of his medications to suppression of his disease activity versus the immunosuppressive effect placing him at risk for recurrent infections I decided the following with his agreement: Reduce prednisone from 6 mg to 5 mg daily. Increase methotrexate from 12.5-17.5 mg per week. Remain on 1 mg of folic acid daily. Avoid biologic agents at the present time. Resolved Problems Problem Noted Date Diagnosed Date Resolved Date Methotrexate, [facility], current use 07/02/2022 01/05/2024 Assessment & Plan (07/14/2022 7:27 PM EDT): I reviewed with him and his need for taking methotrexate on the same day of week along with proper hydration and daily folic acid. Hold methotrexate whenever running fever, feeling sick or taking antibiotics. Complete entire course of antibiotic and wait at least 48 hours after the last dose to make sure that infection does not recur before restarting methotrexate on its usual weekly schedule. Refrain from drinking alcohol while taking methotrexate. Monitor for unusual skin rashes, mucosal ulcerations, nausea, diarrhea, breathing difficulty etc. Make sure to inform any new MD, PA, COW W[employer] about chronic immunosuppression with methotrexate particularly in emergency situations. Call if problems or questions. PAD (peripheral artery disease) 06/06/2020 04/12/2024 Encounters Date Type Department Care Team Description 12/20/2024 11:30 AM EDT Home Care Visit [facility] [address] [place] [phone] Monae Orr, JUVE SN HOME VISIT 12/13/2024 11:00 AM EDT Home Care Visit [facility] [address] [place] [phone] Monae Orr RN SN HOME VISIT 12/11/2024 11:30 AM EDT Home Care Visit [facility] [address] [place] [phone] Monae Orr, RN SN HOME VISIT 12/06/2024 11:30 AM EDT Home Care Visit [facility] [address] [place] [phone] Monae Orr, RN SN HOME VISIT 12/01/2024 11:00 AM EDT Home Care Visit [facility] [address] [place] [phone] Monae Orr, RN SN HOME VISIT 11/27/2024 11:30 AM EDT Home Care Visit [facility] [address] [place] [phone] Monae Orr, RN SN HOME VISIT 11/27/2024 Refill [facility] Rheumatology [address] [place] [address] Chyna James MD Medication Refill 11/22/2024 10:00 AM EDT Home Care Visit [facility] [address] [place] [phone] Monae Orr, RN SN HOME VISIT 11/20/2024 Home Care Visit [facility] [address] [place] [phone] Ayah Valera CASE COMMUNICATION 11/17/2024 10:00 AM EDT Home Care Visit [facility] [address] [place] [phone] Monae Orr, RN SN OASIS START OF CARE (SOC) 11/17/2024 Plan of Care Documentation [facility] [address] [place] [phone] 11/16/2024 Home Care Visit [facility] [address] [place] [phone] Jeanine Wolf RN CASE COMMUNICATION 11/14/2024 Orders Only [facility] [address] [place] [phone] [facility] 10/27/2024 4:00 PM EDT Office Visit [facility] Rheumatology [address] [place] [address] Chyna James MD 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 with positive rheumatoid factor (Primary Dx); [facility] methotrexate user; Anticoagulated; History of left below knee amputation; Peripheral vascular disease; Gastroesophageal reflux disease with esophagitis without hemorrhage; Type 2 diabetes mellitus with other circulatory complication, without long-term current use of insulin; Chronic prescription opiate use 10/25/2024 Orders Only [facility] Rheumatology [address] [place] [address] Chyna James MD from Last 3 Months Immunizations Immunization Administration Dates Next Due COVID-19 (Pre-02/22) Moderna Vaccine, mRNA, PF 07/13/2020,06/08/2020 INFLUENZA, SPLIT VIRUS, TRIV ALENT W/ PRESERVATIVE IM 12/25/2011,01/16/2011 Influenza High-Dose Quadriva lent Preservative Free IM 02/24/2020 Influenza High-Dose Trivalen t Preservative Free IM 03/01/2024,03/01/2019,01/06/2018,01/05,01/02/2016,12/26/2014,01/04/2013 Influenza, Unspecified Formulation 01/11/2014 Pneumococcal conjugate PCV13 11/28/2014 Pneumococcal polysaccharide PPSV23 09/16/2011 Td (adult),2 Lf Tetanus Toxo id, PF, Adsorbed 05/03/2009 Tdap 02/05/2015 Zoster live 01/24/2013 Family History Medical History Relation Comments Lung cancer Brother Kidney cancer Father Breast cancer Mother Relation Status Comments Brother Father Mother Social History Tobacco Use Types Packs/Day Years Used Date Smoking Tobacco: Former Pipe Q uit: 06/16/2012 Smokeless Tobacco: Never Tobacco Cessation:Counseling Given: Not Answered Comments:PT SMOKES MECHANICAL CIGARETTES Alcohol Use Standard Drinks/Week Comments Not Currently 0 (1 standard drink = 0.6 oz pur e alcohol) Home Health Assessment: Transportation Answer Date Recorded Lack of Transportation (Medical) No 11/17/2024 Lack of Transportation (Non-Medical) No 11/17/2024 Patient Unable or Declines to Respond No 11/17/2024 Education Answer Date Recorded Are you interested in more education? Not on mitra e 08/28/2022 Are you concerned about learning? Not on file 08/28/2022 No 08/28/2022 No 08/28/2022 Digital Access Answer Date Recorded No 09/25/2022 No 09/25/2022 Reliable internet access at home? Not on file 09/25/2022 Device with a working camera? Not on file Intimate Partner Violence Answer Date R ecorded Are you denied basic needs s uch as food, clothing, or medical care? No 02/28/2024 In the past 12 months have y ou been in a relationship with a person who hurts, threatens, or tries to control you? No 02/28/2024 Are you denied basic needs s uch as food, clothing, or medical care? No 02/28/2024 In the past 12 months have y ou been in a relationship with a person who hurts, threatens, or tries to control you? No 02/28/2024 Sex and Gender Information Value Date Recorded Sex Assigned at Male 02/26/2019 7:27 PM EDT Legal Sex Male 10:10 PM EDT Gender Identity Male 02/26/2019 7:27 PM EDT Sexual Orientation Don't know 02/28/2024 5: 32 PM EDT Last Filed Vital Signs Vital Sign Reading Time Taken Comments Blood Pressure 116/70 12/20/2024 11:14 AM EDT Pulse 56 12/20/2024 11:14 AM EDT Temperature 36.8 C (98.2 F) 12/20/2024 11:14 AM EDT Respiratory Rate 16 12/20/2024 11:1 4 AM EDT Oxygen Saturation 96% 12/20/2024 11: 14 AM EDT Inhaled Oxygen Concentration - - Weight 86.6 kg (191 lb) 10/27/2024 4:19 PM EDT patient reported Height 188 cm (6' 2 ) 10/27/2024 4:19 PM EDT Body Mass Index 24.52 10/27/2024 4:19 PM EDT Plan of Treatment Upcoming Encounters Date Type Department Care Team (Late st Contact Info) Description 01/02/2025 1:00 PM EDT Office Visit [facility] [address] [place] [address] 3rd Floor, [address] [place] [address] Echo Mckeon DNP [address] [place] [phone] 01/03/2025 12:30 AM EDT Home Care Visit [facility] [address] [place], [place] [phone] Monae rOr, RN [address] [place] [phone] carlos 01/05/2025 Home Care Visit [facility] [address] [place] [phone] Monae Orr RN [address] [place] [address] carlos 01/10/2025 12:30 AM EDT Home Care Visit [facility] [address] [place] [phone] Monae Orr RN [address] [place] [address] carlos 01/12/2025 Appointment [facility] [address] [place] [phone] Monae Orr RN [address] [place] [address] carlos 03/01/2025 4:00 PM EDT Office Visit [facility] Rheumatology [address] [place] [address] Chyna James MD 22 [facility], [address] [place] [address] [email or web address] Health Maintenance Due Date Last Done Comments DEPRESSION SCREENING 1957 DIABETIC EYE EXAM 07/17/2017 ZOSTER VACCINES (2 of 2) 04/10/2021 02/13/2021, 01/02 HEMOGLOBIN A1C 04/12/2022 10/11/2021, 01/01, 01/13/2021, Additional history exists INFLUENZA VACCINE (#1) 2024 , 04/06/2023, 03/19/2022, Additional history exists COVID-19 VACCINE (7 - Moderna risk season) 2024 06/16/2024, 06/02/2022, 01/01/2021, Additional history exists Adult Td,Tdap Booster 02/05/2025 02/05/2015, 010 POTASSIUM LEVEL 03/01/2025 03/01/2024, 02/01, 02/28/2024, Additional history exists BLOOD PRESSURE 06/22/2025 12/20/2024 CREATININE LEVEL 10/24/2025 10/24/2024, , 04/11/2024, Additional history exists PNEUMOCOCCAL VACCINES (50+ years) Completed 02/13/2016, 11/28/2014, 09/16/2011 RSV VACCINE Completed 06/16/2024 HEPATITIS A VACCINES Aged Out No long er eligible based on patient's age to complete this topic HIB VACCINES Aged Out No longer eligi ble based on patient's age to complete this topic MENINGOCOCCAL VACCINES (ACWY) Aged Out No longer eligible based on patient's age to complete this topic MENINGOCOCCAL VACCINES (B) Aged Out N o longer eligible based on patient's age to complete this topic Medical Devices Implanted Type Area Senior Pl Sql Developer Device Identifier Shelf Expiration Date Model / Serial / Lot Implantable Monitor Implantable Monitor Prosthetic Joint Prosthetic Joint Left: Knee Stent Viabahn 8mm 5cm 120cm .018in Endoprosthesis Heparin Bioactive Surface - [id number] Implanted:Qty: 1 on 06/06/2020 by Trung Baac MD at [facility] Stent W L GORE [id number] 01/27/2022 [id number] / [id number] / Description:Right distal SFA Stent Absolute Pro 8mm 80mm 80cm .035in Otw Vascular Nickel Titanium Self-Expanding External Iliac Artery Tri Axial Radiopaque Marker Sterile Disp - [id number] Implanted:Qty: 1 on 06/06/2020 by Trung Baca MD at [facility] Stent STRONG VASCULAR [id number] 12/31/2020 [id number] / / [id number] Description:Right distal SFA Procedures Procedure Name Priority Date/Time Associated Diagnosis Comments CBC AND DIFFERENTIAL Routine 10/24/2024 2:03 PM EDT SEDIMENTATION RATE (ESR) Routine 10/24/2024 2:03 PM EDT C-REACTIVE PROTEIN Routine 10/24/2024 2: 03 PM EDT COMPREHENSIVE METABOLIC PANEL Routine 10/24/2024 2:03 PM EDT BASIC METABOLIC PANEL Routine 03/01/2024 6:22 AM EDT HEMOGLOBIN A1C Routine 10/11/2021 6:05 AM EDT from Last 3 Months or Most Recently Relevant to Health Maintenance Results * Comprehensive metabolic panel (10/24/2024 2:03 PM EDT) us Chyna James MD LAB BLOOD ORDERABLES Fin al Result * Sedimentation rate (ESR) (10/24/2024 2:03 PM EDT) us Chyna James MD LAB BLOOD ORDERABLES Fin al Result * CBC and differential (10/24/2024 2:03 PM EDT) Blood us Chyna James MD LAB BLOOD ORDERABLES Fin al Result * C-Reactive Protein (10/24/2024 2:03 PM EDT) us Chyna James MD LAB BLOOD ORDERABLES Fin al Result * (ABNORMAL) Basic metabolic panel (03/01/2024 6:22 AM EDT) SODIUM 136 133 - 146 mmol/L [facility] CHLORIDE 104 96 - 108 mmol/L [facility] POTASSIUM 4.4 3.3 - 5.1 mmol/L [facility] CO2 21 21 - 35 mmol/L [facility] BUN 31(H) 6 - 19 mg/dL [facility] CREATININE 1.50 0.5 - 1.5 mg/dL [facility] GLUCOSE 84 70 - 99 mg/dL [facility] CALCIUM 8.5 8.4 - 10.3 mg/dL [facility] EGFR 47(L) >59 mL/min/1.7 3m2 [facility] Comment:Estimated glomerular filtration rate calculated using the CKD-EPI refit equation. ANION GAP 15 10 - 20 mmol/L [facility] Blood 03/01/2024 6:22 AM EDT 03/01/2024 6:31 AM EDT us Francoise Conner MD LAB BLOOD ORDERABLES Final Resul t [address] [address] * Hemoglobin A1c (10/11/2021 6:05 AM EDT) HEMOGLOBIN A1C 5.3 4.3 - 5.8 % [facility] Blood 10/11/2021 6:05 AM EDT 10/11/2021 7:07 AM EDT us Avani Escoto DO LAB BLOOD ORDERABLES Final Re sult Performing Organization Address City/[facility]/ZIP Co de Phone Number [address] [address] from Last 3 Months or Most Recently Relevant to Health Maintenance Insurance [employer]EMENT [employer] MEDICARE HMO REPLACEMENT [employer] RE[employer]AC[employer] Advance Directives For more information, please contact: [phone] (9AM - 5PM [facility], Wednesday-Wednesday) Documents on File Type Date Recorded Patient Refinery Technician Sanju MACKENZIE 04/21/2021 4:56 PM * Full Code (Latest Code Status on File) Date Activated Date Inactivated Comments 02/28/2024 9:30 PM Question Answer Comments Code Status Confirmed With: Patient * Full Code Date Activated Date Inactivated Comments 10/10/2021 4:34 PM 02/28/2024 9:30 PM Question Answer Comments Code Status Confirmed With: Patient * Full Code Date Activated Date Inactivated Comments 06/04/2021 10:04 AM 10/10/2021 4:34 PM Question Answer Comments Code Status Confirmed With: Patient * Full Code Date Activated Date Inactivated Comments 06/06/2020 12:10 PM 06/04/2021 10:04 AM Question Answer Comments Code Status Confirmed With: Patient * Full Code Date Activated Date Inactivated Comments 06/06/2020 7:10 AM 06/06/2020 12:10 PM Question Answer Comments Code Status Confirmed With: Patient Care Teams Sheet Tester Relationship Specialty Start Date End Date Snow Cueto MD [address] [place] [phone] [email or web address] PCP - General 02/18/17 Zenon Bruce MD [email or web address] Historical LMR Provider 02/18/17 Chyna James MD [address] [place] [address], [facility] [address] [place] [address] [email or web address] Historical LMR Provider 02/18/17 Additional Source Comments The information contained in this document represents components of the legal health record. It is not the complete legal health record.[facility]
--- OUTSIDE RECORDS SUMMARY | 2024-12-27 14:50 | XMS_ITS | Encounter Summary ---
Author Organization [facility] Address [address] [facility] [address] [place] [address] Phone Care Team Providers Care Cashier Greeter Name Role Phone Snow Cueto MD Primary Care Provider [phone] Zenon Bruce MD Unavailable [email or web address] Chyna James MD Unavailable [phone] Encounter Details Date Type Department Care Team (Late st Contact Info) Description 02/02/2022 Procedure Pass [facility], Ct Scan - [address] [address] Social History Tobacco Use Types Packs/Day Years [...] Description 01/02/2025 1:00 PM EDT Office Visit [facility] [address] [place] [address] 3rd Floor, [address] [place] [address] Echo Mckeon DNP [address] [facility], [address] [place] [address] 01/03/2025 12:30 AM EDT Home [facility] [address] [place] [phone] Monae Orr, JUVE [address] [place] [phone] carlos 01/05/2025 Home Care Visit [facility] [address] [place] [phone] Monae Orr RN [address] [place] [phone] carlos 01/10/2025 12:30 AM EDT Home Care Visit [facility] [address] [place] [phone] Monae Orr RN [address] [place] [phone] carlos 01/12/2025 Appointment [facility] [address] [place] [phone] Monae Orr RN [address] [place] [address] carlos 03/01/2025 4:00 PM EDT Office Visit [facility] Rheumatology [address] [place] [address] Chyna James MD 22 [facility] [address] [place] [address] [email or web address] documented as of this encounter Visit Diagnoses Not on filedocumented in this encounter Additional Health Concerns Infection Onset Date Last Indicated Resolved Time CoV-Risk 11/26/2022 11/26/2022 12/07/2022 1:21 AM EDT CoV-Exposed Comment:Positive COVID-19 02/28/2024 02/28/2024 02/28/2024 7:2 9 PM EDT CoV-Risk 02/28/2024 02/28/2024 02/28/2024 7:29 PM EDT COVID-19 02/28/2024 02/28/2024 03/20/2024 1:24 AM EST documented as of this encounter Care Teams Cashier Greeter Relationship Specialty Start Date End Date Snow Cueto MD [address] [place] [phone] [email or web address] PCP - General 02/18/17 Zenon Bruce MD [email or web address] Historical LMR Provider 02/18/17 Chyna James MD [address] [place] [address] [address] [place] [address] [email or web address] Historical LMR Provider 02/18/17 documented as of this encounter Additional Source Comments The information contained in this document represents components of the legal health record. It is not the complete legal health record.[facility]
--- OUTSIDE RECORDS SUMMARY | 2024-12-27 14:51 | XMS_ITS | Encounter Summary ---
Author Organization [facility] Address [address] [place] [address] [place] [address] Phone Care Team Providers Care Letterer Name Role Phone Snow Cueto MD Primary Care Provider [phone] Snow Cueto MD Unavailable [phone] Zenon Bruce MD Unavailable [email or web address] Chyna James MD Unavailable [phone] Encounter Details Date Type Department Care Team (Late st Contact Info) Description 10/15/2020 Ancillary Orders Non-Invasive Cardiology [address] [place] [address] Beck Adam MD [address] [place] [phone] [email or web address] Atrial fibrillation, unspecified type Social History Tobacco Use Types Packs/Day Years [...] Description 01/02/2025 1:00 PM EDT Office Visit [facility] [address] 3rd Floor, [address] [place] [address] Echo Mckeon DNP 22 [facility], [address] [address] 01/03/2025 12:30 AM EDT Home Care Visit [facility] [address] [place] [phone] Monae Orr, JUVE [address] [place] [phone] [email or web address] 01/05/2025 Home Care Visit [facility] [address] [place] [phone] Monae Orr RN [address] [place] [address] [email or web address] 01/10/2025 12:30 AM EDT Home Care Visit [facility] [address] [place] [phone] Monae Orr, JUVE [address] [place] [address] [email or web address] 01/12/2025 Appointment [facility] [address] [place] [phone] Monae Orr RN [address] [place] [address] [email or web address] 03/01/2025 4:00 PM EDT Office Visit [facility] Rheumatology [address] [place] [address] Chyna James MD [address] [facility], [address] [place] [address] [email or web address] documented as of this encounter Results * DEVICE CHECK: ILR IN-HOME INTERROGATION (10/15/2020 9:22 AM EDT) Narrative Bobby Lan - 11/01/2020 10:37 AM EDT Remote interrogation of implantable loop recorder. Reason for implant: Atrial fibrillation Marketing Reporting Analyst: [employer] Symptoms: 0 Pauses: 0 Bradycardia: 7 reported episodes, see telephone encounter of 10/01 Tachycardia: 0 AT/AF: 4 episodes reported, SB w/premature beats, P waves visible w/incr gain Battery status: NIDHI Additional comments: Device functioning appropriately. Normal device function. Patient to follow-up for continued monitoring every 1 month. Report prepared by Jeferson Kulkarni RN Beck Adam MD [facility] ORDER DARIO Final Result documented in this encounter Visit Diagnoses Diagnosis Atrial fibrillation, unspecified type Atrial fibrillation, unspecified type documented in this encounter Additional Health Concerns [...] documented as of this encounter Care Teams Letterer Relationship Specialty Start Date End Date Snow Cueto MD [address] [place] [phone] [email or web address] PCP - General 10/19/17 Snow Cueto MD [address] [place] [address] [email or web address] Historical LMR Provider 02/18/17 2 Zenon Bruce MD [email or web address] Historical LMR Provider 02/18/17 Chyna James MD [address] [place] [address] [email or web address] Historical LMR Provider 02/18/17 documented as of this encounter Additional Source Comments The information contained in this document represents components of the legal health record. It is not the complete legal health record.[facility]
--- OUTSIDE RECORDS SUMMARY | 2024-12-27 14:51 | XMS_ITS | Encounter Summary ---
Author Organization [facility] Address [address] [facility] [address] [place] [address] Phone Care Team Providers Care Director Adult Name Role Phone Snow Cueto MD Primary Care Provider Snow Cueto MD Unavailable [phone] Zenon Bruce MD Unavailable [email or web address] Chyna James MD Unavailable [phone] Encounter Details Date Type Department Care Team (Late st Contact Info) Description 10/15/2020 Ancillary Orders [facility] [address] [facility] 3rd Floor, [address] [place] [address] Beck Adam MD [address] [place] [address] [email or web address] Social History Tobacco Use Types Packs/Day Years [...] Description 01/02/2025 1:00 PM EDT Office Visit [facility] [address] Floor, [address] [place] [address] Echo Mckeon DNP [address] [facility], [address] [address] 01/03/2025 12:30 AM EDT Home Care Visit [facility] [address] [place] [phone] Monae Orr, JUVE [address] [place] [phone] carlos 01/05/2025 Home Care Visit [facility] [address] [place] [phone] Monae Orr RN [address] [place] [phone] carlos 01/10/2025 12:30 AM EDT Home Care Visit [facility] [address] [place] [phone] Monae Orr, JUVE [address] [place] [address] carlos 01/12/2025 Appointment [facility] [address] [place] [phone] Monae Orr RN [address] [place] [address] carlos 03/01/2025 4:00 PM EDT Office Visit [facility] [address] [place] [address] Chyna James MD [address] [facility], [address] [place] [address] [email or web address] documented as of this encounter Visit [...] as of this encounter Care Teams Director Adult Relationship Specialty Start Date End Date Snow Cueto MD [address] [place] [phone] [email or web address] PCP - General 02/18/17 Snow Cueto MD [address] [place] [address] [email or web address] Historical LMR Provider 02/18/17 2 Zenon Bruce MD [email or web address] Historical LMR Provider 02/18/17 Chyna Jaems MD [address] [place] [address], [facility] [address] [place] [address] [email or web address] Historical LMR Provider 02/18/17 documented as of this encounter Additional Source Comments The information contained in this document represents components of the legal health record. It is not the complete legal health record.[facility]
--- NOTE | 2024-12-27 16:46 | EMG_ITS ---
Chief Complaint: numbness Reason for referral: polyneuropathy Referred by: Dr Ansari Procedure done: Nerve Conduction Study of the upper extremities. Bilateral median and ulnar motor and sensory studies were performed bilateral radial sensory studies were performed an EMG needle examination was performed. Impression: 1. 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
== END 2024-12-27 13:58 | disposition home or self-care (01) ==
LOC: HO.NEURO 13:57
PROVIDERS: PCP Family Medicine; Visit Provider Psychiatry & Neurology Neurology
DX: G56.13 Other lesions of median nerve, bilateral upper limbs (principal); G56.23 Lesion of ulnar nerve, bilateral upper limbs; G62.9 Polyneuropathy, unspecified; R20.0 Anesthesia of skin
CPT/HCPCS: 95886; 95913

== ENCOUNTER → 2024-12-27 16:46 | Outpatient (BNV) | payer MEDICARE, SELFPAY | PROVIDERS: PCP Family Medicine; Visit Provider Psychiatry & Neurology Neurology | DX: G56.03 Carpal tunnel syndrome, bilateral upper limbs (principal); G56.23 Lesion of ulnar nerve, bilateral upper limbs | CPT/HCPCS: 95886; 95913 ==

== ENCOUNTER 2025-01-20 09:15 | Outpatient (REF) | payer MEDICARE, SELFPAY ==
--- OUTSIDE RECORDS SUMMARY | 2025-01-15 11:30 | XMS_ITS | Encounter Summary ---
Author Organization [facility] Address [address] [facility] [address] [place] [address] Phone Care Team Providers Care Nematology Teacher Name Role Phone Snow Cueto MD Primary Care Provider [phone] Zenon Bruce MD Unavailable [email or web address] Chyna James MD Unavailable [phone] Reason for Visit * Auth/Cert (Routine) Specialty Diagnoses / Procedures Referred By Contshoshana t Referred To Contact Referral ID Status Reason Start Date Expiration Date Visits Re quested Visits Authorized [id number] 1 1 Encounter Details Date Type Department Care Team (Late st Contact Info) Description 01/15/2025 11:30 AM EDT Home Care Visit [facility] [address] [place] [phone] Monae Orr, RN [address] [place] [address] [email or web address] SN OASIS RECERTIFICATION/FUP Social History Tobacco Use Types Packs/Day Years [...] PM EDT documented as of this encounter Last Filed Vital Signs Vital Sign Reading Time Taken Comments Blood Pressure 120/62 01/15/2025 11:25 AM EDT Pulse 56 01/15/2025 11:25 AM EDT Temperature 36.6 C (97.9 F) 01/15/2025 11:25 AM EDT Respiratory Rate 18 01/15/2025 11:25 AM EDT Oxygen Saturation 95% 01/15/2025 11:25 AM EDT Inhaled Oxygen Concentration - - Weight - - Height - - Body Mass Index - - documented in this encounter Plan of Treatment Upcoming Encounters Date Type Department Care Team (Late st Contact Info) Description 01/24/2025 2:30 AM EDT Home [facility] Visit [facility] [address] [place] [phone] Monae Orr RN [address] [place] [address] carlos 01/26/2025 2:30 AM EDT Home Care Visit [facility] [address] [place] [phone] Monae Orr, RN [address] [place] [address] carlos 01/31/2025 2:00 AM EDT Home Care Visit [facility] [address] [place] [phone] Monae Orr, RN [address] [place] [address] carlos 02/02/2025 1:00 AM EDT Home Care Visit [facility] [address] [place] [phone] Monae Orr, RN [address] [place] [address] carlos 02/07/2025 1:00 AM EDT Home Care Visit [facility] [address] [place] [phone] Monae Orr, RN [address] [place] [address] carlos 02/09/2025 Home Care Visit [facility] [address] [place] [phone] Monae Orr, RN [address] [place] [address] carlos 02/14/2025 12:30 AM EDT Home Care Visit [facility] [address] [place] [phone] Monae Orr, RN [address] [place] [address] carlos 02/16/2025 12:30 AM EDT Home Care Visit [facility] [address] [place], [place] [phone] Monae Orr RN [address] [place] [address] carlos 03/01/2025 4:00 PM EDT Office Visit [facility] [address] [place] [address] Chyna James MD [address] [facility], [address] [place] [address] [email or web address] 07/13/2025 2:00 PM EDT Office Visit [facility] [address] [facility] 3rd Floor, [address] [place] [address] Albert Paulino MD [address] [place] [phone] documented as of this encounter Visit Diagnoses Not on filedocumented in this encounter Home Health Visit - Care Plan Visit Details Visit Type -SN OASIS RECERTI FICATION/FUP Discipline -Long Term Problems Problem Description Start Date Status Goals Interve ntions HH - Wound Disciplines: All Active Home Health Disciplines, Long Term 11/17/2024 Active 1 goal linked to scheduled/document ed intervention 1 problem intervention scheduled/document ed in this visit 2 goal interventions scheduled/document ed in this visit HH - Bleeding - Risk of Disciplines: All Active Home Health Disciplines 11/17/2024 Active 1 goal linked to scheduled/document ed intervention 1 goal intervention scheduled/document ed in this visit HH - Edema - Actual or Risk of Disciplines: All Active Home Health Disciplines 11/17/2024 Active 1 goal linked to scheduled/document ed intervention 1 goal intervention scheduled/document ed in this visit HH - Diabetes Disciplines: All Active Home Health Disciplines 11/17/2024 Active 1 goal linked to scheduled/document ed intervention 3 goal interventions scheduled/document ed in this visit HH - Medication Management Disciplines: All Active Home Health Disciplines 11/17/2024 Active 1 goal linked to scheduled/document ed intervention 2 goal interventions scheduled/document ed in this visit HH - Focus of Care and Teaching Disciplines: All Active Home Health Disciplines w/RD 11/17/2024 Active 1 goal linked to scheduled/document ed intervention 1 goal intervention scheduled/document ed in this visit HH - Emergency Planning - Knowledge of Disciplines: All Active Home Health Disciplines 11/17/2024 Active 1 goal linked to scheduled/document ed intervention 2 goal interventions scheduled/document ed in this visit HH - Infection - Actual or Risk of Disciplines: All Active Home Health Disciplines 11/17/2024 Active 1 goal linked to scheduled/document ed intervention 2 goal interventions scheduled/document ed in this visit HH - Falls - Risk of Disciplines: All Active Home Health Disciplines 11/17/2024 Active 1 goal linked to scheduled/document ed intervention 1 goal intervention scheduled/document ed in this visit HH - Standard of Care Disciplines: All Active Home Health Disciplines, Long Term 11/17/2024 Active 1 goal linked to scheduled/document ed intervention 4 goal interventions scheduled/document ed in this visit HH - Pain Disciplines: All Active Home Health Disciplines 11/17/2024 Active 1 goal linked to scheduled/document ed intervention 2 goal interventions scheduled/document ed in this visit Goals Goal Associated Problem Outcome Goal Met? Visit Notes HH - Demonstrate/verbalize wound care management, wound/lesion will be free from complications HH - Wound No HH - Demonstrate/verbalize knowledge of anticoagulation therapy and bleeding precautions HH - Bleeding - Risk of No HH - Demonstrate/verbalize knowledge of causes, impacts, and risks associated with edema HH - Edema - Actual or Risk of No HH - Knowledge and management of diabetes. HH - Diabetes No HH - Safe medication management, avoid unnecessary harm related to medication errors and/or interactions HH - Medication Management No HH - Communication and collaboration to achieve patient goals HH - Focus of Care and Teaching No HH - Knowledge of options for managing care in the event of an emergency related situation. HH - Emergency Planning - Knowledge of No HH - Patient will have no new infection; any new infection that occurs will be identified and treated promptly; existing infection will resolve without complication Description: Patient and caregiver(s) will demonstrate understanding of infection prevention, monitoring, and treatment as appropriate HH - Infection - Actual or Risk of No HH - Knowledge and management of fall prevention measures. HH - Falls - Risk of No HH - Achieve care management for a safe to home/community discharge from homecare HH - Standard of Care No HH - Frequency of pain interfering with patient's activity or movement will improve with activity or movement by discharge. Description: Pain will be managed over the course of care. Patient's acceptable level of pain is 3 - daily, but not constantly. HH - Pain No Interventions Intervention Associated Problem/Goal Status Variance Visit Notes HH - I/E wound care Description: Right plantar foot- 3x week Cleanse wound with normal saline Protect periwound with zinc Apply Aquacel AG to wound bed Cover wound with gauze and rhett Secure dressing with tape Compression/offloading : elevate Follow up in 2 weeks Problem:HH - Wound Goal:HH - Demonstrate/verbalize wound care management, wound/lesion will be free from complications Completed Instructions provided to: patient and caregiver Topic: wound care Response to teaching: patient and caregiver have complete understanding HH - Wound care: Description: Right heel- 3x week Cleanse wound with normal saline Protect periwound with zinc Apply Aquacel AG to wound bed Cover wound with gauze and rhett Secure dressing with tape Compression/offloading : elevate Follow up in 2 weeks Problem:HH - Wound Goal:HH - Demonstrate/verbalize wound care management, wound/lesion will be free from complications Completed HH - Other: Description: Glopped Shoe Problem:HH - Wound Completed HH - I/E anticoagulation therapy management and bleeding precautions related to Description: anticoagulation therapy, bleeding precautions and s/s of bleeding Problem:HH - Bleeding - Risk of Goal:HH - Demonstrate/verbalize knowledge of anticoagulation therapy and bleeding precautions Completed HH - Assess edema Problem:HH - Edema - Actual or Risk of Goal:HH - Demonstrate/verbalize knowledge of causes, impacts, and risks associated with edema Completed HH - I/E diabetes management Description: safety precautions with neurosensory deficits and s/s of hyper/hypoglycemia and self-monitoring Problem:HH - Diabetes Goal:HH - Knowledge and management of diabetes. Completed HH - Diabetic foot care including monitoring for the presence of skin lesions on the lower extremities and patient/caregiver education on proper foot care Problem:HH - Diabetes Goal:HH - Knowledge and management of diabetes. Completed HH - Assess blood sugar control, hypoglycemia/hyperglyc emia and diabetes-associated conditions (e.g., peripheral neuropathy) Problem:HH - Diabetes Goal:HH - Knowledge and management of diabetes. Completed HH - I/E medication management: administration, purpose, dosages, preparation, setup, scheduling, side effects, food/drug interactions, and potential complications as indicated Description: Update patient's copy of medication list as needed. Problem:HH - Medication Management Goal:HH - Safe medication management, avoid unnecessary harm related to medication errors and/or interactions Completed HH - Complete medication review every visit and medication reconciliation as indicated. Pharmacy information: Description: [facility] [place] Problem:HH - Medication Management Goal:HH - Safe medication management, avoid unnecessary harm related to medication errors and/or interactions Completed HH - Focus of care, teaching completed and plan for next visit Problem:HH - Focus of Care and Teaching Goal:HH - Communication and collaboration to achieve patient goals Completed Primary Clinical Focus this Visit & Instruction Provided: Recertify for continued wound care to right heel; also new wound to right toe. Pt follows with NEW every 2 weeks; next appt Mon 01/22. Wounds are healing well although slowly. No s/sx of infection. Pt is alert and oriented x3. Lives with his who is able to perform wound care on non-vna days. No recent falls. 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 No sob or coughing reported. Vss. Appetite fair. No gi/gu issues. Instruction Provided to: patient and caregiver Response to Instruction/Teaching : Is fully able to teach back topics as evidenced by verbalizes understanding. Plan for Next Visit Specific Focus & Education Needed: wound care New Orders: n/a Updated Discharge Plan: discharge when wounds healed. HH - I/E management of care in an urgent or emergency (ER) situation: When to call your Home Care Team/911, ER plans, supplies, evacuation, when to contact local ER officials and how to stay informed Problem:HH - Emergency Planning - Knowledge of Goal:HH - Knowledge of options for managing care in the event of an emergency related situation. Completed - Emergency planning assessment: the emergency plan, supplies needed, emergency contact numbers and an evacuation plan were reviewed Description: Patient and Caregiver is/are knowledgeable of emergency plans. Problem:HH - Emergency Planning - Knowledge of Goal:HH - Knowledge of options for managing care in the event of an emergency related situation. Completed HH - I/E infection Description: s/s of infection Problem:HH - Infection - Actual or Risk of Goal:HH - Patient will have no new infection; any new infection that occurs will be identified and treated promptly; existing infection will resolve without complication Completed HH - Assess infection risk and s/s Problem: - Infection - Actual or Risk of Goal:HH - Patient will have no new infection; any new infection that occurs will be identified and treated promptly; existing infection will resolve without complication Completed HH - I/E fall prevention measures Description: diagnosis/age related changes/prior history of falls: symptoms and side effects of illness/injury/history of falls placing patient at increased risk for falls. may include management of dizziness/orthostasis, environmental hazards: modification of environment to include clear walkways, secure animals, and move frequently used items within reach, use of equipment, impaired functional mobility: supervision for mobility/activity, appropriate footwear and as indicated safe use of assistive device(s) and pain affecting level of function: impact of pain on an increased risk of falls Problem: - Falls - Risk of Goal: - Knowledge and management of fall prevention measures. Completed HH - Assess vital signs, pulse oximetry, pain, and as indicated, orthostatic vital signs Description: use agency-specific parameters Problem: - Standard of Care Goal:HH - Achieve care management for a safe to home/community discharge from homecare Completed HH - Assess skin integrity Problem: - Standard of Care Goal:HH - Achieve care management for a safe to home/community discharge from homecare Completed - I/E management of skin integrity and non-wound impairment Description: s/s of pressure injury, pressure reduction, and injury prevention measures Problem: - Standard of Care Goal:HH - Achieve care management for a safe to home/community discharge from homecare Completed HH - Assess safety needs of patient (other than falls) Problem: - Standard of Care Goal:HH - Achieve care management for a safe to home/community discharge from homecare Completed HH - Assess pain Problem:HH - Pain Goal:HH - Frequency of pain interfering with patient's activity or movement will improve with activity or movement by discharge. Completed - I/E pain management Problem: - Pain Goal:HH - Frequency of pain interfering with patient's activity or movement will improve with activity or movement by discharge. Completed documented in this encounter Care Teams Nematology Teacher Relationship Specialty Start Date End Date Snow Cueto MD [address] [place] [phone] [email or web address] PCP - General 02/18/17 Zenon Bruce MD [email or web address] Historical LMR Provider 02/18/17 Chyna James MD [address] [place] [address] [email or web address] Historical LMR Provider 02/18/17 documented as of this encounter Additional Source Comments The information contained in this document represents components of the legal health record. It is not the complete legal health record.[facility]
--- OUTSIDE RECORDS SUMMARY | 2025-01-19 01:00 | XMS_ITS | Encounter Summary ---
Author Organization [facility] Address [address] [facility] [address] [place] [phone] Phone Care Team Providers Care Roadway Technician Name Role Phone Snow Cueto MD Primary Care Provider [phone] Zenon Bruce MD Unavailable [email or web address] Chyna James MD Unavailable [phone] Reason for Visit * Auth/Cert (Routine) Specialty Diagnoses / Procedures Referred By Contshoshana t Referred To Contact Referral ID Status Reason Start Date Expiration Date Visits Re quested Visits Authorized [id number] 1 1 Encounter Details Date Type Department Care Team (Late st Contact Info) Description 01/19/2025 1:00 AM EDT Home Care Visit [facility] [address] [place] [phone] O'Susy, Roselyn Palacios RN [address] [place] [address] [email or web address] SN HOME VISIT Social History Tobacco Use Types Packs/Day Years [...] Sign Reading Time Taken Comments Blood Pressure 100/60 01/19/2025 11:34 AM EDT Pulse 58 01/19/2025 11:34 AM EDT Temperature 36.1 C (96.9 F) 01/19/2025 11:34 AM EDT Respiratory Rate 16 01/19/2025 11:34 AM EDT Oxygen Saturation 99% 01/19/2025 11:34 AM EDT Inhaled Oxygen Concentration - - Weight - - Height - - Body Mass Index - - documented in this encounter Plan of Treatment Upcoming Encounters Date Type Department Care Team (Late st Contact Info) Description 01/24/2025 2:30 AM EDT Home Care Visit [facility] [address] [place] [phone] Monae Orr, RN [address] [place] [address] [email or web address] 01/26/2025 2:30 AM EDT Home Care Visit [facility] [address] [place] [phone] Monae Orr, RN [address] [place] [address] [email or web address] 01/31/2025 2:00 AM EDT Home Care Visit [facility] [address] [place] [phone] Monae Orr, RN [address] [place] [address] [email or web address] 02/02/2025 1:00 AM EDT Home Care Visit [facility] [address] [place] [phone] Monae Orr, RN [address] [place] [address] [email or web address] 02/07/2025 1:00 AM EDT Home Care Visit [facility] [address] [place] [phone] Monae Orr, RN [address] [place] [address] [email or web address] 02/09/2025 Home Care Visit [facility] [address] [place] [phone] Monae Orr, RN [address] [place] [address] [email or web address] 02/14/2025 12:30 AM EDT Home Care Visit [facility] [address] [place] [phone] Monae Orr, RN [address] [place] [address] carlos 02/16/2025 12:30 AM EDT Home Care Visit [facility] [address] [place], [place] [phone] Monae Orr RN [address] [place] [address] [email or web address] 03/01/2025 4:00 PM EDT Office Visit [facility] [address] [place] [address] Chyna James MD [address] [facility], [address] [place] [address] [email or web address] 07/13/2025 2:00 PM EDT Office Visit [facility] [address] [facility] 3rd Floor, [address] [place] [address] Albert Paulino MD [address] [place] [phone] [email or web address] documented as of this encounter Visit Diagnoses Not on filedocumented in this encounter Home Health Visit - Care Plan Visit Details Visit Type -SN HOME VISIT Discipline -Prison Problems Problem Description Start Date Status Goals Interve ntions HH - Wound Disciplines: All Active Home Health Disciplines, Prison 11/17/2024 Active 1 goal linked to scheduled/document ed intervention 1 problem intervention scheduled/document ed in this visit 1 goal intervention scheduled/document ed in this [...] Care Disciplines: All Active Home Health Disciplines, Prison 11/17/2024 Active 1 goal linked to scheduled/document ed intervention 1 problem intervention scheduled/document ed in this visit 2 goal interventions scheduled/document ed in this visit HH - Pain Disciplines: All Active Home Health Disciplines 11/17/2024 Active 1 goal linked to scheduled/document ed intervention 1 goal intervention scheduled/document ed in this visit Goals Goal Associated Problem Outcome Goal Met? Visit Notes HH - Demonstrate/verbalize wound care management, wound/lesion will be free from complications HH - Wound No HH - Knowledge and management of [...] Actual or Risk of No HH - Achieve care [...] provided to: patient and caregiver Topic: wound cleaned and dressed Response to teaching: patient has complete understanding HH - Other: Description: Glopped Shoe Problem:HH - Wound Completed HH - I/E diabetes management Description: safety precautions with neurosensory deficits and s/s of hyper/hypoglycemia and self-monitoring Problem: - Diabetes Goal: - Knowledge and management of diabetes. Completed HH - Diabetic foot care including monitoring for the presence of skin lesions on the lower extremities and patient/caregiver education on proper foot care Problem: - Diabetes Goal: - Knowledge and management of diabetes. Completed HH - I/E medication management: administration, purpose, dosages, preparation, setup, scheduling, side effects, food/drug interactions, and potential complications as indicated Description: Update patient's copy of medication list as needed. Problem: - Medication Management Goal: - Safe medication management, avoid unnecessary harm related to medication errors and/or interactions Completed - Complete medication review every visit and medication reconciliation as indicated. Pharmacy information: Description: [facility] [place] Problem: - Medication Management Goal: - Safe medication management, avoid unnecessary harm related to medication errors and/or interactions Completed - Focus of care, teaching completed and plan for next visit Problem: - Focus of Care and Teaching Goal: - Communication and collaboration to achieve patient goals Completed Primary Clinical Focus this Visit & Instruction Provided: Patient is alert, awake and oriented x 4. Patient denies pain at this time. Cleaned and dressed wound as per MD orders. Patient tolerated well. Educated patient as to s/sx of infection and when to notify MD. Medication was reveiewed. Instruction Provided to: patient and caregiver Response to Instruction/Teaching: Is fully able to teach back topics as evidenced by verbal recall. Plan for Next Visit Specific Focus & Education Needed: Dressing change reinforce teaching diabetic foot care and reporting s/sx of infection New Orders: No Updated Discharge Plan: when wounds heal - I/E management of care in an urgent or emergency (ER) situation: When to call your Home Care Team/911, ER plans, supplies, evacuation, when to contact local ER officials and how to stay informed Problem: - Emergency Planning - Knowledge of Goal: - Knowledge of options for managing care [...] an emergency related situation. Completed HH - Assess infection risk and s/s Problem:HH - Infection - Actual or Risk of Goal:HH - Patient will have no new infection; any new infection that occurs will be identified and treated promptly; existing infection will resolve without complication Completed HH - Assess vital signs, pulse oximetry, pain, and as indicated, orthostatic vital signs Description: use agency-specific parameters Problem:HH - Standard of Care Goal:HH - Achieve care management for a safe to home/community discharge from homecare Completed HH - Assess skin integrity Problem:HH - Standard of Care Goal:HH - Achieve care management for a safe to home/community discharge from homecare Completed HH - Complete Black scale at SOC and weekly Problem:HH - Standard of Care Completed HH - Assess pain Problem:HH - Pain Goal:HH - Frequency of pain interfering with patient's activity or movement will improve with activity or movement by discharge. Completed documented in this encounter Care Teams Roadway Technician Relationship Specialty Start Date End Date Snow Cueto MD [address] [place] [phone] [email or web address] PCP - General 02/18/17 Zenon Bruce MD [email or web address] Historical LMR Provider 02/18/17 Chyna James MD [address] [place] [address] [address] [place] [address] [email or web address] Historical LMR Provider 02/18/17 documented as of this encounter Additional Source Comments The information contained in this document represents components of the legal health record. It is not the complete legal health record.[facility]
--- NOTE | ~2025-01-20 | CT_ITS ---
CLINICAL HISTORY: G20.A1 - Parkinsons disease without dyskinesia, without mention of fluc... CT head without contrast Comparison: None provided Findings: No intra-axial mass, midline shift, hydrocephalus, or acute hemorrhage. There is moderate diffuse atrophy. There is no sinus or mastoid fluid. The orbits are within normal limits. There is no acute fracture. IMPRESSION: 1. No acute intracranial findings. This document has been electronically signed by: Figueroa Arriola MD on 01/22/2025 08:50:23
--- OUTSIDE RECORDS SUMMARY | 2025-01-20 09:18 | XMS_ITS | Clinical Summary ---
Author Organization [facility] Address [address] [place] [address] Care Team Providers Care Van Driver Name Role Phone Snow Cueto MD Primary Care Provider [phone] Allergies Active Allergy Reactions Criticality Noted Date [...] right, initial encoun ter 01/20/2021 Osteoporosis 08/20/2020 nursing home current use of anticoagulant 9 Overview (01/13/2021): [...] this. 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 Type [...] Health Maintenance Due Date Last Done Comments Advance Care Planning 1943 Foot Exam 1953 Lipid Panel 1953 Ophthalmology Exam 1953 Microalbumin/Creatinine Ratio Urine 1961 DTaP/Tdap/Td Vaccines (1 - Tdap) 1962 Pneumococcal Vaccines 50+ (1 of 2 - PCV) 1962 Zoster (Shingles) Vaccine (1 of 2) 1993 RSV Vaccine 60 years and older and Patients (1 - 1-dose 75+ series) 2018 Hemoglobin A1C 07/13/2021 01/13/2021, 10/10/2019 Creatinine with GFR 01/13/2022 01/13/2021 Influenza Vaccine 12/01/2024 03/01/2019, , 01/05/2017, Additional history exists COVID-19 Vaccine ( season) 2025 07/13/2020, 06/08/2020 Hepatitis B Vaccines Aged Out No long er eligible based on patient's age to complete this topic Medical Devices Implanted Type [employer] Device Identifier Shelf Expiration Date Model / Serial / Lot [id number] Screw Interference Bcmps 15mm 5.5mm Acl Ten[employer] Sterl - [id number] Implanted:Qty: 1 on 01/20/2021 by Antwon Lord MD at [facility] Screw Right: Foot [employer] 06/02/2024 [id number] / / [id number] 4.0x 26mm Cannulated Screw Implanted:Qty: 1 on 01/20/2021 by Antwon Lord MD at [facility] Screw Right: Foot [employer] [id number] / / Procedures Procedure Name Priority Date/Time [...] 4.8 <5.7 % 01/13/2021 11:03 PM EDT [facility] Comment: A1c% Interpretation 5.7 - 6.0 Increase risk of diabetes 6.1 - 6.4 Higher risk of diabetes > or = 6.5 Consistent with diabetes Diabetes Care, 33(Supp 1):S1-S61, 2009 Estimated Average Glucose 91 mg/dL 01/13/2021 11:03 PM EDT [facility] Blood specimen (specimen) Blood specimen / Unknown 01/13/2021 1:24 PM EDT 01/13/2021 8:15 PM EDT Damian Dockery APRN LAB BLOOD ORDERABLES Final Result HOSPITAL LAB [facility] [address] [place] [address] * (ABNORMAL) Comprehensive Metabolic Panel (01/13/2021 1:24 PM EDT) Glucose 90 65 - 99 mg/dL 01/13/2021 9:40 PM [facility] Comment:Fasting: <100 mg/dL, Non-Fasting: <200 mg/dL (ADA 2005) Blood Urea Nitrogen (BUN) 26(H) 8 - 21 mg/dL 01/13/2021 9:40 PM [facility] Creatinine 1.3 0.5 - 1.3 mg/dL 01/13/2021 9:40 PM [facility] eGFR 54(L) >59 01/13/2021 9:40 PM [facility] Comment:MDRD in mL/min/1.73 sq meters. GFR - 65 >59 01/13/2021 9:40 PM [facility] Comment:MDRD in mL/min/1.73 sq meters. Sodium 139 136 - 145 mmol/L 01/13/2021 9:40 PM [facility] Potassium 5.5(H) 3.4 - 5.3 mmol/L 01/13/2021 9:40 PM [facility] Chloride 105 98 - 107 mmol/L 01/13/2021 9:40 PM [facility] CO2 23 22 - 33 mmol/L 01/13/2021 9:40 PM [facility] Calcium 9.1 8.7 - 10.5 mg/dL 01/13/2021 9:40 PM [facility] Alkaline Phosphatase 254(H) 45 - 128 U/L 01/13/2021 9:40 PM [facility] Aspartate Aminotrans (AST) 67(H) 10 - 55 U/L 01/13/2021 9:40 PM [facility] Alanine Aminotrans (ALT) 59(H) 10 - 55 U/L 01/13/2021 9:40 PM [facility] Bilirubin, Total 0.7 0.2 - 1.0 mg/dL 01/13/2021 9:40 PM [facility] Protein, Total 6.8 6.3 - 8.3 g/dL 01/13/2021 9:40 PM EDT [facility] Albumin 3.8 3.4 - 4.8 g/dL 01/13/2021 9:40 PM EDT [facility] BUN/Creatinine Ratio 20 10.0 - 25.0 Ratio 01/13/2021 9:40 PM EDT [facility] Globulin 3.0 1.5 - 3.9 g/dL 01/13/2021 9:40 PM EDT [facility] Albumin/Globulin Ratio 1.3 1.0 - 3.0 Ratio 01/13/2021 9:40 PM EDT [facility] Anion Gap 11 7 - 17 01/13/2021 9:40 PM EDT [facility] Blood specimen (specimen) (Plasma/Serum) 01/13/2021 1:24 PM EDT 01/13/2021 8:15 PM EDT Damian Dockery INVESTIGATOR UTILITY BILL COMPLAINTS LAB BLOOD ORDERABLES Final Result [facility] [address] [address] from Last 3 Months or Most Recently Relevant to Health Maintenance Insurance [facility] MEDICARE [facility] MEDICARE Advance Directives * Full Code (Latest Code Status on File) Date Activated Date Inactivated Comments 01/20/2021 9:39 AM * Full Code Date Activated Date Inactivated Comments 01/20/2021 7:35 AM 01/20/2021 9:39 AM Care Teams Van Driver Relationship Specialty Start Date End Date Snow Cueto MD [address] [place] [address] PCP - General Family Medicine 01/01/21
--- OUTSIDE RECORDS SUMMARY | 2025-01-20 09:18 | XMS_ITS | Encounter Summary ---
Author Organization [facility] Address [address] [employer] [facility] [address] [place] [address] Phone Care Team Providers Care Pocketed Spring Assembler Name Role Phone Snow Cueto MD Primary Care Provider [phone] Zenon Bruce MD Unavailable [email or web address] Chyna James MD Unavailable [phone] Encounter Details Date Type Department Care Team (Late st Contact Info) Description 06/04/2021 Procedure Pass OR Admitting Dept - Virtual Department [address] [place] [address] Social History Tobacco Use Types Packs/Day Years [...] 01/24/2025 2:30 AM EDT Home Care Visit [facility] [address] [place] [phone] Monae Orr, RN [address] [place] [address] carlos 01/26/2025 2:30 AM EDT Home [facility] Visit [facility] [address] [place] [phone] Monae Orr, RN [address] [place] [address] carlos 01/31/2025 2:00 AM EDT Home Care Visit [facility] [address] [place] [phone] Monae Orr, RN [address] [place] [address] carlos 02/02/2025 1:00 AM EDT Home Care Visit [facility] [address] [place] [phone] Monae Orr, RN [address] [place] [address] carlos 02/07/2025 1:00 AM EDT Home Care Visit [facility] [address] [place] [phone] Monae Orr, RN [address] [place] [address] carlos 02/09/2025 Home Care Visit [facility] [address] [place] [phone] Monae Orr, RN [address] [place] [address] carlos 02/14/2025 12:30 AM EDT Home Care Visit [facility] [address] [place] [phone] Monae Orr, RN [address] [place] [address] carlos 02/16/2025 12:30 AM EDT Home Care Visit [facility] [address] [place], [place] [phone] Monae Orr RN [address] [place] [address] carlos 03/01/2025 4:00 PM EDT Office Visit [facility] [address] [place] [address] Chyna James MD [address] [facility], [address] [place] [address] [email or web address] 07/13/2025 2:00 PM EDT Office Visit [facility] [address] [facility] 3rd Floor, [address] [place] [address] Albert Paulino MD [address] [place] [address] documented as of this encounter Visit Diagnoses [...] documented as of this encounter Care Teams Pocketed Spring Assembler Relationship Specialty Start Date End Date Snow Cueto MD [address] [place] [phone] [email or web address] PCP - General 02/18/17 Zenon Bruce MD [email or web address] Historical LMR Provider 02/18/17 Chyna James MD [address] [place] [address], [place] [address] [email or web address] Historical LMR Provider 02/18/17 documented as of this encounter Additional Source Comments The information contained in this document represents components of the legal health record. It is not the complete legal health record.[facility]
--- OUTSIDE RECORDS SUMMARY | 2025-01-20 09:18 | XMS_ITS | Encounter Summary ---
Author Organization [facility] Address [address] [employer] [facility] [address] [place] [address] Phone Care Team Providers Care Assistant Professor Sculpture Name Role Phone Snow Cueto MD Primary Care Provider [phone] Snow Cueto MD Unavailable [phone] Zenon Bruce MD Unavailable [email or web address] Chyna James MD Unavailable [phone] Encounter Details Date Type Department Care Team (Late st Contact Info) Description 04/14/2021 Procedure Pass [facility], Ct Scan - [address] [address] Social History Tobacco Use Types Packs/Day Years [...] 04/14/2021 5:24 PM Poly Napoles RN * [place] Suicide Severity Rating Scale (Screener/Recent Self-Report) Question Answer Date of Assessment Author 1. Wish to be (Past 1 Month) No 5:24 PM Poly Napoles, JUVE 2. Non-Specific [...] Care Visit [facility] [address] [place] [phone] Monae Orr, JUVE [address] [place] [address] carlos 01/26/2025 2:30 AM EDT Home Care Visit [facility] [address] [place] [phone] Monae Orr, JUVE [address] [place] [address] carlos 01/31/2025 2:00 AM EDT Home Care Visit [facility] [address] [place] [phone] Monae Orr, JUVE [address] [place] [address] carlos 02/02/2025 1:00 AM EDT Home Care Visit [facility] [address] [place] [phone] Monae Orr, JUVE [address] [place] [address] carlos 02/07/2025 1:00 AM EDT Home Care Visit [facility] [address] [place] [phone] Monae Orr, JUVE [address] [place] [address] carlos 02/09/2025 Home Care Visit [facility] [address] [place] [phone] Monae Orr RN [address] [place] [address] carlos 02/14/2025 12:30 AM EDT Home Care Visit [facility] [address] [place] [phone] Monae Orr RN [address] [place] [address] carlos 02/16/2025 12:30 AM EDT Home Care Visit [facility] [address] [place] [phone] Monae Orr, JUVE [address] [place] [address] carlos 03/01/2025 4:00 PM EDT Office Visit [facility] [address] [place] [address] Chyna James MD [address] [place] [address], [address] [place] [address] [email or web address] 07/13/2025 2:00 PM EDT Office Visit [facility] [address] [facility] 3rd Floor, [address] [place] [address] Albert Paulino MD [address] [place] [address] documented as of this encounter Visit Diagnoses [...] documented as of this encounter Care Teams Assistant Professor Sculpture Relationship Specialty Start Date End Date Snow Cueto MD [address] [place] [phone] [email or web address] PCP - General 02/18/17 Snow Cueto MD [address] [place] [address] [email or web address] Historical LMR Provider 02/18/17 2 Zenon Bruce MD [email or web address] Historical LMR Provider 02/18/17 Chyna James MD [address] [place] [address], [facility] [address] [place] [address] [email or web address] Historical LMR Provider 02/18/17 documented as of this encounter Additional Source Comments The information contained in this document represents components of the legal health record. It is not the complete legal health record.[facility]
--- OUTSIDE RECORDS SUMMARY | 2025-01-20 09:18 | XMS_ITS | Encounter Summary ---
Author Organization [facility] Address [address] [place] [address] [place] [address] Phone Care Team Providers Care Fingerprint Clerk Name Role Phone Snow Cueto MD Primary Care Provider Snow Cueto MD Unavailable [phone] Zenon Bruce MD Unavailable [email or web address] Chyna James MD Unavailable [phone] Encounter Details Date Type Department Care Team (Late st Contact Info) Description 06/06/2020 Procedure Pass [facility] [address] [place] [address] Social History Tobacco Use Types Packs/Day Years [...] Visit [facility] [address] [place] [address] Monae Orr, RN [address] [place] [address] [email or web address] 01/26/2025 2:30 AM EDT Home Care Visit [facility] [address] [place] [phone] Monae Orr, RN [address] [place] [address] [email or web address] 01/31/2025 2:00 AM EDT Home Care Visit [facility] [address] [place] [phone] Monae Orr, RN [address] [place] [address] [email or web address] 02/02/2025 1:00 AM EDT Home Care Visit [facility] [address] [place] [phone] Monae Orr, RN [address] [place] [address] [email or web address] 02/07/2025 1:00 AM EDT Home Care Visit [facility] [address] [place] [phone] Monae Orr, RN [address] [place] [address] [email or web address] 02/09/2025 Home Care Visit [facility] [address] [place] [phone] Monae Orr, RN [address] [place] [address] [email or web address] 02/14/2025 12:30 AM EDT Home Care Visit [facility] [address] [place] [phone] Monae Orr, RN [address] [place] [address] [email or web address] 02/16/2025 12:30 AM EDT Home Care Visit [facility] [address] [place] [address] Monae Orr RN [address] [place] [address] [email or web address] 03/01/2025 4:00 PM EDT Office Visit [facility] [address] [place] [address] Chyna James MD [address] [facility], [address] [place] [address] [email or web address] 07/13/2025 2:00 PM EDT Office Visit [facility] 22 [facility] 3rd Floor, [address] [place] [address] Albert Paulino MD [address] [place] [address] documented as of this encounter Visit Diagnoses [...] documented as of this encounter Care Teams Fingerprint Clerk Relationship Specialty Start Date End Date Snow Cueto MD [address] [place] [phone] [email or web address] PCP - General 02/18/17 Snow Cueto MD [address] [place] [address] [email or web address] Historical LMR Provider 02/18/17 2 Zenon Bruce MD [email or web address] Historical LMR Provider 02/18/17 Chyna James MD [address] [place] [address], [facility] [address] [place] [address] [email or web address] Historical LMR Provider 02/18/17 documented as of this encounter Additional Source Comments The information contained in this document represents components of the legal health record. It is not the complete legal health record.[facility]
--- OUTSIDE RECORDS SUMMARY | 2025-01-20 09:18 | XMS_ITS | Encounter Summary ---
Author Organization [facility] Address [address] [facility] [address] [place] [address] Phone Care Team Providers Care High School Band Teacher Name Role Phone Snow Cueto MD Primary Care Provider [phone] Zenon Bruce MD Unavailable [email or web address] Chyna James MD Unavailable [phone] Encounter Details Date Type Department Care Team (Late st Contact Info) Description 01/18/2025 Episode Documentatio n Update [facility] [address] [place] [phone] Kavya William 30 [place] [address] [email or web address] Social History Tobacco Use Types Packs/Day Years [...] 2:30 AM EDT Home Care Visit [facility] [address] [place] [address] Monae Orr RN [address] [place] [address] carlos 01/26/2025 2:30 AM EDT Home Care Visit [facility] [address] [place], [place] [phone] Monae Orr RN [address] [place] [address] [email or web address] 01/31/2025 2:00 AM EDT Home Care Visit [facility] [address] [place], [place] [phone] Monae Orr RN [address] [place] [address] [email or web address] 02/02/2025 1:00 AM EDT Home Care Visit [facility] [address] [place] [phone] Monae Orr, JUVE [address] [place] [address] [email or web address] 02/07/2025 1:00 AM EDT Home Care Visit [facility] [address] [place] [phone] Monae Orr, JUVE [address] [place] [address] [email or web address] 02/09/2025 Home Care Visit [facility] [address] [place] [phone] Monae Orr RN [address] [place] [address] carlos 02/14/2025 12:30 AM EDT Home Care Visit [facility] [address] [place] [phone] Monea Orr, JUVE [address] [place] [address] [email or web address] 02/16/2025 12:30 AM EDT Home Care Visit [facility] [address] [place] [phone] Monae Orr, JUVE [address] [place] [address] [email or web address] 03/01/2025 4:00 PM EDT Office Visit [facility] Rheumatology [address] [place] [address] Chyna James MD [address] [facility], [address] [place] [address] [email or web address] 07/13/2025 2:00 PM EDT Office Visit [facility] [address] [place] [address] 3rd Floor, [address] [place] [address] Albert Paulino MD [address] [place] [address] [email or web address] documented as of this encounter Visit Diagnoses Not on filedocumented in this encounter Care Teams High School Band Teacher Relationship Specialty Start Date End Date Snow Cueto MD [address] [place] [phone] [email or web address] PCP - General 02/18/17 Zenon Bruce MD [email or web address] Historical LMR Provider 02/18/17 Chyna James MD [address] [place] [address], [address] [place] [address] [email or web address] Historical LMR Provider 02/18/17 documented as of this encounter Additional Source Comments The information contained in this document represents components of the legal health record. It is not the complete legal health record.[facility]
--- OUTSIDE RECORDS SUMMARY | 2025-01-20 09:18 | XMS_ITS | Encounter Summary ---
Author Organization [facility] Address [address] [facility] [address] [place] [address] Phone Care Team Providers Care Linoleum Mechanic Name Role Phone Snow Cueto MD Primary Care Provider [phone] Snow Cueto MD Unavailable [phone] Zenon Bruce MD Unavailable [email or web address] Chyna James MD Unavailable [phone] Encounter Details Date Type Department Care Team (Late st Contact Info) Description 03/01/2019 Ancillary Orders [facility] Orthopedics & Sports Medicine [address] [place] [address] [phone] Albert Bailey PA-C [address] [place] [address] Orthopedics & Sports Medicine, [facility] [place], [place] [phone] [email or web address] Right elbow pain Social History Tobacco Use [...] 2:30 AM EDT Home Care Visit [facility] [address] [place] [phone] Monae Orr, RN [address] [place] [address] carlos 01/26/2025 2:30 AM EDT Home Care Visit [facility] [address] [place] [phone] Monae Orr, RN [address] [place] [address] carlos 01/31/2025 2:00 AM EDT Home Care Visit [facility] [address] [place] [phone] Monae Orr, RN [address] [place] [address] carlos 02/02/2025 1:00 AM EDT Home Care Visit [facility] [address] [place] [phone] Monae Orr, RN [address] [place] [address] carlos 02/07/2025 1:00 AM EDT Home Care Visit [facility] [address] [place] [phone] Monae Orr, RN [address] [place] [address] carlos 02/09/2025 Home Care Visit [facility] [address] [place] [phone] Monae Orr, RN [address] [place] [address] carlos 02/14/2025 12:30 AM EDT Home Care Visit [facility] [address] [place] [phone] Monae Orr RN [address] [place] [address] carlos 02/16/2025 12:30 AM EDT Home Care Visit [facility] 30 [place] [phone] Monae Orr RN [address] [place] [address] carlos 03/01/2025 4:00 PM EDT Office Visit [facility] 22 [place] [address] Chyna James MD 22 [facility], [address] [place] [address] [email or web address] 07/13/2025 2:00 PM EDT Office Visit [facility] 22 [facility] 3rd Floor, [address] [place] [address] Albert Paulino MD [address] [place] [address] documented as of this encounter Results * XR ELBOW 3 OR MORE VIEWS (RIGHT) (03/01/2019 11:27 AM EDT) Narrative SYSTEMGENERATED, DOCUMENTATION - 03/01/2019 11:27 AM EDT This image report has been auto-finalized and has not been read by a Radiologist. Interpretation has been included in the provider encounter note for this date of service. us Albert SMALLSC IMG XR UPPER EXTREMITY Final Result documented [...] documented as of this encounter Care Teams Linoleum Mechanic Relationship Specialty Start Date End Date Snow Cueto MD [address] [place] [phone] [email or web address] PCP - General 02/18/17 Snow Cueto MD [address] [place] [address] [email or web address] Historical LMR Provider 02/18/17 2 Zenon Bruce MD [email or web address] Historical LMR Provider 02/18/17 Chyna James MD [address] [place] [address], [address] [place] [address] [email or web address] Historical LMR Provider 02/18/17 documented as of this encounter Additional Source Comments The information contained in this document represents components of the legal health record. It is not the complete legal health record.[facility]
--- OUTSIDE RECORDS SUMMARY | 2025-01-20 09:18 | XMS_ITS | Patient Health Record ---
Author Organization [facility] Address [address] [facility] [address] [place] [address] Care Team Providers Care Control Tower Radio Operator Name Role Phone Liane Miranda Unavailable [phone] AngelicaVaughn riveral Unavailable [phone] Figueroa Gracia Unavailable [phone] Allergies Allergen (clinical drug ingredient) Drug/Non Drug Allergy documented on EMR Reaction Allergy Type Onset Date Status sulfamethoxazole / trimethoprim Bactrim Unknown Drug Allergy Active pregabalin Lyrica Unknown Drug Allergy Active Reason For Referral No Information Medications Medication SIG (Take, Route, Frequency, Duration) Notes Start Date End Date Status Carbidopa-Levodopa 25-100 MG 2 tablets Orally 3 times a day Active Klayesta 190882 UNIT/GM 1 application Ex ternally Twice a day 03/23/2024 Active Ibuprofen 800 MG 1 tablet with food o r milk as needed Orally every 8 hrs 03/23/2024 Active Gabapentin 300 MG 1 capsule Orally Onc e a day; Duration: 30 day(s) 03/23/2024 Active fentaNYL 50 MCG/HR 1 patch to skin Transdermal 03/23/2024 Active EPINEPHrine 0.3 MG/0.3ML as directed Injection Active Eliquis 5 MG as directed Orally 03/23/2024 Active Diclofenac 03/23/2024 Active buPROPion HCl ER (SR) 150 MG 1 tablet in the morning Orally Once a day; Duration: 30 day(s) 03/23/2024 Active Simvastatin 20 MG 1 tablet in the even ing Orally Once a day; Duration: 30 day(s) 03/23/2024 Active Azithromycin 250 MG as directed Orally 03/23/2024 Active oxyCODONE HCl 10 MG 1 tablet as needed O rally every 6 hrs 03/23/2024 Active Ammonium Lactate 12 % 1 application Exte rnally Twice a day 03/23/2024 Active Naloxone HCl 0.4 MG/ML as directed Injection 03/23 Active Albuterol Sulfate HFA 108 (90 Base) MCG/ACT 1 puff as needed Inhalation every 4 hrs 03/23/2024 Active Methotrexate Sodium 2.5 MG as directed Orally 03/04 Active Social History Tobacco Use: Social History [...] W/U Status Risk Notes Problem Essential hypertension (06833173) Essential (primary) hypertension (I10) Active confirmed Problem Chronic obstructive pulmonary disease (58766951) Chronic obstructive pulmonary disease, unspecified (J44.9) Active confirmed Problem Chronic ulcer of foot (643322057) Non-pressure chronic ulcer of right heel and midfoot with fat layer exposed (L97.412) Active confirmed Problem Chronic ulcer of right foot (disorder) (51832716639665018) 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) Active confirmed Problem Chronic ulcer of skin (19145041) Non-pressure chronic ulcer of skin of other sites with unspecified severity (L98.499) Active confirmed Problem 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) Active confirmed Problem Peripheral vascular disease (524538045) Peripheral vascular disease (I73.9) Active confirmed Problem Gastroesophageal reflux disease (574233831) Gastroesophageal reflux disease, unspecified whether esophagitis present (K21.9) Active confirmed Problem Neuropathy (449418434) Neuropathy (G62.9) Active confirmed Problem Chronic kidney disease stage 3 (disorder) (584661818) Chronic kidney disease, stage 3 (N18.30) Active confirmed Problem Atrial fibrillation (25099169) Atrial fibrillation (I48.91) Active confirmed Problem Degenerative joint disease (570421686) Degenerative joint disease (M19.90) Active confirmed Problem Abdominal aortic aneurysm (652585119) Abdominal aortic aneurysm (I71.40) Active confirmed Problem Age-related macular degeneration (disorder) (361018869) Macular degeneration (H35.30) Active confirmed Vital Signs Heart Rate 52 /min 12/27/2024 Temperature 97.0 degrees Fahrenheit 01/08/2025 Respiratory Rate 16 /min 01/08/2025 Height-cm 187.96 cm 01/08/2025 Oximetry 99 % 12/27/2024 Blood pressure diastolic 48 mm Hg 01/08/2025 Weight-kg 85.73 kg 01/08/2025 Height 74 in 01/08/2025 Blood pressure systolic 96 mm Hg 01/08/2025 Weight 189 lbs 01/08/2025 BMI 24.26 kg/m2 01/08/2025 Encounters Encounter Location Date Provider Diagnosis [address] [address] 04/03/2024 Liane Miranda Peripheral vascular disease I73.9 ; Non-pressure chronic ulcer of other part of right foot with necrosis of muscle L97.513 ; Non-pressure chronic ulcer of right heel and midfoot with fat layer exposed L97.412 and Neuropathy G62.[address] [address] 04/10/2024 Liane Miranda Peripheral vascular disease I73.9 ; Non-pressure chronic ulcer of other part of right foot with necrosis of muscle L97.513 ; Non-pressure chronic ulcer of right heel and midfoot with fat layer exposed L97.412 and Neuropathy G62.[address] [address] 04/17/2024 Liane Miranda Peripheral vascular disease I73.9 ; Non-pressure chronic ulcer of other part of right foot with necrosis of muscle L97.513 ; Non-pressure chronic ulcer of right heel and midfoot with fat layer exposed L97.412 ; Neuropathy G62.9 and Cellulitis of right leg L03.[address] [address] 04/24/2024 Liane Miranda Peripheral vascular disease I73.9 ; Non-pressure chronic ulcer of other part of right foot with necrosis of muscle L97.513 ; Non-pressure chronic ulcer of right heel and midfoot with fat layer exposed L97.412 ; Neuropathy G62.9 and Cellulitis of right leg L03.[address] [address] 05/08/2024 Liane Miranda Peripheral vascular disease I73.9 ; Non-pressure chronic ulcer of other part of right foot with necrosis of muscle L97.513 ; Non-pressure chronic ulcer of right heel and midfoot with fat layer exposed L97.412 and Neuropathy G62.[address] [address] 05/15/2024 Liane Miranda Peripheral vascular disease I73.9 ; Non-pressure chronic ulcer of other part of right foot with necrosis of muscle L97.513 ; Non-pressure chronic ulcer of right heel and midfoot with fat layer exposed L97.412 and Neuropathy G62.[address] [address] 05/29/2024 Liane Miranda Peripheral vascular disease I73.9 ; Non-pressure chronic ulcer of other part of right foot with necrosis of muscle L97.513 ; Non-pressure chronic ulcer of right heel and midfoot with fat layer exposed L97.412 and Neuropathy G62.[address] [address] 06/26/2024 Liane Miranda Peripheral vascular disease I73.9 ; Non-pressure chronic ulcer of other part of right foot with necrosis of muscle L97.513 ; Non-pressure chronic ulcer of right heel and midfoot with fat layer exposed L97.412 and Neuropathy G62.[address] [address] 07/10/2024 Liane Miranda Peripheral vascular disease I73.9 ; Non-pressure chronic ulcer of other part of right foot with necrosis of muscle L97.513 and Non-pressure chronic ulcer of right heel and midfoot with fat layer exposed L97.[address] [address] 07/24/2024 Figueroa Gracia Peripheral vascular disease I73.9 ; Non-pressure chronic ulcer of other part of right foot with necrosis of muscle L97.513 and Non-pressure chronic ulcer of right heel and midfoot with fat layer exposed L97.[address] [address] 11/13/2024 Lianemoose Miranda Peripheral vascular disease I73.9 and Non-pressure chronic ulcer of right heel and midfoot with fat layer exposed L97.[address] [address] 11/20/2024 Liane Miranda Peripheral vascular disease I73.9 and Non-pressure chronic ulcer of right heel and midfoot with fat layer exposed L97.[address] [address] 12/04/2024 Lianemoose Miranda Peripheral vascular disease I73.9 and Non-pressure chronic ulcer of right heel and midfoot with fat layer exposed L97.[address] [address] 12/18/2024 Figueroa Gracia Peripheral vascular disease I73.9 and Non-pressure chronic ulcer of right heel and midfoot with fat layer exposed L97.[address] [address] 12/27/2024 Jg Mello Peripheral vascular disease I73.9 ; Non-pressure chronic ulcer of right heel and midfoot with fat layer exposed L97.412 and Blister (nonthermal), right foot, initial encounter S90.821A [address] [address] 01/08/2025 Liane Miranda Peripheral vascular disease I73.9 ; Non-pressure chronic ulcer of right heel and midfoot with fat layer exposed L97.412 ; Non-pressure chronic ulcer of other part of right foot with fat layer exposed L97.512 and Acquired absence of left leg below knee Z89.[address] [address] 03/23/2024 Liane Miranda [address] [address] 11/14/2024 Liane Miranda [address] [address] 11/14/2024 Liane Miranda [address] [address] 11/14/2024 Liane Miranda [facility] [address] [place] [address] 11/17/2024 Liane Miranda Assessments Encounter Date Diagnosis [...] and the heel. His will call Leon caceres Continuous Improvement Facilitator to talk with him about options. He [...] the heel. His will call Leon the Continuous Improvement Facilitator to talk with him about options. He [...] I answered all questions to their satisfaction. ILiane-Daisy, examined, evaluated, and treated the patient. Dr. [...] Doxycycline and I reviewed potential adverse effects. [place] back to Dr. Bella his Contact Representative as he may need 5th toe ampuation. [...] questions to their satisfaction. I, Liane Miranda MACHINE STEMMER-C, examined, evaluated, and treated the patient. Dr. [...] covered with a dry dressing. I, Liane POLLACK, examined, evaluated , and treated the patient. [...] a dressing to help cushion these areas. ILiane, examined, evaluated , and treated the patient. [...] to help cushion these areas. I, Liane POLLACK, examined, evaluated , and treated the patient. [...] to help cushion these areas. I, Liane POLLACK, examined, evaluated , and treated the patient. [...] 12/18/2024 Peripheral vascular disease (ICD-10 - I73.9) 12/27/2024 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) 12/27/2024 Peripheral vascular disease (ICD-10 - I73.9) 01/08/2025 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) 01/08/2025 Peripheral vascular disease (ICD-10 - I73.9) Kehinde presents for with his today for recurrent right posterior heel ulceration. Cont Aquacel Ag to both ulcers. I reassured that there is no sign of infection AND both measure smaller. After examination, I discussed the indication of debridement and he was agreeable. I then performed debridement to remove devitalized tissues as outlined. He tolerated procedure well. The wound site were then cleansed with wound cleanser and thereafter, a dressing as noted above was applied onto the wound site and zinc to mignon wound areas and dcd. I assessed his Globoped heel offloading shoe, and I see that he will need a new one as the area that there is wearing to the sole that the 1st MT lays over. This is how he walks and so they should replace this shoe stephen. We reviewed good skin care and diabetic foot care in detail and reulceration prevention. We talked about options for pressure, friction and shearing. I, Liane Miranda MACHINE STEMMER-C, examined, evaluated , and treated the patient. Dr. Paul Mello was available for any questions or concerns that I may have had. 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 I confirm the above care provided was rendered under my general supervision as initially planned and subsequently discussed and supervised by me. 04/24/2024 Other Jg Rogers MD confirm that YG Silvestre-CONCEPCION, CWS understands and adheres to the guidelines of the established clinical protocols in the office. I confirm the above care provided was rendered under my general supervision as initially planned and subsequently discussed and supervised by me. 05/08/2024 Other Jg Rogers MD confirm that YG Silvestre-CARI JAVIERS understands and adheres to the guidelines of the established clinical protocols in the office. I confirm the above care provided was rendered under my general supervision as initially planned and subsequently discussed and supervised by me. 05/15/2024 Other Jg Rogers MD confirm that YG Silvestre-CONCEPCION CWS understands and adheres to the guidelines of the established clinical protocols in the office. I confirm the above care provided was rendered under my general supervision as initially planned and subsequently discussed and supervised by me. 05/29/2024 Other Jg Rogers MD confirm that YG Silvestre-CONCEPCION, CWS understands and adheres to the guidelines of the established clinical protocols in the office. I confirm the above care provided was rendered under my general supervision as initially planned and subsequently discussed and supervised by me. 06/26/2024 Other Jg Rogers MD confirm that YG Silvestre-CONCEPCION, CWS understands and adheres to the guidelines of the established clinical protocols in the office. I confirm the above care provided was rendered under my general supervision as initially planned and subsequently discussed and supervised by me. 07/10/2024 Other Jg Rogers MD confirm that YG Silvestre-CONCEPCION, CWS understands [...] the findings in the note. I, Figueroa Gracia MSN, SHIP'S CARPENTER, MACHINE STEMMER-C, examined, evaluated , and treated the patient. Dr. Paul Mello was available for any questions or concerns that I may have had. Jg Rogers MD confirm that Figueroa Gracia MSN, SHIP'S CARPENTER, MACHINE STEMMER-C understands and adheres to the guidelines of [...] questions or concerns I, Figueroa Gracia, MSN, SHIP'S CARPENTER, MACHINE STEMMER-C, examined, evaluated , and treated the patient. [...] Mello MD confirm that Figueroa Gracia, MSN, SHIP'S CARPENTER, MACHINE STEMMER-C understands and adheres to the guidelines of the established clinical protocols in the office. I confirm the above care provided was rendered under my general supervision as initially planned and subsequently discussed and supervised by me. 12/27/2024 Jeff Posadas was last seen in the office on December 18 and was scheduled for a follow appointment on February 07 however he contacted the office last week as he had developed a blister at the base of his amputated right great toe. His noticed it and became concerned. She contacted the office for an urgent appointment. She states that she and the VNA have been performing his dressing changes regularly and that he has otherwise remained stable. She believes that the wound occurred as a result of his offloading shoe. The involved area was rubbing along the top edge of the offloading shoe and thereby causing the development of the blister. On exam today he is noted to be afebrile, we then removed the dressings and I examined the wound areas. The new area on the base of his amputated right great toe has no evidence of any surrounding erythema. There is no purulent drainage and no foul order present. There is a thick callus tissue and evidence of an open area. After examining the area I discussed with the Randolph rationale for debridement of the area. I then proceeded to debride the wound site and remove devitalized tissue which included thick callus tissue. He tolerated the procedure well. At this time I recommended that we apply Hydrofera Blue onto the wound base along with zinc to the periwound area and cover it with a dry dressing. I then examined the chronic wound on the lateral aspect of his right foot it is showing signs of improvement there was dry fibrous tissue along the edges and evidence of devitalized tissue covering the base. After examining the area I performed debridement of this wound site also as outlined. He tolerated the procedure. I recommended that we also apply Hydrofera Blue to this area along with zinc to the periwound areas. Both sites were then covered with a dry dressing. He will continue to have dressing change performed regularly by the VNA. I also encouraged him to offload the site. 01/08/2025 Other I, Jg Mello MD confirm that YG Silvestre-CONCEPCION, CWZonia understands and adheres to the guidelines of the established clinical protocols in the office. I confirm the above care provided was rendered under my general supervision as initially planned and subsequently discussed and supervised by me. Plan Of Treatment Next Appt Details Provider Name:Liane arndt, 01/22/2025 11:00:00 AM, [address] [place], [address], Insurance Providers Payer Name Payer Address Payer Phone Subscriber Number Group Number Insured Name Patient Relationship to Insured Coverage Start Date Coverage End Date [facility] 1 [facility] [address] [place], [place] [id number] [place] Nayak Self - patient is [...]
--- OUTSIDE RECORDS SUMMARY | 2025-01-20 09:18 | XMS_ITS | Encounter Summary ---
Author Organization [facility] Address [address] [place] [address] [place] [phone] Phone Care Team Providers Care Developer Programmer Name Role Phone Snow Cueto MD Primary Care Provider [phone] Zenon Bruce MD Unavailable [email or web address] Chyna James MD Unavailable [phone] Encounter Details Date Type Department Care Team (Late st Contact Info) Description 07/30/2021 Transcribe Orders Virtual Department [address] [place] [address] Humphrey Miranda NP [address] [place] [address] 2_[place] [address] [email or web address] Type 2 diabetes mellitus with foot ulcer, unspecified whether parts counterman insulin use (Primary Dx); Pain of foot, [...] 2:30 AM EDT Home Care Visit [facility] [address] [place] [phone] Monae Orr, RN [address] [place] [address] [email or web address] 01/26/2025 2:30 AM EDT Home [facility] Visit [facility] [address] [place] [phone] Monae Orr, RN [address] [place] [address] [email or web address] 01/31/2025 2:00 AM EDT Home Care Visit [facility] [address] [place] [phone] Monae Orr, RN [address] [place] [address] [email or web address] 02/02/2025 1:00 AM EDT Home Care Visit [facility] [address] [place] [phone] Monae Orr, RN [address] [place] [address] [email or web address] 02/07/2025 1:00 AM EDT Home Care Visit [facility] [address] [place] [phone] Monae Orr, RN [address] [place] [address] [email or web address] 02/09/2025 Home Care Visit [facility] [address] [place] [phone] Monae Orr, RN [address] [place] [address] [email or web address] 02/14/2025 12:30 AM EDT Home Care Visit [facility] [address] [place] [address] Monae Orr RN [address] [place] [address] [email or web address] 02/16/2025 12:30 AM EDT Home Care Visit [facility] [address] [place] [address] Monae Orr RN [address] [place] [address] [email or web address] 03/01/2025 4:00 PM EDT Office Visit [facility] [address] [place] [address] Chyna James MD [address] [facility], [address] [place] [address] [email or web address] 07/13/2025 2:00 PM EDT Office Visit [facility] [address] [facility] 3rd Floor, [address] [place] [address] Albert Paulino MD [address] [place] [phone] documented as of this encounter Results * XR FOOT 3 OR MORE VIEWS (RIGHT) (07/30/2021 4:13 PM EDT) Anatomical Region Laterality Modality Foot Right Computed Radiogr aphy 07/31/2021 9:25 AM EDT Impressions 07/31/2021 9:29 AM EDT Progressive soft tissue swelling with apparent plantar-lateral midfoot ulcer without specific radiographic findings of acute osteomyelitis or other significant change since 04/14/2021. POS - [id number] Narrative 07/31/2021 9:29 AM EDT COMPARISON: 04/14/2021 [...] orother significant change since 04/14/2021. POS - [id number] Humphrey Miranda CARTOGRAPHIC ENGINEER IMG XR LOWER EXTREMIT Y Final Result documented in this encounter Visit Diagnoses Diagnosis Type 2 diabetes mellitus with foot ulcer, unspecified whether parts counterman insulin use- Primary Pain of foot, unspecified laterality Type 2 diabetes mellitus with foot ulcer, unspecified whether parts counterman insulin use Pain of foot, unspecified laterality [...] documented as of this encounter Care Teams Developer Programmer Relationship Specialty Start Date End Date Snow Cueto MD [address] [place] [phone] [email or web address] PCP - General 02/18/17 Zenon Bruce MD [email or web address] Historical LMR Provider 02/18/17 Chyna James MD [address] [place] [phone] [email or web address] Historical LMR Provider 02/18/17 documented as of this encounter Additional Source Comments The information contained in this document represents components of the legal health record. It is not the complete legal health record.[facility]
--- OUTSIDE RECORDS SUMMARY | 2025-01-20 09:18 | XMS_ITS | Encounter Summary ---
Author Organization [facility] Address 399 [facility] [address] [place] [address] Phone Care Team Providers Care College Teacher Name Role Phone Snow Cueto MD Primary Care Provider [phone] Zenon Bruce MD Unavailable [email or web address] Chyna James MD Unavailable [phone] Encounter Details Date Type Department Care Team (Late st Contact Info) Description 07/16/2021 Procedure Pass Non-Invasive Cardiology [address] [place] [address] Social History Tobacco Use Types Packs/Day Years [...] AM EDT Home Care Visit [facility] 30 [place] [phone] Monae Orr RN 168 [place] [address] carlos 01/26/2025 2:30 AM EDT Home Care Visit [facility] [address] [place] [phone] Monae Orr, RN [address] [place] [address] carlos 01/31/2025 2:00 AM EDT Home Care Visit [facility] [address] [place] [phone] Monae Orr, RN [address] [place] [address] carlos 02/02/2025 1:00 AM EDT Home Care Visit [facility] [address] [place] [phone] Monae Orr, RN [address] [place] [address] carlos 02/07/2025 1:00 AM EDT Home Care Visit [facility] [address] [place] [phone] Monae Orr, RN [address] [place] [address] carlos 02/09/2025 Home Care Visit [facility] [address] [place] [phone] Monae Orr, RN [address] [place] [address] carlos 02/14/2025 12:30 AM EDT Home Care Visit [facility] [address] [place] [phone] Monae Orr, RN [address] [place] [address] carlos 02/16/2025 12:30 AM EDT Home Care Visit [facility] [address] [place], [place] [phone] Monae Orr RN [address] [place] [address] carlos 03/01/2025 4:00 PM EDT Office Visit [facility] 22 [place] [address] Chyna James MD 22 [facility], [address] [place] [address] [email or web address] 07/13/2025 2:00 PM EDT Office Visit [facility] 22 [facility] 3rd Floor, [address] [place] [address] Albert Paulino MD [address] [place] [address] documented as of this encounter Visit Diagnoses [...] documented as of this encounter Care Teams College Teacher Relationship Specialty Start Date End Date Snow Cueto MD [address] [place] [phone] [email or web address] PCP - General 02/18/17 Zenon Bruce MD [email or web address] Historical LMR Provider 02/18/17 Chyna James MD [address] [place] [address] [email or web address] Historical LMR Provider 02/18/17 documented as of this encounter Additional Source Comments The information contained in this document represents components of the legal health record. It is not the complete legal health record.[facility]
--- OUTSIDE RECORDS SUMMARY | 2025-01-20 09:18 | XMS_ITS | Encounter Summary ---
Author Organization [facility] Address 399 [facility] [address] [place] [address] Phone Care Team Providers Care Solar System Designer Name Role Phone Snow Cueto MD Primary Care Provider Snow Cueto MD Unavailable [phone] Zenon Bruce MD Unavailable [email or web address] Chyna James MD Unavailable [phone] Encounter Details Date Type Department Care Team (Latest Contact Info) Description 04/28/2017 Ancillary Orders [facility] [address] [facility] 3rd Floor, [address] [place] [address] Iram Roy PA [address] [place] [address] Atrial fibrillation and flutter Social History Tobacco [...] 2:30 AM EDT Home Care Visit [facility] 30 [place] [address] Monae Orr, RN [address] [place] [address] [email or web address] 01/26/2025 2:30 AM EDT Home Care Visit [facility] 30 [place] [address] Monae Orr, RN [address] [place] [address] [email or web address] 01/31/2025 2:00 AM EDT Home Care Visit [facility] [address] [place] [phone] Monae Orr, RN [address] [place] [address] [email or web address] 02/02/2025 1:00 AM EDT Home Care Visit [facility] [address] [place] [phone] Monae Orr, RN [address] [place] [address] [email or web address] 02/07/2025 1:00 AM EDT Home Care Visit [facility] [address] [place] [phone] Monae Orr, RN [address] [place] [address] [email or web address] 02/09/2025 Home Care Visit [facility] [address] [place] [phone] Monae Orr, RN [address] [place] [address] [email or web address] 02/14/2025 12:30 AM EDT Home Care Visit [facility] [address] [place] [phone] Monae Orr RN [address] [place] [address] carlos 02/16/2025 12:30 AM EDT Home Care Visit [facility] 30 [place] [address] Monae Orr RN [address] [place] [address] carlos 03/01/2025 4:00 PM EDT Office Visit [facility] Rheumatology 22 [place] [address] Chyna James MD 22 [facility], [address] [place] [address] [email or web address] 07/13/2025 2:00 PM EDT Office Visit [facility] [address] [facility] 3rd Floor, [address] [place] [address] Albert Paulino MD [address] [place] [place] [address] documented as of this encounter Visit Diagnoses [...] documented as of this encounter Care Teams Solar System Designer Relationship Specialty Start Date End Date Snow Cueto MD [address] [place] [address] [email or web address] PCP - General 02/18/17 Snow Cueto MD [address] [place] [address] [email or web address] Historical LMR Provider 02/18/17 2 Zenon Bruce MD [email or web address] Historical LMR Provider 02/18/17 Chyna James MD [address] [place] [address], [address] [place] [address] [email or web address] Historical LMR Provider 02/18/17 documented as of this encounter Additional Source Comments The information contained in this document represents components of the legal health record. It is not the complete legal health record.[facility]
--- OUTSIDE RECORDS SUMMARY | 2025-01-20 09:18 | XMS_ITS | Encounter Summary ---
Author Organization [facility] Address [address] [facility] [address] [place] [address] Phone Care Team Providers Care Grocery Clerk Checking Name Role Phone Snow Cueto MD Primary Care Provider [phone] Zenon Bruce MD Unavailable [email or web address] Chyna James MD Unavailable [phone] Encounter Details Date Type Department Care Team (Late st Contact Info) Description 11/26/2022 Procedure Pass [facility], Ct Scan - [address] [address] Social History Tobacco Use Types Packs/Day Years [...] 2:30 AM EDT Home Care Visit [facility] [address] [place] [phone] Monae Orr, RN 168 [place] [address] carlos 01/26/2025 2:30 AM EDT Home Care Visit [facility] [address] [place] [phone] Monae Orr, RN 168 [place] [address] carlos 01/31/2025 2:00 AM EDT Home Care Visit [facility] [address] [place] [phone] Monae Orr, JUVE [address] [place] [address] carlos 02/02/2025 1:00 AM EDT Home Care Visit [facility] [address] [place] [phone] Monae Orr, JUVE [address] [place] [address] carlos 02/07/2025 1:00 AM EDT Home Care Visit [facility] [address] [place] [phone] Monae Orr, JUVE [address] [place] [address] carols 02/09/2025 Home Care Visit [facility] [address] [place] [phone] Monae Orr RN 168 [place] [address] carlos 02/14/2025 12:30 AM EDT Home Care Visit [facility] 30 [place] [address] Monae Orr RN 168 [place] [address] carlos 02/16/2025 12:30 AM EDT Home Care Visit [facility] 30 [place] [address] Monae Orr RN 168 [place] [address] carlos 03/01/2025 4:00 PM EDT Office Visit [facility] Rheumatology [address] [place] [address] Chyna James MD [address] [place] [address], [address] [place] [address] [email or web address] 07/13/2025 2:00 PM EDT Office Visit [facility] 22 [facility] 3rd Floor, [address] [place] [address] Albert Paulino MD [address] [place] [address] documented as of this encounter Visit Diagnoses Not on filedocumented in this encounter Additional Health Concerns Infection Onset Date Last Indicated Resolved Time CoV-Risk 11/26/2022 11/26/2022 12/07/2022 1:21 AM EDT CoV-Exposed Comment:Positive COVID-19 02/28/2024 02/28/2024 02/28/2024 7:2 9 PM EDT CoV-Risk 02/28/2024 02/28/2024 02/28/2024 7:29 PM EDT COVID-19 02/28/2024 02/28/2024 03/20/2024 1:24 AM EST documented as of this encounter Care Teams Grocery Clerk Checking Relationship Specialty Start Date End Date Snow Cuteo MD [address] [place] [phone] [email or web address] PCP - General 02/18/17 Zenon Bruce MD [email or web address] Historical LMR Provider 02/18/17 Chyna James MD [address] [place] [address] 203 [place] [address] [email or web address] Historical LMR Provider 02/18/17 documented as of this encounter Additional Source Comments The information contained in this document represents components of the legal health record. It is not the complete legal health record.[facility]
--- OUTSIDE RECORDS SUMMARY | 2025-01-20 09:18 | XMS_ITS | Encounter Summary ---
Author Organization [facility] Address 399 [facility] [address] [place] [address] Phone Care Team Providers Care Director Of Catering Sales Name Role Phone Snow Cueto MD Primary Care Provider Snow Cueto MD Unavailable [phone] Zenon Bruce MD Unavailable [email or web address] Chyna James MD Unavailable [phone] Encounter Details Date Type Department Care Team (Late st Contact Info) Description 01/15/2021 Procedure Pass Non-Invasive Cardiology [address] [place] [address] Social History Tobacco Use Types [...] Visit [facility] 30 [place] [phone] Monae Orr, RN 168 [place] [address] [email or web address] 01/26/2025 2:30 AM EDT Home Care Visit [facility] [address] [place] [phone] Monae Orr, RN [address] [place] [address] [email or web address] 01/31/2025 2:00 AM EDT Home Care Visit [facility] [address] [place] [phone] Monae Orr, RN [address] [place] [address] [email or web address] 02/02/2025 1:00 AM EDT Home Care Visit [facility] [address] [place] [phone] Monae Orr, RN [address] [place] [address] [email or web address] 02/07/2025 1:00 AM EDT Home Care Visit [facility] [address] [place] [phone] Monae Orr, RN [address] [place] [address] [email or web address] 02/09/2025 Home Care Visit [facility] [address] [place] [phone] Monae Orr, RN [address] [place] [address] [email or web address] 02/14/2025 12:30 AM EDT Home Care Visit [facility] [address] [place] [phone] Monae Orr, RN [address] [place] [address] [email or web address] 02/16/2025 12:30 AM EDT Home Care Visit [facility] [address] [place] [address] Monae Orr RN 168 [place] [address] [email or web address] 03/01/2025 4:00 PM EDT Office Visit [facility] 22 [place] [address] Chyna James MD 22 [facility], [address] [place] [address] [email or web address] 07/13/2025 2:00 PM EDT Office Visit [facility] 22 [facility] 3rd Floor, [address] [place] [address] Albert Paulino MD [address] [place] [address] documented as of this encounter Visit Diagnoses [...] of this encounter Care Teams Director Of Catering Sales Relationship Specialty Start Date End Date Snow Cueto MD [address] [place] [address] [email or web address] PCP - General 02/18/17 Snow Cueto MD [address] [place] [address] [email or web address] Historical LMR Provider 02/18/17 2 Zenon Bruce MD [email or web address] Historical LMR Provider 02/18/17 Chyna James MD [address] [place] [address], [facility] 203 [place] [address] [email or web address] Historical LMR Provider 02/18/17 documented as of this encounter Additional Source Comments The information contained in this document represents components of the legal health record. It is not the complete legal health record.[facility]
--- OUTSIDE RECORDS SUMMARY | 2025-01-20 09:18 | XMS_ITS | Encounter Summary ---
Author Organization [facility] Address 399 [employer] | [employer] [facility] [address] [place] [address] Phone Care Team Providers Care Restaurant Crew Member Name Role Phone Snow Cueto MD Primary Care Provider [phone] Zenon Bruce MD Unavailable [email or web address] Chyna James MD Unavailable [phone] Encounter Details Date Type Department Care Team (Late st Contact Info) Description 01/17/2025 Plan of Care Documentation [facility] 30 [place] [address] Social History Tobacco Use Types Packs/Day Years [...] 2:30 AM EDT Home Care Visit [facility] [address] [place] [address] Monae Orr RN [address] [place] [address] carlos 01/26/2025 2:30 AM EDT Home Care Visit [facility] [address] [place] [phone] Monae Orr RN [address] [place] [address] [email or web address] 01/31/2025 2:00 AM EDT Home Care Visit [facility] [address] [place] [address] Monae Orr, JUVE [address] [place] [address] [email or web address] 02/02/2025 1:00 AM EDT Home Care Visit [facility] [address] [place] [phone] Monae Orr, RN [address] [place] [address] [email or web address] 02/07/2025 1:00 AM EDT Home Care Visit [facility] 30 [place] [address] Monae Orr, RN [address] [place] [address] [email or web address] 02/09/2025 Home Care Visit [facility] 30 [place] [address] Monae Orr, RN [address] [place] [address] carlos 02/14/2025 12:30 AM EDT Home Care Visit [facility] 30 [place] [address] Monae Orr, RN [address] [place] [address] [email or web address] 02/16/2025 12:30 AM EDT Home Care Visit [facility] [address] [place] [phone] Monae Orr, RN [address] [place] [address] [email or web address] 03/01/2025 4:00 PM EDT Office Visit [facility] 22 [place] [address] Chyna James MD 22 [facility], [facility] 203 [place] [address] [email or web address] 07/13/2025 2:00 PM EDT Office Visit [facility] 22 [facility] 3rd Floor, [address] [place] [address] Albert Paulino MD 50 [place] [address] [email or web address] documented as of this encounter Visit Diagnoses Not on filedocumented in this encounter Care Teams Restaurant Crew Member Relationship Specialty Start Date End Date Snow Cueto MD [address] [place] [phone] [email or web address] PCP - General 02/18/17 Zenon Bruce MD [email or web address] Historical LMR Provider 02/18/17 Chyna James MD [address] [place] [address], [address] [place] [address] [email or web address] Historical LMR Provider 02/18/17 documented as of this encounter Additional Source Comments The information contained in this document represents components of the legal health record. It is not the complete legal health record.[facility]"
--- OUTSIDE RECORDS SUMMARY | 2025-01-20 09:18 | XMS_ITS | Encounter Summary ---
Author Organization [facility] Address 399 [facility] [address] [place] [address] Phone Care Team Providers Care Slackman Name Role Phone Snow Cueto MD Primary Care Provider [phone] Zenon Bruce MD Unavailable [email or web address] Chyna James MD Unavailable [phone] Encounter Details Date Type Department Care Team (Late st Contact Info) Description 06/06/2021 Procedure Pass Non-Invasive Cardiology [address] [place] [address] Social History Tobacco Use Types Packs/Day Years [...] Visit [facility] 30 [place] [phone] Monae Orr RN [address] [place] [address] [email or web address] 01/26/2025 2:30 AM EDT Home Care Visit [facility] [address] [place] [phone] Monae Orr, RN [address] [place] [address] [email or web address] 01/31/2025 2:00 AM EDT Home Care Visit [facility] [address] [place] [phone] Monae Orr, RN [address] [place] [address] [email or web address] 02/02/2025 1:00 AM EDT Home Care Visit [facility] [address] [place] [phone] Monae Orr, RN [address] [place] [address] [email or web address] 02/07/2025 1:00 AM EDT Home Care Visit [facility] [address] [place] [phone] Monae Orr, RN [address] [place] [address] [email or web address] 02/09/2025 Home Care Visit [facility] [address] [place] [phone] Monae Orr, RN [address] [place] [address] [email or web address] 02/14/2025 12:30 AM EDT Home Care Visit [facility] [address] [place] [phone] Monae Orr, RN [address] [place] [address] [email or web address] 02/16/2025 12:30 AM EDT Home Care Visit [facility] 30 [place] [phone] Monae Orr RN [address] [place] [address] [email or web address] 03/01/2025 4:00 PM EDT Office Visit [facility] 22 [place] [address] Chyna James MD 22 [facility], [address] [place] [address] [email or web address] 07/13/2025 2:00 PM EDT Office Visit [facility] 22 [facility] 3rd Floor, [address] [place] [address] Albert Paulino MD [address] [place] [address] documented as of this encounter Visit Diagnoses [...] documented as of this encounter Care Teams Slackman Relationship Specialty Start Date End Date Snow Cueto MD [address] [place] [address] [email or web address] PCP - General 02/18/17 Zenon Bruce MD [email or web address] Historical LMR Provider 02/18/17 Chyna James MD [address] [place] [address] [email or web address] Historical LMR Provider 02/18/17 documented as of this encounter Additional Source Comments The information contained in this document represents components of the legal health record. It is not the complete legal health record.[facility]
--- OUTSIDE RECORDS SUMMARY | 2025-01-20 09:18 | XMS_ITS | Encounter Summary ---
Author Organization [facility] Address 399 [facility] [address] [place] [address] Phone Care Team Providers Care Fabric And Textile Factory Worker Name Role Phone Snow Cueto MD Primary Care Provider [phone]- [phone] Zenon Bruce MD Unavailable [email or web address] Chyna James MD Unavailable [phone] Encounter Details Date Type Department Care Team (Late st Contact Info) Description 02/02/2022 Procedure Pass Non-Invasive Cardiology [address] [place] [address] Social History Tobacco Use Types Packs/Day Years [...] Visit [facility] 30 [place] [phone] Monae Orr RN [address] [place] [address] carlos 01/26/2025 2:30 AM EDT Home Care Visit [facility] [address] [place] [phone] Monae Orr, RN [address] [place] [address] carlos 01/31/2025 2:00 AM EDT Home Care Visit [facility] [address] [place] [phone] Monae Orr, RN [address] [place] [address] carlos 02/02/2025 1:00 AM EDT Home Care Visit [facility] [address] [place] [phone] Monae Orr, RN [address] [place] [address] carlos 02/07/2025 1:00 AM EDT Home Care Visit [facility] [address] [place] [phone] Monae Orr, RN [address] [place] [address] carlos 02/09/2025 Home Care Visit [facility] [address] [place] [phone] Monae Orr, RN [address] [place] [address] carlos 02/14/2025 12:30 AM EDT Home Care Visit [facility] [address] [place] [phone] Monae Orr, RN [address] [place] [address] carlos 02/16/2025 12:30 AM EDT Home Care Visit [facility] 30 [place] [address] Monae Orr RN [address] [place] [address] carlos 03/01/2025 4:00 PM EDT Office Visit [facility] 22 [place] [address] Chyna James MD 22 [facility], [address] [place] [address] [email or web address] 07/13/2025 2:00 PM EDT Office Visit [facility] 22 [facility] 3rd Floor, [address] [place] [address] Albert Paulino MD [address] [place] [address] documented as of this encounter Visit Diagnoses Not on filedocumented in this encounter Additional Health Concerns Infection Onset Date Last Indicated Resolved Time CoV-Risk 11/26/2022 11/26/2022 12/07/2022 1:21 AM EDT CoV-Exposed Comment:Positive COVID-19 02/28/2024 02/28/2024 02/28/2024 7:2 9 PM EDT CoV-Risk 02/28/2024 02/28/2024 02/28/2024 7:29 PM EDT COVID-19 02/28/2024 02/28/2024 03/20/2024 1:24 AM EST documented as of this encounter Care Teams Fabric And Textile Factory Worker Relationship Specialty Start Date End Date Snow Cueto MD [address] [place] [address] [email or web address] PCP - General 02/18/17 Zenon Bruce MD [email or web address] Historical LMR Provider 02/18/17 Chyna James MD [address] [place] [address], [facility] 203 [place] [address] [email or web address] Historical LMR Provider 02/18/17 documented as of this encounter Additional Source Comments The information contained in this document represents components of the legal health record. It is not the complete legal health record.[facility]
--- OUTSIDE RECORDS SUMMARY | 2025-01-20 09:18 | XMS_ITS | Encounter Summary ---
Author Organization [facility] Address [address] [facility] [address] [place] [address] Phone Care Team Providers Care School Guidance Counselor Name Role Phone Snow Cueto MD Primary Care Provider Snow Cueto MD Unavailable [phone] Zenon Bruce MD Unavailable [email or web address] Chyna James MD Unavailable [phone] Encounter Details Date Type Department Care Team (Late st Contact Info) Description 01/10/2021 Procedure Pass Non-Invasive Cardiology [address] [place] [address] Social History Tobacco Use Types [...] Visit [facility] [address] [place] [phone] Monae Orr, RN [address] [place] [address] [email or web address] 01/26/2025 2:30 AM EDT Home Care Visit [facility] [address] [place] [phone] Monae Orr, RN [address] [place] [address] [email or web address] 01/31/2025 2:00 AM EDT Home Care Visit [facility] [address] [place] [phone] Monae Orr, RN [address] [place] [address] [email or web address] 02/02/2025 1:00 AM EDT Home Care Visit [facility] [address] [place] [phone] Monae Orr, RN [address] [place] [address] [email or web address] 02/07/2025 1:00 AM EDT Home Care Visit [facility] [address] [place] [phone] Monae Orr, RN [address] [place] [address] [email or web address] 02/09/2025 Home Care Visit [facility] [address] [place] [phone] Monae Orr, RN [address] [place] [address] [email or web address] 02/14/2025 12:30 AM EDT Home Care Visit [facility] [address] [place] [phone] Monae Orr, RN [address] [place] [address] [email or web address] 02/16/2025 12:30 AM EDT Home Care Visit [facility] [address] [place] [address] Monae Orr RN [address] [place] [address] [email or web address] 03/01/2025 4:00 PM EDT Office Visit [facility] [address] [place] [address] Chyna James MD 22 [facility], [address] [place] [address] [email or web address] 07/13/2025 2:00 PM EDT Office Visit [facility] [address] [facility] 3rd Floor, [address] [place] [address] Albert Paulino MD [address] [place] [phone] documented as of this encounter Visit Diagnoses [...] documented as of this encounter Care Teams School Guidance Counselor Relationship Specialty Start Date End Date Snow Cueto MD [address] [place] [address] [email or web address] PCP - General 02/18/17 Snow Cueto MD [address] [place] [address] [email or web address] Historical LMR Provider 02/18/17 2 Zenon Bruce MD [email or web address] Historical LMR Provider 02/18/17 Chyna James MD [address] [place] [address], [facility] [address] [place] [address] [email or web address] Historical LMR Provider 02/18/17 documented as of this encounter Additional Source Comments The information contained in this document represents components of the legal health record. It is not the complete legal health record.[facility]
--- OUTSIDE RECORDS SUMMARY | 2025-01-20 09:18 | XMS_ITS | Clinical Summary ---
Author Organization [facility] Address [address] [place] [address] Phone Care Team Providers Care Wind Turbine Electrical Engineer Name Role Phone Snow Cueto MD Primary Care Provider [phone] Zenon Bruce MD Unavailable 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 Pt has episodes of bradycardia and nocturnal pauses. Discussed the case with Dr. Paulino who recommended continuing to monitor as the episodes occurred while the pt was asleep and he is asymptomatic. He is not on any AV woo blocking agents. 15% battery life. No parameter changes. Plan: Continue remote checks Follow-up in 6 months Vitamin D insufficiency 04/12/2024 Assessment & Plan [...] positive Atrial fibrillation 02/28/2024 Assessment & Plan (01/10/2025 4:12 PM EDT): Pt is currently on Eliquis without issue. Pt continues to have episodes of AF on ILR. He is asymptomatic. Will continue current management and follow-up in 6 months or sooner if necessary. Plan: Continue eliquis Assessment & Plan (02/29/2024 9:13 AM EDT): [...] Eliquis, ERCP. 04/17 patient had ERCP at [facility] by Dr. Palomino. Report notes that patient's bile duct was filled with sludge and stones, sphincterotomy and sphincteroplasty was performed. The cholangiogram did not opacify the cystic duct and given that patient did not have a date for cholecystectomy a biliary stent was placed to maintain Dr. Jose Amaya until cholecystectomy. Pancreatic stent was also placed [...] in the office and given in writing. [facility] methotrexate user 09/29/2019 Assessment & Plan (10/27/2024 [...] surveillance in the next year or so. 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 Followed by Dr Kasper at [facility]- requests we fax most recent [...] this. 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 History [...] carbohydrate consistent diet. -Continue to monitor with [id number] glucose and insulin sliding scale coverage. Essential [...] disease 07/17/2017 Hyperlipidemia 07/17/2017 Assessment & Plan (01/10/2025 4:12 PM EDT): Pt is currently on simvastatin and tolerating well. Will continue current management. Plan: Continue simvastatin Assessment & Plan (01/19/2023 1:57 PM EDT): [...] EDT): Asymptomatic. Continue Eliquis. He has a [employer]udia ILR that we will continue to remotely monitor. Assessment & Plan (01/29/2022 2:26 PM EDT): Asymptomatic. Continue Eliquis. Assessment & Plan (10/12/2021 12:19 PM EDT): Patient is followed by [facility], last seen in July 2021. It appears he had been on Coreg but since off. His current DC interval is noted at 338 (he does [...] medication today for a bradycardic and prolonged DC interval. He is asymptomatic with this. He [...] visit in 4 months -standing orders in [facility] and carefully continue current dose of [...] visit in 4 months -standing orders in [facility] and carefully continue current dose of [...] visit in 3 months s-standing orders in [facility] and carefully continue current dose of [...] new set of monitoring labs-standing orders in [facility] and carefully continue current dose of [...] QTC Interval 06/06/2020 428 ms Final P Hastings 06/06/2020 81 degrees Final R Wave [place] 06/06/2020 28 degrees Final T Wave [place] 06/06/2020 30 degrees Final WBC 06/06/2020 5.89 [...] Noted Date Diagnosed Date Resolved Date 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 Call if problems or questions. PAD (peripheral artery disease) 06/06/2020 04/12/2024 Encounters Date Type Department Care Team Description 01/19/2025 1:00 AM EDT Home [facility] Visit [facility] [address] [place] [phone] Hari, Roselyn Palacios RN SN HOME VISIT 01/18/2025 Episode Documentation Update [facility] [address] [place] [phone] Kavya William 01/17/2025 Plan of Care Documentation [facility] [address] [place] [phone] 01/15/2025 11:30 AM EDT Home Care Visit [facility] [address] [place] [phone] Monae Orr, RN SN OASIS RECERTIFICATION/FUP 01/10/2025 2:00 PM EDT Office Visit [facility] [address] [place] [address] 3rd Floor, [address] [place] [address] Echo Mckeon DNP Atrial fibrillation, unspecified type (Primary Dx); Pure hypercholesterolemi a; Implantable loop recorder present 01/10/2025 Home Care Visit [facility] [address] [place] [address] Roselyn Noriega, JUVE SN HOME VISIT 01/09/2025 Home Care Visit [facility] [address] [place] [address] Jeanine Wolf, RN CASE COMMUNICATION 01/03/2025 12:00 PM EDT Home Care Visit [facility] [address] [place] [phone] Monae Orr, RN SN HOME VISIT 12/20/2024 11:30 AM EDT Home Care Visit [facility] [address] [place] [phone] Monae Orr, RN SN HOME VISIT 12/13/2024 11:00 AM EDT Home Care Visit [facility] [address] [place] [phone] Monae Orr, RN SN HOME VISIT 12/11/2024 11:30 AM EDT Home Care Visit [facility] [address] [place] [phone] Monae Orr, RN SN HOME VISIT 12/06/2024 11:30 AM EDT Home Care Visit [facility] [address] [place] [phone] Monae Orr, RN SN HOME VISIT 12/01/2024 11:00 AM EDT Home Care Visit [facility] [address] [place] [phone] Monae Orr, RN SN HOME VISIT 11/27/2024 11:30 AM EDT Home Care Visit [facility] [address] [place] [phone] Monae Orr, RN SN HOME VISIT 11/27/2024 Refill [facility] [address] [place] [address] Chyna James MD Medication Refill 11/22/2024 10:00 AM EDT Home Care Visit [facility] [address] [place] [address] Monae Orr, RN SN HOME VISIT 11/20/2024 Home Care Visit [facility] [address] [place] [phone] Ayah Vaelra CASE COMMUNICATION 11/17/2024 10:00 AM EDT Home Care Visit [facility] [address] [place] [address] Monae Orr, RN SN OASIS START OF CARE (SOC) 11/17/2024 Plan of Care Documentation [facility] [address] [place] [address] 11/16/2024 Home Care Visit [facility] [address] [place] [address] Jeanine Wolf, JUVE CASE COMMUNICATION 11/14/2024 Orders Only [facility] [address] [place] [address] Sarah Garrett MD 10/27/2024 4:00 PM EDT Office Visit [facility] [address] [place] [address] Chyna James MD 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 with positive rheumatoid factor (Primary Dx); [facility] methotrexate user; Anticoagulated; History of left below knee amputation; Peripheral vascular disease; Gastroesophageal reflux disease with esophagitis without hemorrhage; Type 2 diabetes mellitus with other circulatory complication, without long-term current use of insulin; Chronic prescription opiate use 10/25/2024 Orders Only [facility] [address] [place] [address] Chyna James MD from Last 3 Months [...] EDT Inhaled Oxygen Concentration - - Weight 85.3 kg (188 lb) 01/10/2025 1:47 PM EDT Height 188 cm (6' 2 ) 01/10/2025 1:47 PM EDT Body Mass Index 24.14 01/10/2025 1:47 PM EDT Plan of Treatment Upcoming Encounters Date Type Department Care Team (Late st Contact Info) Description 01/24/2025 2:30 AM EDT [facility] [address] [place] [phone] Monae Orr, RN [address] [place] [address] [email or web address] 01/26/2025 2:30 AM EDT Home Care Visit [facility] [address] [place] [phone] Monae Orr, RN [address] [place] [address] [email or web address] 01/31/2025 2:00 AM EDT Home Care Visit [facility] [address] [place] [phone] Monae Orr, RN [address] [place] [address] [email or web address] 02/02/2025 1:00 AM EDT Home Care Visit [facility] [address] [place] [phone] Monae Orr, RN [address] [place] [address] [email or web address] 02/07/2025 1:00 AM EDT Home Care Visit [facility] [address] [place] [phone] Monae Orr, RN [address] [place] [address] [email or web address] 02/09/2025 Home Care Visit [facility] [address] [place] [phone] Monae Orr, RN [address] [place] [address] [email or web address] 02/14/2025 12:30 AM EDT Home Care Visit [facility] [address] [place] [phone] KirbyMonae ac RN [address] [place] [address] carlos 02/16/2025 12:30 AM EDT Home Care Visit [facility] [address] [place] [address] Monae Orr RN [address] [place] [address] carlos 03/01/2025 4:00 PM EDT Office Visit [facility] [address] [place] [address] Chyna James MD 22 [facility], [address] [place] [address] [email or web address] 07/13/2025 2:00 PM EDT Office Visit [facility] [address] [facility] 3rd Floor, [address] [place] [address] Albert Paulino MD [address] [place] [address] Health Maintenance Due Date Last Done Comments DEPRESSION SCREENING 1957 DIABETIC EYE EXAM 07/17/2017 ZOSTER VACCINES (2 of 2) 04/10/2021 02/13/2021, 01/02 HEMOGLOBIN A1C 04/12/2022 10/11/2021, 01/01, 01/13/2021, Additional history exists INFLUENZA VACCINE (#1) 2024 , 04/06/2023, 03/19/2022, Additional history exists COVID-19 VACCINE (7 - Moderna risk season) 2025 06/16/2024, 06/02/2022, 01/01/2021, Additional history exists Adult Td,Tdap Booster 02/05/2025 02/05/2015, 010 POTASSIUM LEVEL 03/01/2025 03/01/2024, 02/01, 02/28/2024, Additional history exists BLOOD PRESSURE 07/19/2025 01/19/2025 CREATININE LEVEL 10/24/2025 10/24/2024, , 04/11/2024, Additional [...] this topic Medical Devices Implanted Type Area Whirley Operator Device Identifier Shelf Expiration Date Model / Serial / Lot Implantable Monitor Implantable Monitor Prosthetic Joint Prosthetic Joint Left: Knee Stent Viabahn 8mm 5cm 120cm .018in Endoprosthesis Heparin Bioactive Surface - [id number] Implanted:Qty: 1 on 06/06/2020 by Trung Baca MD at [facility] Stent W L GORE [id number] 01/27/2022 [id number] / [id number] / Description:Right distal SFA Stent Absolute Pro 8mm 80mm 80cm .035in Otw Vascular Nickel Titanium Self-Expanding External Iliac Artery Tri Axial Radiopaque Marker Sterile Disp - [id number] Implanted:Qty: 1 on 06/06/2020 by Trung Baca MD at [facility] Stent STRONG VASCULAR [id number] 12/31/2020 [id number] / / [id number] Description:Right distal SFA Procedures Procedure Name Priority [...] EDT) SODIUM 136 133 - 146 mmol/L [facility] CHLORIDE 104 96 - 108 mmol/L [facility] POTASSIUM 4.4 3.3 - 5.1 mmol/L [facility] CO2 21 21 - 35 mmol/L [facility] BUN 31(H) 6 - 19 mg/dL [facility] CREATININE 1.50 0.5 - 1.5 mg/dL [facility] GLUCOSE 84 70 - 99 mg/dL [facility] CALCIUM 8.5 8.4 - 10.3 mg/dL [facility] EGFR 47(L) >59 mL/min/1.7 3m2 [facility] Comment:Estimated glomerular filtration rate calculated using the CKD-EPI refit equation. ANION GAP 15 10 - 20 mmol/L [facility] Blood 03/01/2024 6:22 AM EDT 03/01/2024 6:31 AM EDT us Francoise Conner MD LAB BLOOD ORDERABLES Final Resul t [address] [address] * Hemoglobin A1c (10/11/2021 6:05 AM EDT) HEMOGLOBIN A1C 5.3 4.3 - 5.8 % [facility] Blood 10/11/2021 6:05 AM EDT 10/11/2021 7:07 AM EDT us Avani Escoto DO LAB BLOOD ORDERABLES Final Re sult Performing Organization Address City/Va Hospital/ZIP Co de Phone Number [address] [address] from Last 3 Months or Most Recently Relevant to Health Maintenance Insurance [employer] RE[employer]ACEMENT [employer] RE[employer]AC[employer] [place] [employer] RE[employer] [place] [employer] REPLAC[employer]AC[employer] Advance Directives For more information, please contact: [phone] (9AM - 5PM [facility], Wednesday-Wednesday) Documents on File Type Date Recorded 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 Historical LMR Provider 02/18/17 Chyna James MD [address] [place] [address], [facility] [address] [place] [address] [email or web address] Historical LMR Provider 02/18/17 Additional Source Comments The information contained in this document represents components of the legal health record. It is not the complete legal health record.[facility]
--- OUTSIDE RECORDS SUMMARY | 2025-01-20 09:19 | XMS_ITS | Patient Health Record ---
Author Organization [facility] Address [address] [place] [address] Care Team Providers Care Burning Supervisor Name Role Phone Snow Cueto Primary Care Provider UnavailJeannette Mcclain Unavailable [phone] Allergies Allergen (clinical drug ingredient) Drug/Non Drug [...] Ordered Date Performed Result Body Sit e 64519-QKPAIHW NAIL, 1-5 10/25/2024 N/A Encounters Encounter Location Date Provider Diagnosis [facility] [address] 10/25/2024 Jeannette Vee Type 2 diabetes mellitus with diabetic polyneuropathy E11.42 ; Tinea unguium B35.1 ; Ischemic ulcer of right heel, limited to breakdown of skin L97.411 and Deep tissue injury T14.8XXA [facility] [address] 10/25/2024 Jeannette Vee Assessments Encounter Date Diagnosis (ICD Code) Assessment Notes Treatment Notes Treatment Clinical Notes Section Notes 10/25/2024 Type 2 diabetes mellitus with diabetic polyneuropathy (ICD-10 - E11.42) 10/25/2024 Tinea unguium (ICD-10 - B35.1) 10/25/2024 Ischemic ulcer of right heel, limited to breakdown of skin (ICD-10 - L97.411) Response to treatment 10/25/2024 Deep tissue injury (ICD-10 - T14.8XXA) Plan Of Treatment Pending Test Test Name [...] X ray : Foot, right 3V 02/16/2011 34422-MKFXTGK NAIL, -01/22/2011 33376-WFZMJHJ NAIL, -09/03/2011 30830-QJWUKYE NAIL, -04/13/2011 33922-JFBSATK NAIL, 05-0706/29/2011 88136-NWSKKLX NAIL, -11/12/2011 68973-HWWNBRO NAIL, -12/27/2014 64517-YMBDVSS NAIL, 05-0707/31/2015 61527-BMKQDCS NAIL, 05-0701/27/2012 04413-OBKJAEM NAIL, 05-0704/13/2012 62881-XDTYZIY NAIL, 05-0707/27/2012 28892-PDXQIZM NAIL, 05-0712/07/2012 72059-IUEHONF NAIL, 05-0704/05/2013 43069-SDXXWCT NAIL, 05-0708/07/2013 37422-ZLQZHLM NAIL, 05-0712/11/2013 66094-PZHSUSI NAIL, 05-0704/12/2014 28878-YUXHMGQ NAIL, 05-0709/29/2017 30091-PLKMJDQ NAIL, 05-0712/23/2017 23675-ENCFKSL NAIL, 05-0703/31/2018 24547-SXPKBVG NAIL, 05-0710/10/2015 69445-WBYIHHU NAIL, 05-0712/19/2015 15685-SHZUXMX NAIL, 05-0706/15/2016 26627-IRFINZO NAIL, 05-0703/16/2016 42272-MLVEXXT NAIL, 05-0712/16/2016 78540-EBMTZEZ NAIL, 05-0703/10/2017 18314-FATUUVC NAIL, 05-0707/05/2017 39789-PBPWSEO NAIL, 05-0710/25/2024 80881-Grshmpie Plate 04/12/2014 11796-Idlrdhrd Plate 12/27/2014 36369-Pbsolyix Plate 04/13/2011 55283- Debride <25 sq cm 10/12/2011 95244- Debride <25 sq cm 10/28/2011 75137- Debride <25 sq cm 09/03/2011 50948- Debride <25 sq cm 03/11/2015 58443- Debride <25 sq cm 12/27/2014 58344- Debride <25 sq cm 01/31/2015 52691- Debride <25 sq cm 05/17/2014 69132- Debride <25 sq cm 04/12/2014 83717- Debride <25 sq cm 03/20/2021 25186-KCGGKZV SKIN/TISSUE 07/31/2021 09699-ELMBCGI SKIN/TISSUE 07/01/2020 50884-WUOYFSE SKIN/TISSUE 04/17/2020 05061-CMWHEWP SKIN/TISSUE 01/31/2015 39125-TGAYGNL SKIN/TISSUE 02/21/2015 92696-CHHEZGY SKIN/TISSUE 03/11/2015 18416-BZCSGZB SKIN/TISSUE 03/21/2015 74613-EWBRFOI SKIN/TISSUE 02/25/2015 13687-GBXMYRP SKIN/TISSUE 10/05/2011 18823-TZCRFML SKIN/TISSUE 11/12/2011 85497-ELSVZFI SKIN/TISSUE 01/22/2011 36816-TBKJEXM SKIN/TISSUE 02/16/2011 77522-EBYJ SKIN LESIONS, OVER 4 07/31/19 16 75041-OYDA SKIN LESIONS, OVER 4 12/28/19 15 48072-EBJS SKIN LESIONS, OVER 4 12/12/19 14 35584-BLVO SKIN LESIONS, OVER 4 08/08/19 14 11849-DYNR SKIN LESIONS, OVER 4 03/31/20 18 63819-ZCNP SKIN LESIONS, OVER 4 12/24/19 18 98802-ZIPW SKIN LESIONS, OVER 4 07/15/19 19 85808-ZHUU SKIN LESIONS, OVER 4 10/19/19 19 69331-QXAZ SKIN LESIONS, OVER 4 01/17/20 19 13574-NPTB SKIN LESIONS, OVER 4 05/24/19 20 20550-IIZL SKIN LESIONS, OVER 4 08/31/19 20 50832-YDZZ SKIN LESIONS, OVER 4 12/29/19 20 45594-NSTW SKIN LESIONS, OVER 4 04/17/20 20 66028-TWEB SKIN LESIONS, OVER 4 03/10/20 17 14951-HCWE SKIN LESIONS, OVER 4 03/16/20 16 45781-DEKP SKIN LESIONS, OVER 4 06/15/19 17 65349-ORSG SKIN LESIONS, OVER 4 09/15/19 17 65452-ENKC SKIN LESIONS, OVER 4 12/17/19 17 63366-UXKY SKIN LESIONS, OVER 4 12/19/19 16 58561-BLCM SKIN LESIONS, OVER 4 10/10/19 16 01895-QOHR SKIN LESIONS, OVER 4 07/06/19 18 03744-DRDL SKIN LESIONS, OVER 4 03/20/20 21 80873-GKUA SKIN LESIONS, 2 TO 4 08/01/19 22 60427-GTYF SKIN LESIONS, 2 TO 4 09/30/19 18 33227-EZUL SKIN LESIONS, 2 TO 4 04/05/20 13 22417-OJIL SKIN LESIONS, 2 TO 4 12/08/19 13 72917-HDKN SKIN LESIONS, 2 TO 4 07/28/19 13 91485-PJAM SKIN LESIONS, 2 TO 4 04/13/20 12 44502-BGJS SKIN LESIONS, 2 TO 4 02/22/20 15 04602-SRJO SKIN LESIONS, 2 TO 4 01/23/20 11 46683-AHAO SKIN LESIONS, 2 TO 4 04/13/20 11 68767-NYRO SKIN LESIONS, 2 TO 4 06/29/19 12 51039-LCNV SKIN LESIONS, 2 TO 4 01/27/20 12 63247-RYPL SKIN LESIONS, 2 TO 4 09/03/19 12 16705-GACIXNVZ OF HEMATOMA/FLUID 011 43926-AXUEHHOB OF HEMATOMA/FLUID 018 55183-ZRYSHHAI OF HEMATOMA/FLUID 018 20068-SRERZRGM OF HEMATOMA/FLUID 020 00811-XWMRWDGG OF HEMATOMA/FLUID 021 13648- Short Leg Cast 02/23/2011 66245- Unna Boot 03/05/2011 Next Appt Details Provider Name:Jeannette Garg johnny, 01/29/2025 02:30:00 PM, [address] [facility], [place], [address], Insurance Providers Payer Name Payer Address Payer Phone Subscriber Number Group Number Insured Name Patient Relationship to Insured Coverage Start Date Coverage End Date [employer]age [address] [place] [address] [id number] [place] Nayak Self - patient is the insured Medical (General) History Medical History History ICD Code mumps measles chicken pox Arthritis Rheumatoid arthritis Macular degeneration type II diabetes Surgical History Surgery Date(Month/Year) carpal tunnel surgery hernia shoulder surgery left foot amputation 2010 hammer toe 11/11 colonoscopy/endoscopy 2013 hammertoe right 04/18/2015 right cataract 01/2018 left cataract 01/2018t stent 06/2020 Rt foot sx 01/20/21 Hospitalization History Reason Date(Month/Year) las 6 months, a few visits to ER 03/2022 [facility] Wound care -everyother day [facility] wound clinic - was admit KERVIN jensen celulitis - removed LT ft due to infection 04/2017 Admitted to [facility] and transferred to [facility], x 4 days, 03/2014
--- OUTSIDE RECORDS SUMMARY | 2025-01-20 09:19 | XMS_ITS | Encounter Summary ---
Author Organization [facility] Address [address] [place] [address] [place] [address] Phone Care Team Providers Care Assembler Knife Name Role Phone Snow Cueto MD Primary Care Provider Snow Cueto MD Unavailable [phone] Zenon Bruce MD Unavailable [email or web address] Chyna James MD Unavailable [phone] Encounter Details Date Type Department Care Team (Late st Contact Info) Description 10/15/2020 Ancillary Orders Non-Invasive Cardiology [address] [place] [address] Beck Adam MD 30 [place] [address] [email or web address] Atrial fibrillation, unspecified type Social History Tobacco [...] 2:30 AM EDT Home [facility] Visit [facility] [address] [place] [phone] Monae Orr, RN [address] [place] [address] [email or web address] 01/26/2025 2:30 AM EDT Home Care Visit [facility] [address] [place] [phone] Monae Orr, RN [address] [place] [address] [email or web address] 01/31/2025 2:00 AM EDT Home Care Visit [facility] [address] [place] [phone] Monae Orr, RN [address] [place] [address] [email or web address] 02/02/2025 1:00 AM EDT Home Care Visit [facility] [address] [place] [phone] Monae Orr, RN [address] [place] [address] [email or web address] 02/07/2025 1:00 AM EDT Home [facility] Visit [facility] [address] [place] [phone] Monae Orr, RN [address] [place] [address] [email or web address] 02/09/2025 Home Care Visit [facility] [address] [place] [phone] Monae Orr, RN [address] [place] [address] [email or web address] 02/14/2025 12:30 AM EDT Home [facility] Visit [facility] [address] [place] [address] Monae Orr RN [address] [place] [address] carlos 02/16/2025 12:30 AM EDT Home Care Visit [facility] 30 [place] [address] Monae Orr RN [address] [place] [address] carlos 03/01/2025 4:00 PM EDT Office Visit [facility] 22 [place] [address] Chyna James MD 22 [facility], [address] [place] [address] [email or web address] 07/13/2025 2:00 PM EDT Office Visit [facility] [address] [facility] 3rd Floor, [address] [place] [address] Albert Paulino MD [address] [place] [address] documented as of this encounter Results * DEVICE CHECK: ILR IN-HOME INTERROGATION (10/15/2020 9:22 AM EDT) Narrative Bobby Lan DO - 11/01/2020 10:37 AM EDT Remote interrogation of implantable loop recorder. Reason for implant: Atrial fibrillation Quality Assurance Test Program Manager: [email or web address] Symptoms: 0 Pauses: 0 Bradycardia: 7 [...] documented as of this encounter Care Teams Assembler Knife Relationship Specialty Start Date End Date Snow Cueto MD [address] [place] [address] PCP - General 02/18/17 Snow Cueto MD [address] [place] [address] [email or web address] Historical LMR Provider 02/18/17 2 Zenon Bruce MD [email or web address] Historical LMR Provider 02/18/17 Chyna James MD [address] [place] [address], [address] [place] [address] [email or web address] Historical LMR Provider 02/18/17 documented as of this encounter Additional Source Comments The information contained in this document represents components of the legal health record. It is not the complete legal health record.[facility]
--- OUTSIDE RECORDS SUMMARY | 2025-01-20 09:19 | XMS_ITS | Clinical Summary ---
Author Organization [facility] Address 175 [place] [address] Phone Care Team Providers Care Senior Management Consultant Name Role Phone Snow Cueto MD Primary Care Provider Allergies No known active allergies Medications No known medications Active Problems Problem Noted Date Diagnosed Date CKD (chronic kidney disease) stage 3, GFR 30-59 ml/min ([facility] V24, [facility] V28) 07/04/2013 DJD (degenerative joint disease) 07/04/2013 DM (diabetes mellitus), type 2 with neurological complications ([facility] V24, [facility] V28) 07/04/2013 Type 2 diabetes mellitus wit h renal manifestations, controlled ([facility] V24, [facility] V28) 07/04/2013 GERD (gastroesophageal reflux disease) 4 Mixed hyperlipidemia 07/04/2013 Surgical History Surgery Date Site/Laterality Comments CARPAL TUNNEL RELEASE 05/03/1994 PROCEDURE: [place] NEUROPLASTY &/TRANSPOS MEDIAN NRV CARPAL TUNNE TOTAL KNEE ARTHROPLASTY 05/03/1989 PROCEDURE: HISTORICAL TOTAL KNEE REPLACE; COMMENT: left TONSILLECTOMY 05/03/1955 PROCEDURE: HISTORICAL TONSILLECTOMY APPENDECTOMY 05/03/1954 PROCEDURE: HISTORICAL APPENDECTOMY COLONOSCOPY 04/15/2009 PROCEDURE: [place] COLONOSCOPY STOMA DX INCLUDING COLLJ SPEC SPX COLONOSCOPY 07/14/13 [facility] PROCEDURE: NH COLONOSCOPY STOMA DX INCLUDING COLLJ SPEC SPX; COMMENT: tics; would not repeat ESOPHAGOGASTRODUODENOSCOPY 07/14/13 [facility] PROCEDURE: NH ESOPHAGOGASTRODUODENOSCOPY TRANSORAL DIAGNOSTIC; COMMENT: normal OTHER SURGICAL HISTORY 08/03/2021 PROCEDURE: NH SLCTV CATHJ 3RD+ ORD SLCTV ABDL PEL/LXTR [...] 11/03/2023 11/02/2022, 07/02/2022, 02/10/2022, Additional history exists Hypertension/CHF/CAD Annual BMP Blood Test 03/16/2024 11/02/2022, 07/02/2022, 02/10/2022, Additional history exists Depression Screening 05/03/2024 COVID-19 Vaccine ( season) 2025 06/02/2022, 12/19/2020, 12/18/2020, Additional history exists Influenza Vaccine (#1) 2025 , 04/06/2023, 03/19/2022, [...] patient's age to complete this topic Insurance [facility] Care Teams Senior Management Consultant Relationship Specialty Start Date End Date Snow Cueto MD [address] [place] [address] PCP - General 03/22/13
--- OUTSIDE RECORDS SUMMARY | 2025-01-20 09:19 | XMS_ITS | Encounter Summary ---
Author Organization [facility] Address [address] [facility] [address] [place] [address] Phone Care Team Providers Care Machine Cutter Name Role Phone Snow Cueto MD Primary Care Provider [phone] Zenon Bruce MD Unavailable [email or web address] Chyna James MD Unavailable [phone] Encounter Details Date Type Department Care Team (Late st Contact Info) Description 02/02/2022 Procedure Pass [facility], Ct Scan - [facility] [address] [place] [address] Social History Tobacco Use Types Packs/Day Years [...] 01/24/2025 2:30 AM EDT [facility] 30 [place] [phone] Monae Orr, RN [address] [place] [address] [email or web address] 01/26/2025 2:30 AM EDT Home [facility] Visit [facility] [address] [place] [phone] Monae Orr, RN [address] [place] [address] [email or web address] 01/31/2025 2:00 AM EDT Home Care Visit [facility] [address] [place] [phone] Monae Orr, RN [address] [place] [address] [email or web address] 02/02/2025 1:00 AM EDT Home Care Visit [facility] [address] [place] [phone] Monae Orr, RN [address] [place] [address] [email or web address] 02/07/2025 1:00 AM EDT Home Care Visit [facility] [address] [place] [phone] Monae Orr, RN [address] [place] [address] [email or web address] 02/09/2025 Home Care Visit [facility] [address] [place] [phone] Monae Orr, RN [address] [place] [address] [email or web address] 02/14/2025 12:30 AM EDT Home Care Visit [facility] [address] [place] [phone] Monae Orr, RN [address] [place] [address] [email or web address] 02/16/2025 12:30 AM EDT Home Care Visit [facility] 30 [place] [address] Monae Orr RN [address] [place] [address] carlos 03/01/2025 4:00 PM EDT Office Visit [facility] 22 [place] [address] Chyna James MD 22 [facility], [address] [place] [address] [email or web address] 07/13/2025 2:00 PM EDT Office Visit [facility] 22 [facility] 3rd Floor, [address] [place] [address] Albert Paulino MD [address] [place] [address] documented as of this encounter Visit Diagnoses Not on filedocumented in this encounter Additional Health Concerns Infection Onset Date Last Indicated Resolved Time CoV-Risk 11/26/2022 11/26/2022 12/07/2022 1:21 AM EDT CoV-Exposed Comment:Positive COVID-19 02/28/2024 02/28/2024 02/28/2024 7:2 9 PM EDT CoV-Risk 02/28/2024 02/28/2024 02/28/2024 7:29 PM EDT COVID-19 02/28/2024 02/28/2024 03/20/2024 1:24 AM EST documented as of this encounter Care Teams Machine Cutter Relationship Specialty Start Date End Date Snow Cueto MD [address] [place] [address] [email or web address] PCP - General 02/18/17 Zenon Bruce MD [email or web address] Historical LMR Provider 02/18/17 Chyna James MD [address] [place] [address], [facility] [address] [place] [address] [email or web address] Historical LMR Provider 02/18/17 documented as of this encounter Additional Source Comments The information contained in this document represents components of the legal health record. It is not the complete legal health record.[facility]
--- OUTSIDE RECORDS SUMMARY | 2025-01-20 09:19 | XMS_ITS | Encounter Summary ---
Author Organization [facility] Address [address] [facility] [address] [place] [address] Phone Care Team Providers Care Turning And Beading Machine Operator Name Role Phone Snow Cueto MD Primary Care Provider [phone] Snow Cueto MD Unavailable [phone] Zenon Bruce MD Unavailable [email or web address] Chyna James MD Unavailable [phone] Encounter Details Date Type Department Care Team (Late st Contact Info) Description 10/15/2020 Ancillary Orders [facility] 22 [facility] 3rd Floor, [address] [place] [address] Beck Adam MD 30 [place] [address] [email or web address] Social History Tobacco Use Types Packs/Day Years [...] 2:30 AM EDT Home Care Visit [facility] [address] [place] [phone] Monae Orr, RN [address] [place] [address] [email or web address] 01/26/2025 2:30 AM EDT Home Care Visit [facility] [address] [place] [phone] Monae Orr, RN [address] [place] [address] [email or web address] 01/31/2025 2:00 AM EDT Home Care Visit [facility] [address] [place] [phone] Monae Orr, RN [address] [place] [address] [email or web address] 02/02/2025 1:00 AM EDT Home Care Visit [facility] [address] [place] [phone] Monae Orr, RN [address] [place] [address] [email or web address] 02/07/2025 1:00 AM EDT Home Care Visit [facility] [address] [place] [phone] Monae Orr, RN [address] [place] [address] [email or web address] 02/09/2025 Home Care Visit [facility] [address] [place] [phone] Monae Orr, RN [address] [place] [address] [email or web address] 02/14/2025 12:30 AM EDT Home Care Visit [facility] 30 [place] [address] Monae Orr RN [address] [place] [address] carlos 02/16/2025 12:30 AM EDT Home Care Visit [facility] 30 [place], [place] [phone] Monae Orr RN [address] [place] [address] carlos 03/01/2025 4:00 PM EDT Office Visit [facility] 22 [place] [address] Chyna James MD [address] [facility], [address] [place] [address] [email or web address] 07/13/2025 2:00 PM EDT Office Visit [facility] 22 [facility] 3rd Floor, [address] [place] [address] Albert Paulino MD [address] [place] [address] documented as of this encounter Visit Diagnoses [...] documented as of this encounter Care Teams Turning And Beading Machine Operator Relationship Specialty Start Date End Date Snow Cueto MD [address] [place] [address] [email or web address] PCP - General 02/18/17 Snow Cueto MD [address] [place] [address] [email or web address] Historical LMR Provider 02/18/17 2 Zenon Bruce MD [email or web address] Historical LMR Provider 02/18/17 Chyna James MD [address] [place] [address], [address] [place] [address] [email or web address] Historical LMR Provider 02/18/17 documented as of this encounter Additional Source Comments The information contained in this document represents components of the legal health record. It is not the complete legal health record.[facility]
--- OUTSIDE RECORDS SUMMARY | 2025-01-20 09:19 | XMS_ITS | Encounter Summary ---
Author Organization [facility] Address [address] [facility] [address] [place] [address] Phone Care Team Providers Care Bi Consultant Name Role Phone Snow Cueto MD Primary Care Provider [phone] Snow Cueto MD Unavailable [phone] Zenon Bruce MD Unavailable [email or web address] Chyna James MD Unavailable [phone] Encounter Details Date Type Department Care Team (Late st Contact Info) Description 10/15/2020 Procedure Pass Non-Invasive Cardiology [address] [place] [address] Social History Tobacco Use Types [...] Visit [facility] 30 [place] [phone] Monae Orr, RN 168 [place] [address] [email or web address] 01/26/2025 2:30 AM EDT Home Care Visit [facility] [address] [place] [phone] Monae Orr, RN [address] [place] [address] [email or web address] 01/31/2025 2:00 AM EDT Home Care Visit [facility] [address] [place] [phone] Monae Orr, RN [address] [place] [address] [email or web address] 02/02/2025 1:00 AM EDT Home Care Visit [facility] [address] [place] [phone] Monae Orr, RN [address] [place] [address] [email or web address] 02/07/2025 1:00 AM EDT Home Care Visit [facility] [address] [place] [phone] Monae Orr, RN [address] [place] [address] [email or web address] 02/09/2025 Home Care Visit [facility] [address] [place] [phone] Monae Orr, RN [address] [place] [address] [email or web address] 02/14/2025 12:30 AM EDT Home Care Visit [facility] [address] [place] [phone] Monae Orr, RN [address] [place] [address] [email or web address] 02/16/2025 12:30 AM EDT Home Care Visit [facility] [address] [place] [address] Monae Orr RN [address] [place] [address] [email or web address] 03/01/2025 4:00 PM EDT Office Visit [facility] [address] [place] [address] Chyna James MD 22 [facility], [address] [place] [address] [email or web address] 07/13/2025 2:00 PM EDT Office Visit [facility] [address] [facility] 3rd Floor, [address] [place] [address] Albert Paulino MD [address] [place] [address] documented as of this encounter Visit Diagnoses [...] documented as of this encounter Care Teams Bi Consultant Relationship Specialty Start Date End Date Snow Cueto MD [address] [place] [address] [email or web address] PCP - General 02/18/17 Snow Cueto MD [address] [place] [address] [email or web address] Historical LMR Provider 02/18/17 2 Zenon Bruce MD [email or web address] Historical LMR Provider 02/18/17 Chyna James MD [address] [place] [address], [facility] 203 [place] [address] [email or web address] Historical LMR Provider 02/18/17 documented as of this encounter Additional Source Comments The information contained in this document represents components of the legal health record. It is not the complete legal health record.[facility]
--- OUTSIDE RECORDS SUMMARY | 2025-01-20 09:19 | XMS_ITS | Encounter Summary ---
Author Organization [facility] Address [address] [place] [address] [place] [address] Phone Care Team Providers Care Cooker Casing Name Role Phone Snow Cueto MD Primary Care Provider [phone] Zenon Bruce MD Unavailable [email or web address] Chyna James MD Unavailable [phone] Reason for Referral * MRI/CAT Scan - Closed Specialty Diagnoses / Procedures Referred By Contac t Referred To Contact Radiology Diagnoses Disorientation, unspecified Procedures CT Head CHG CT SCAN,HEAD/BRAIN,W/O CONTRAST Ayah Wren NP [address] [place] [phone] Phone: tel: fax: Referral ID Status Reason Start Date Expiration Date Visits Re quested Visits Authorized [id number] Closed 02/02/2022 04/03/2022 1 1 Encounter Details Date Type Department Care Team (Late st Contact Info) Description 02/02/2022 Transcribe Orders Virtual Department 30 [place] [address] Ayah Rao NP [address] [place], [place] [phone] Disorientation, unspecified (Primary Dx) Social History Tobacco [...] Care Visit [facility] [address] [place] [phone] Monae Orr RN [address] [place] [address] carlos 01/26/2025 2:30 AM EDT Home Care Visit [facility] [address] [place] [address] Monae Orr RN [address] [place] [address] carlos 01/31/2025 2:00 AM EDT Home Care Visit [facility] [address] [place] [address] Monae Orr RN [address] [place] [address] carlos 02/02/2025 1:00 AM EDT Home Care Visit [facility] [address] [place] [phone] Monae Orr RN [address] [place] [address] carlos 02/07/2025 1:00 AM EDT Home Care Visit [facility] [address] [place] [phone] Monae Orr, JUVE [address] [place] [address] carlos 02/09/2025 Home Care Visit [facility] [address] [place] [phone] Monae Orr RN [address] [place] [address] carlos 02/14/2025 12:30 AM EDT Home Care Visit [facility] [address] [place] [phone] Monae Orr RN [address] [place] [address] carlos 02/16/2025 12:30 AM EDT Home Care Visit [facility] [address] [place] [phone] Monae Orr RN [address] [place] [address] carlos 03/01/2025 4:00 PM EDT Office Visit [facility] [address] [place] [address] Chyna James MD [address] [place] [address], [address] [place] [address] [email or web address] 07/13/2025 2:00 PM EDT Office Visit [facility] [address] [place] [address] 3rd Floor, [address] [place] [address] Albert Paulino MD [address] [place] [address] documented as of this encounter Results * [...] 3.Mild chronic microvascular ischemic disease. Ayah Rao HEATER OPERATOR HELPER IMG CT HEAD/NECK Final Result documented in this encounter Visit Diagnoses Diagnosis Disorientation, unspecified- Primary Disorientation, unspecified documented in this encounter Additional Health Concerns Infection Onset Date Last Indicated Resolved Time CoV-Risk 11/26/2022 11/26/2022 12/07/2022 1:2 1 AM EDT CoV-Exposed Comment:Positive COVID-19 02/28/2024 02/28/2024 02/28/2024 7:2 9 PM EDT CoV-Risk 02/28/2024 02/28/2024 02/28/2024 7:29 PM EDT COVID-19 02/28/2024 02/28/2024 03/20/2024 1:24 AM EST documented as of this encounter Care Teams Cooker Casing Relationship Specialty Start Date End Date Snow Cueto MD [address] [place] [phone] [email or web address] PCP - General 02/18/17 Zenon Bruce MD [email or web address] Historical LMR Provider 02/18/17 Chyna James MD [address] [place] [address], [address] [place] [address] [email or web address] Historical LMR Provider 02/18/17 documented as of this encounter Additional Source Comments The information contained in this document represents components of the legal health record. It is not the complete legal health record.[facility]
== END 2025-01-20 09:16 | disposition home or self-care (01) ==
LOC: HO.CT 09:15
PROVIDERS: PCP Family Medicine; Visit Provider Psychiatry & Neurology Neurology
DX: G20.A1 Parkinson's disease without dyskinesia, without mention of fluctuations (principal)
CPT/HCPCS: 70450

== ENCOUNTER → 2025-01-20 09:18 | Outpatient (BNV) | payer MEDICARE, SELFPAY | PROVIDERS: PCP Family Medicine; Visit Provider Specialist | DX: G20.A1 Parkinson's disease without dyskinesia, without mention of fluctuations (principal) | CPT/HCPCS: 70450 ==

== ENCOUNTER 2025-02-08 10:28 | Outpatient (AMB) | payer MEDICARE, SELFPAY ==
--- NOTE | 2025-02-08 10:42 | MHC.OFFVIS ---
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 He is presenting with Parkinsonism with cognitive decline. He has been on carbidopa/levodopa but notices no improvement in tremor or mobility issues. These symptoms have developed over an unspecified duration and include reduced hand dexterity. The patient has Alzheimer's Disease, characterized by significant cognitive decline and diagnosed through imaging that shows extensive brain atrophy. This condition has developed slowly over many years, affecting cognition and physical abilities. The patient's medical history includes bilateral carpal tunnel syndrome with a history of surgery, arthritis, and confirmed peripheral neuropathy. These conditions aggravate mobility challenges. The patient maintains certain physical activities and exercises to mitigate these issues. [facility] Medical History (Updated 02/08/25 @ 10:52 by Neha Ansari MD) Peripheral neuropathy Osteoarthritis Multifactorial gait disorder Review of Systems Const Details: - Neurological: Reports issues with hand dexterity and tremor. Reports cognitive decline. - Musculoskeletal: Reports arthritis. Reports previous surgery for carpal tunnel syndrome. Reports neuropathy with nerve damage in hands. - General: Denies improvement in Parkinsonism symptoms with current medication. Physical Exam Neuro Other: Mental Status: Alert and oriented to person, place, and time. Normal attention. Normal spontaneous speech, fluency, and comprehension. No obvious issues with mood and memory. Affect is appropriate. Cranial Nerves: CN II: Visual harris full to confrontation, visual acuity intact. CN III, IV, : Pupils equal, round, reactive to light and accommodation. Extraocular movements are normal. CN V: Facial sensation is normal. CN VII: Facial movements symmetrical. CN VIII: Hearing intact to bedside conversation is normal. CN IX, X: Palate elevates symmetrically. CN XI: Shoulder shrug and head turn symmetrical. CN XII: Tongue midline without atrophy or fasciculations. Extrapyramidal: Full facial expressions and blinking. No rigidity. Movements are appropriate with no tremor or abnormality. Speech: Normal; no dysarthria or tremor. Assessment & Plan Assessment & Plan (1) Multifactorial gait disorder: Code(s): R26.89 - Other abnormalities of gait and mobility Category: Medical (2) Peripheral neuropathy: Code(s): G62.9 - Polyneuropathy, unspecified Category: Medical Qualifiers: Peripheral neuropathy type: polyneuropathy, unspecified Qualified Code(s): G62.9 - Polyneuropathy, unspecified (3) Parkinsonism: Code(s): G20.C - Parkinsonism, unspecified Category: Medical Qualifiers: Parkinsonism type: unspecified Qualified Code(s): G20.C - Parkinsonism, unspecified (4) Primary degenerative dementia of Alzheimer type: Code(s): G30.9 - Alzheimer's disease, unspecified; F02.80 - Dementia in other diseases classified elsewhere, unspecified severity, without behavioral disturbance, psychotic disturbance, mood disturbance, and anxiety Category: Medical (5) Carpal tunnel syndrome: Comment: EMG/NCS UEs at [facility] [place] in 2024: Severe right and moderate left median neuropathy across carpal tunnel, Moderate left and mild right ulnar neuropathy across cubital tunnel Code(s): G56.00 - Carpal tunnel syndrome, unspecified upper limb Category: Medical Qualifiers: Laterality: bilateral Qualified Code(s): G56.03 - Carpal tunnel syndrome, bilateral upper limbs (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 Moderate to severe degenerative brain process resulting in dementia and parkinsonism. 2. 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 3. Polyneuropathy affecting hands in addition to arthritis. Recommendations: 1. Continue carbidopa/levodopa 25/101 3 times a day 2. Memantine 5 mg twice a day 3. Common sense precautions to avoid any medical complications including having regular vaccination and avoiding stress and disease 4. Stay physically and socially active Medications: New memantine (Namenda) 5 mg PO BID 180 tabs 0RF Refilled carbidopa-levodopa 25-100 mg (Sinemet) 1 tab PO TID 270 tabs 1RF Coding Level of Care Code Est Pt Level 5 (43837) Diagnoses Multifactorial gait disorder R26.89 Peripheral polyneuropathy G62.9 Peripheral neuropathy type: polyneuropathy, unspecified Parkinsonism, unspecified Parkinsonism type G20.C Parkinsonism type: unspecified Primary degenerative dementia of Alzheimer type G30.9; F02.80 Bilateral carpal tunnel syndrome G56.03 Laterality: bilateral Ulnar neuropathy at elbow, unspecified laterality G56.20 Laterality: unspecified laterality
== END 2025-02-08 11:37 | disposition home or self-care (01) ==
LOC: HO.HSM 10:28
PROVIDERS: PCP Family Medicine; Visit Provider Psychiatry & Neurology Neurology
DX: R26.89 Other abnormalities of gait and mobility (principal); G62.9 Polyneuropathy, unspecified; G20.C Parkinsonism, unspecified; G30.9 Alzheimer's disease, unspecified; F02.80 Dementia in other diseases classified elsewhere, unspecified severity, without behavioral disturbance, psychotic disturbance, mood disturbance, and anxiety; G56.03 Carpal tunnel syndrome, bilateral upper limbs; G56.20 Lesion of ulnar nerve, unspecified upper limb
CPT/HCPCS: 99214

== ENCOUNTER → 2025-02-08 10:28 | Outpatient (BNVA) | payer MEDICARE, SELFPAY | PROVIDERS: PCP Family Medicine; Visit Provider Psychiatry & Neurology Neurology | DX: G20.C Parkinsonism, unspecified (principal); G30.9 Alzheimer's disease, unspecified; F02.80 Dementia in other diseases classified elsewhere, unspecified severity, without behavioral disturbance, psychotic disturbance, mood disturbance, and anxiety; G62.9 Polyneuropathy, unspecified; G56.03 Carpal tunnel syndrome, bilateral upper limbs; G56.20 Lesion of ulnar nerve, unspecified upper limb; R26.89 Other abnormalities of gait and mobility | CPT/HCPCS: 99212 ==